=== PATIENT | female | born 1950 | race Two or more races ===

== ENCOUNTER 2024-04-08 20:56 | Emergency (ER) | payer MEDICARE, MEDICAID, SELFPAY ==
--- NOTE | 2024-04-08 21:11 | EDNOTE_ITS ---
ED General RME/HPI General Chief complaint: Altered Mental Status Stated complaint: AMS Time Seen by Provider: 04/08/24 21:10 Arrival date/time: 04/08/24 20:56 RME / HPI RME / HPI narrative: Dr. Connolly?s Main ED Evaluation: 74yo female [place] from home presents to the ED for a chief complaint of altered mental status. Per EMS, patient was sent over for evaluation due to becoming altered after she was given Morphine 0.3 orally. EMS administered Narcan en route, which woke up the patient. Evidently, the patient is on hospice, but is a full code. Full ROS is unobtainable due to the patient's AMS. Related Data Previous Rx's ?Medication ?Instructions ?Recorded nitrofurantoin 100 mg PO Q12H 7 days #14 ca ps 04/09/24 monohydrate/macrocrystals 100 mg capsule (Macrobid) nitrofurantoin 100 mg PO Q12H 7 days #14 ca ps 04/09/24 monohydrate/macrocrystals 100 mg capsule (Macrobid) nitrofurantoin 100 mg PO Q12H 7 days #14 ca ps 04/09/24 monohydrate/macrocrystals 100 mg capsule (Macrobid) Allergies Allergy/AdvReac Type Severity Reaction Status Date / Time No Known Allergies Allergy Verified 04/08/24 21:34 Review of Systems Review of Systems ROS Unobtainable: unobtainable due to mental status ED Exam Narrative Physical exam: GENERAL APPEARANCE: somnolent, arousable to voice, seems to be altered to self, answers with 1-2 word sentences, no acute distress VITALS: All vitals were reviewed and the pulse ox is % on room air, which is normal according to my interpretation. HEENT: Normocephalic, atraumatic; pupils equal, round, reactive to light; EOMI; mucous membranes pink, moist; oropharynx clear NECK: Supple LUNGS: CTABL; no wheezes, no rales, no rhonchi HEART: Regular rate, regular rhythm; normal S1, S2; no murmurs ABDOMEN: non distended; normal BS; soft, no tenderness, no guarding, no rebound; no masses, no organomegaly, no hernia BACK: no CVA tenderness EXTREMITIES: atraumatic; no edema NEUROLOGIC: somnolent; cranial nerves II-XII grossly intact; no focal sensory or motor deficits PSYCHIATRIC: appropriate mood and affect SKIN: warm, dry, normal color; no rashes Course Course Course Narrative: CXR is ordered for determining the etiology of AMS. Quality Measures none Orders Category Date Time Status Bedside Blood Glucose NOW Care 04/08/24 21:27 Completed Supervisor Fish Processing NOW Care 04/08/24 21:27 Completed Continuous Pulse Oximetry NOW Care 04/08/24 21:27 Completed In and Out Catheter X1 Care 04/08/24 21:27 Completed Insert IV NOW Care 04/08/24 21:27 Completed Miscellaneous Nursing Order NOW Care 04/08/24 23:18 Completed XR chest 1V portable Stat Exams 04/08/24 21:29 Completed Alcohol, Blood Medical Stat Lab 04/08/24 22:11 Completed Ammonia Stat Lab 04/08/24 22:11 Completed CBC Stat Lab 04/08/24 22:11 Completed Comprehensive Metabolic Panel Stat Lab 04/08/24 22:11 Completed Drug Screen,Urine Stat Lab 04/08/24 23:40 Completed Magnesium Stat Lab 04/08/24 22:11 Completed Partial Thromboplastin Time Stat Lab 04/08/24 22:11 Completed Thyroid Stimulating Hormone Stat Lab 04/08/24 22:11 Completed Troponin I Stat Lab 04/08/24 22:11 Completed Urinalysis, C/S if Indicated Stat Lab 04/08/24 23:40 Completed Urine Culture Stat Lab 04/08/24 23:40 Received Dextrose 50% Syr [D50w Syringe Abboject] Med 04/08/24 22:48 Discontinued 25 ml IV X1 ONE Magnesium Oxide [Mag-Ox 400] Med 04/09/24 00:11 Discontinued 400 mg PO X1 ONE Sodium Chloride 0.9% 500 ml [Ns] 500 ml Med 04/08/24 21:27 Discontinued IV 500 mls/hr Vital Signs Vital signs: Vital Signs Temperature 98.8 F 04/08/24 21:18 Respiratory Rate 18 04/08/24 21:18 Pulse Oximetry (%) 100 04/08/24 21:18 Oxygen Delivery Method Nasal Cannula 04/08/24 21:18 Oxygen Flow Rate 2 04/08/24 21:18 [place] Patient data External records reviewed:: [facility] previous records (Per chart review, patient has no previous ED visits or admissions to this facility.) Clinical information provided by:: EMS Social determinants that could affect healthcare access:: none Patient has the following chronic illnesses:: unknown How is presenting disease/condition affected by chronic disease/condition?: no chronic disease (PMHx is unknown) Evaluation data The following diagnostics were reviewed and interpreted by me:: lab results, radiology exam(s) and EKG tracing(s) Lab and/or radiology exams considered but not ordered:: none Interpretation Summary: CBC is normal, CMP is normal, troponin is normal, UA is positive for a UTI, UDS is positive for opiates, according to my interpretation. EKG done at 2108, NSR, rate of 9, normal axis, no ectopy, RBBB, no acute ischemia, according to my interpretation. ----- [facility] Report Signed Patient: CHASE PLATT [facility] Record#: [id number] Birthdate: 1950 Age/Sex: 74 / F Location: [facility] Attending Dr: Ordering Physician: Jose Martin Connolly MD Date of Service: 04/08/24 Procedure(s): XR chest 1V portable Accession Number(s): [id number] cc: Geo Parada MD; Jose Martin Connolly MD~ Examination: AP chest single view Technique one AP portable semiupright chest single view Standing time: April 08, 2024 at 0946 hours INDICATIONS: Altered mental status coughing today FINDINGS: Normal heart size No pneumonia or pulmonary edema Moderate osteopenia IMPRESSION: No pneumonia or pulmonary edema Dictated By: Geo Parada MD Signed By: <Electronically signed by Geo Parada MD in [place]> 04/08/24 0177 Medications Medications considered but not ordered:: none Medication administrations:: Medication Administration History Discontinued Medications Dextrose (Dextrose 50%-Water Inj 50 Ml Syringe) 25 ml IV X1 ONE Stop: 04/08/24 22:49 Last Admin: 04/08/24 22:52 Dose: 25 ml Documented By: JANAE Sodium Chloride (Ns) 500 mls @ 500 mls/hr IV .Q1H ONE Stop: 04/08/24 22:26 Last Infusion: 04/08/24 23:03 Dose: Infused Documented By: Admin: 04/08/24 22:03 Dose: 500 mls/hr Documented By: KG Magnesium Oxide (Magnesium Oxide 400 Mg Tablet) 400 mg PO X1 ONE Stop: 04/09/24 00:12 Last Admin: 04/09/24 00:36 Dose: 400 mg Documented By: KG see above Consultations Consultation(s) initiated? (list below): No Diagnosis Differential Diagnosis ED Complaint MDM: morphine overdose,infectious v metabolic, renal insuffiiciency, dehydration Most likely diagnosis given after review of the tests above:: see below Admission Indicated Admission indicated?: not indicated Explain why admission is indicated or not indicated:: Admission criteria not met. Admission Request Was there a request for admission?: No Disposition Plan Disposition Plan: Discharge Discharge Attestation Discharge Attestation: The patient and all family members were given an opportunity to ask questions and understood the discharge instructions. Discharge instructions specifically effects, indications for sooner follow up or return to the emergency department, and the expected course of current diagnosis. Patient condition: Stable Medical Decision Making MDM Narrative MDM Narrative: Scribe Attestation: 04/08/24 - Cristel Patel am scribing for and in the presence of Dr. Connolly. Differential Diagnosis Differential Diagnosis: morphine overdose,infectious v metabolic, renal insuffiiciency, dehydration Lab Data 04/08/24 22:11 04/08/24 22:11 Labs: Lab Results 04/08/24 04/08/24 Range/Units 22:11 23:40 WBC 9.7 (3.6-11.0) Thou/mm3 RBC 3.58 L (4.00-5.20) Miln/mm3 Hgb 10.2 L (12.0-16.0) g/dL Hct 30.7 L (36.0-46.0) % MCV 86 (80-100) fL MCH 28.5 (25.0-35.0) pg MCHC 33.2 (31.0-37.0) g/dl RDW Std Deviation 42.9 (36.4-46.3) fL Plt Count 410 (140-440) Thou/mm3 Neut % (Auto) 57 (37-80) % Lymph % (Auto) 34 (10-50) % Archer % (Auto) 6 (0-12) % Eos % (Auto) 2 (0-10) % Baso % (Auto) 0 (0-2.5) % Neut # (Auto) 5.5 (1.8-7.7) Thou/mm3 Lymph # (Auto) 3.3 (1.0-4.8) Thou/mm3 Archer # (Auto) 0.6 (0.0-0.8) Thou/mm3 Eos # (Auto) 0.2 (0.0-0.5) Thou/mm3 Baso # (Auto) 0.0 (0.0-0.2) Thou/mm3 Immature Gran # (Auto) 0.03 H (0.00-0.00) Thou/mm3 Absolute Nucleated RBC 0.00 (0.00-0.00) Thou/mm3 Immature Gran % 0 (0-0) % Nucleated RBC % 0 (0) /100 WBC APTT 27.1 (22.0-36.0) Seconds Sodium 138 (136-145) mMol/L Potassium 4.0 (3.4-5.1) mMol/L Chloride 102 (98-107) mMol/L Carbon Dioxide 28.2 (20.0-31.0) mMol/L Anion Gap 8 (7-16) BUN 12 (9-23) mg/dL Creatinine 0.7 (0.6-1.3) mg/dL Estim Creat Clear Calc 76.1 (>60) mL/min eGFR > 60 (60 - ) See Note BUN/Creatinine Ratio 17 (12-20) Ratio Glucose 80 (74-106) mg/dL Calculated Osmolality 274 L (275-295) Calcium 9.7 (8.3-10.6) mg/dL Corrected Calcium 9.9 (8.5-10.1) mg/dL Magnesium 1.5 L (1.6-2.6) mg/dL Total Bilirubin 0.3 (0.3-1.2) mg/dL AST 19 (0-34) U/L ALT 8 L (10-49) U/L Alkaline Phosphatase 63 (46-116) U/L Ammonia < 10 L (11-32) uMol/L Troponin I < 0.020 (0.0-0.045) ng/mL Total Protein 6.9 (5.7-8.2) gm/dL Albumin 3.8 (3.4-4.8) gm/dL Globulin 3.1 (2.3-3.5) gm/dL Albumin/Globulin Ratio 1.2 (1.2-2.2) TSH 3.26 (0.55-4.78) uIU/mL Ur Collection Type Catheter Urine Color Lt-Yellow (Lt Yel-Yel) Urine Clarity Clear (Clear/Hazy) Urine pH 6.5 (5.0-7.0) Ur Specific [place] 1.010 (1.001-1.035) Urine Protein 1+ A (Neg - Trace) Urine Glucose (UA) 2+ A (Negative) Urine Ketones Negative (Negative) Urine Blood 1+ A (Negative) Urine Nitrite Negative (Negative) Urine Bilirubin Negative (Negative) Urine Urobilinogen (Auto) Negative (0.0-1.0) mg/dL Ur Leukocyte Esterase Positive (Negative) Urine RBC 4 H (0-3) /hpf Urine WBC 60 H (0-5) /hpf Ur Squamous Epith Cells 2 (0-5) /hpf Urine Bacteria None (None) Ur Culture Indicated? Yes Urine Opiates Screen Positive A (Negative) Urine Fentanyl Screen Negative (Negative) Ur Barbiturates Screen Negative (Negative) U Amphetamin/Meth Scrn Negative (Negative) U Benzodiazepines Scrn Negative (Negative) U Cocaine Metab Screen Negative (Negative) U Marijuana (THC) Screen Negative (Negative) Ethyl Alcohol < 3.0 (0-10.0) mg/dL Discharge Plan Plan Patient Disposition: HOME (Self Care) Disposition Comment: Stable for discharge Patient condition on transfer: Stable Prescriptions/Referrals Prescriptions/Med Rec: New nitrofurantoin monohyd/m-cryst [Macrobid] 100 mg capsule 100 mg PO Q12H 7 Days Qty: 14 0RF Rx Instructions: must administer with a meal/food nitrofurantoin monohyd/m-cryst [Macrobid] 100 mg capsule 100 mg PO Q12H 7 Days Qty: 14 0RF Rx Instructions: must administer with a meal/food nitrofurantoin monohyd/m-cryst [Macrobid] 100 mg capsule 100 mg PO Q12H 7 Days Qty: 14 0RF Rx Instructions: must administer with a meal/food Referrals: [facility] [Outside] - In 1 week Problem List Clinical Impression: Urinary tract infection Patient/Caregiver Discharge Instructions Discharge Activity: activity as tolerated Education Materials: Urinary Tract Infections in Women Additional Instructions: Please follow-up with your primary care doctor within the next several days or you can follow-up at the [facility] Please return to the ER if you are not improving within 48 hours or if you worsen in any way and we will help you There is an antibiotic waiting for you at your pharmacy. This antibiotic is called Macrobid. You should take that twice a day until they are completely gone. Print Language: Sierra Leonean Stand Alone Forms: [employer] Award Info., Patient Portal Info Letter
[2024-04-08 21:18] VITALS: RESP 18; TEMP 37.1; O2SAT 100
[2024-04-08 21:21] VITALS: PULSE 87; RESP 17; O2SAT 99; BMI 36.6
--- NOTE | 2024-04-08 21:29 | XR_ITS ---
Examination: AP chest single view Technique one AP portable semiupright chest single view Standing time: April 08, 2024 at 0946 hours INDICATIONS: Altered mental status coughing today FINDINGS: Normal heart size No pneumonia or pulmonary edema Moderate osteopenia IMPRESSION: No pneumonia or pulmonary edema
[2024-04-08] MEDS: SODIUM CHLORIDE 0.9% 500 ML 500 ML IV (22:03)
[2024-04-08 22:30] LABS: Basophils % (Auto) 0 % (0-2.5); Eosinophils # (Auto) 0.2 Thou/mm3 (0.0-0.5); Eosinophils % (Auto) 2 % (0-10); Hematocrit 30.7 % (36.0-46.0); Hemoglobin 10.2 g/dL (12.0-16.0); Immature Granulocytes % (Auto) 0 % (0-0); Immature Granulocytes Auto 0.03 Thou/mm3 (0.00-0.00); Lymphocytes # (Auto) 3.3 Thou/mm3 (1.0-4.8); Lymphocytes % (Auto) 34 % (10-50); Mean Corpuscular HGB Conc 33.2 g/dl (31.0-37.0); Mean Corpuscular Hemoglobin 28.5 pg (25.0-35.0); Mean Corpuscular Volume 86 fL (80-100); Monocytes # (Auto) 0.6 Thou/mm3 (0.0-0.8); Monocytes % (Auto) 6 % (0-12); Neutrophils # (Auto) 5.5 Thou/mm3 (1.8-7.7); Neutrophils % (Auto) 57 % (37-80); Nucleated Red Blood Cell % 0 /100 WBC (0); Platelet Count 410 Thou/mm3 (140-440); RDW Standard Deviation 42.9 fL (36.4-46.3); Red Blood Count 3.58 Miln/mm3 (4.00-5.20); White Blood Count 9.7 Thou/mm3 (3.6-11.0)
[2024-04-08 22:52] LABS: Ammonia < 10 uMol/L (11-32)
[2024-04-08] MEDS: DEXTROSE 50%-WATER INJ 50 ML SYRINGE 25 ML IV (22:52)
[2024-04-08 22:56] LABS: Partial Thromboplastin Time 27.1 Seconds (22.0-36.0)
[2024-04-08 23:07] VITALS: BP 146/72; PULSE 92; RESP 15; O2SAT 100
[2024-04-08 23:10] LABS: Alanine Aminotransferase 8 U/L (10-49); Albumin, Serum 3.8 gm/dL (3.4-4.8); Albumin/Globulin Ratio 1.2 (1.2-2.2); Alkaline Phosphatase 63 U/L (46-116); Anion Gap 8 (7-16); Aspartate Amino Transferase 19 U/L (0-34); BUN/Creatinine Ratio 17 Ratio (12-20); Bilirubin,Total 0.3 mg/dL (0.3-1.2); Blood Urea Nitrogen 12 mg/dL (9-23); Calcium 9.7 mg/dL (8.3-10.6); Calcium (Corrected) 9.9 mg/dL (8.5-10.1); Carbon Dioxide 28.2 mMol/L (20.0-31.0); Chloride 102 mMol/L (98-107); Creatinine (Component) 0.7 mg/dL (0.6-1.3); Estimated Creatinine Clearance 76.1 mL/min (>60); Globulin 3.1 gm/dL (2.3-3.5); Glucose 80 mg/dL (74-106); Magnesium 1.5 mg/dL (1.6-2.6); Osmolality,Calculated 274 (275-295); Sodium 138 mMol/L (136-145); Thyroid Stimulating Hormone 3.26 uIU/mL (0.55-4.78); Total Protein 6.9 gm/dL (5.7-8.2); Troponin I < 0.020 ng/mL (0.0-0.045); eGFR > 60 See Note
[2024-04-08 23:11] LABS: Alcohol, Blood Medical < 3.0 mg/dL (0-10.0)
[2024-04-08 23:47] LABS: Collection Type, Urine Catheter
[2024-04-08 23:58] LABS: Bilirubin,Urine Negative (Negative); Blood,Urine 1+ (Negative); Clarity,Urine Clear (Clear/Hazy); Color,Urine Lt-Yellow (Lt Yel-Yel); Culture Indicated,Urine Yes; Glucose, Urine 2+ (Negative); Ketones,Urine Negative (Negative); Leukocyte Esterase,Urine Positive (Negative); Nitrite,Urine Negative (Negative); PH,Urine 6.5 (5.0-7.0); Protein,Urine 1+ (Neg - Trace); RBC,Urine 4 /hpf (0-3); Squamous Epithelial Cell,Urine 2 /hpf (0-5); Urobilinogen,Urine Negative mg/dL (0.0-1.0); WBC,Urine 60 /hpf (0-5)
[2024-04-09 00:05] LABS: Amphetamine/Methamp Scrn,U Negative (Negative); Barbiturate Screen,Urine Negative (Negative); Benzodiazepines Screen,Urine Negative (Negative); Benzoylecgonine Screen, Ur Negative (Negative); Fentanyl Screen,Urine Negative (Negative); Opiate Screen,Urine Positive (Negative); THC Screen,Urine Negative (Negative)
[2024-04-09] MEDS: MAGNESIUM OXIDE 400 MG TABLET PO (00:36)
[2024-04-09 00:42] VITALS: BP 154/75; PULSE 86; RESP 17; O2SAT 96
== END 2024-04-09 00:33 | disposition home or self-care (01) ==
LOC: SERX 04-09 06:34
PROVIDERS: Emergency Provider Emergency Medicine; Referring Provider Emergency Medicine
DX: N39.0 Urinary tract infection, site not specified (principal); R41.82 Altered mental status, unspecified; R05.9 Cough, unspecified
CPT/HCPCS: 36415; 71045; 80053; 80307; 80320; 81001; 82140; 83735; 84443; 84484; 85025; 85730; 87077; 87086; 87186; 96360; 99284; J7040; A9270; G0480

== ENCOUNTER 2024-05-04 10:07 | Emergency (ER) | payer MEDICARE, MEDICAID, SELFPAY ==
[2024-05-04 10:10] VITALS: BP 134/74; PULSE 121; RESP 18; TEMP 36.5; O2SAT 96
[2024-05-04 10:20] VITALS: PULSE 126; RESP 18; O2SAT 97; BMI 28.1
[2024-05-04 10:41] VITALS: BP 126/73; PULSE 113; RESP 16; TEMP 37.6; O2SAT 97
[2024-05-04 12:34] VITALS: BP 125/61; PULSE 98; RESP 15; TEMP 37; O2SAT 98
--- NOTE | 2024-05-04 12:36 | EDNOTE_ITS ---
ED Weakness RME/HPI General Chief complaint: Weakness Stated complaint: ALTERED WI/ FEVER, TACHYCARDIA, PAIN URINATION Time Seen by Provider: 05/04/24 11:48 Arrival date/time: 05/04/24 10:07 RME / HPI RME / HPI Narrative: DR. MAX MAIN ED EVALUATION: 74 year old female presents to the Emergency Department [facility] from care home with complaints of generalized weakness and nausea. Patient herself does not have any complaints. Patient thinks she came from home but she came from [facility]. PMHx: History of CVA with right sided deficits. Hypertension and diabetes. Related Data Previous Rx's ?Medication ?Instructions ?Recorded cephalexin 500 mg capsule 500 mg PO QID 3 days #12 cap s 05/04/24 Allergies Allergy/AdvReac Type Severity Reaction Status Date / Time No Known Allergies Allergy Verified 04/08/24 21:34 Review of Systems Review of Systems ROS Unobtainable: unobtainable due to mental status Past Medical History Past Medical History NEUROLOGIC: Positive Cerebrovascular Accident (RIGHT DEFICEITS) CARDIAC: Positive Hypertension; Negative Congestive Heart Failure RESPIRATORY: Negative Chronic Obstructive Pulmonary Disease (COPD) GENITOURINARY: Negative Renal Disease ENDOCRINE: Positive Diabetes Mellitus Type 2; Negative Diabetes Mellitus Type 1 Social History SMOKING STATUS: Never smoker SUBSTANCE USE: does not use ALCOHOL: Never ED Exam Narrative Physical exam: GENERAL APPEARANCE: Generally well-appearing, in no acute distress. HEENT: NC, AT. Dry mucosa. EOMI, clear conjunctiva, oropharynx clear. NECK: Supple without lymphadenopathy. No stiffness or restricted ROM. HEART: Normal rate and regular rhythm, normal S1/S1, no m/r/g LUNGS: CTAB, moving air well. No crackles or wheezes are heard. ABDOMEN: Soft, nontender, nondistended with good bowel sounds heard. BACK: No midline C/T/L spine pain or deformity, No CVAT, no obvious deformity. EXTREMITIES: Without cyanosis, clubbing or edema. MUSCULOSKELETAL: FROM of all major joints, no chest tenderness NEUROLOGICAL: Right facial droop. Right hemiplegia. Slurred speech. Skin: Warm and dry without any rash. Course Quality Measures none Orders Category Date Time Status Bedside COVID-19 Antigen Test NOW Care 05/04/24 12:39 Active Bedside Influenza A&B Antigen Test NOW Care 05/04/24 12:39 Completed In and Out Catheter X1 Care 05/04/24 12:[address] head/brain wo con Stat Exams 05/04/24 12:39 Completed CBC Stat Lab 05/04/24 13:46 Completed CMP [Comprehensive Metabolic Panel] Stat Lab 05/04/24 13:46 Completed Urinalysis Stat Lab 05/04/24 13:29 Completed Sodium Chloride 0.9% 1000 ml [Ns] 1,000 ml Med 05/04/24 12:39 Discontinued IV 999 mls/hr cefTRIAXone [Rocephin] 1,000 mg Med 05/04/24 15:05 Discontinued Lidocaine 1% 20 ml [Xylocaine 1% 20 ML] 2.1 ml IM X1 Vital Signs Vital signs: Vital Signs Temperature 97.7 F 05/04/24 10:10 Pulse Rate 121 H 05/04/24 10:10 Respiratory Rate 18 05/04/24 10:10 Blood Pressure 134/74 H 05/04/24 10:10 Pulse Oximetry (%) 96 05/04/24 10:10 Oxygen Delivery Method Room Air 05/04/24 10:10 Weakness MDM Narrative MDM Narrative:: IAnum am scribing for and in the presence of Dr. Max. Patient data External records reviewed:: [facility] previous records (Reviewed last ED visit dated 04/09/24, discharged with the following: UTI), EMS form and Long Term records Clinical information provided by:: patient and EMS Social determinants that could affect healthcare access:: housing (care home) Patient has the following chronic illnesses:: History of CVA with right sided deficits. Hypertension and diabetes. How is presenting disease/condition affected by chronic disease/condition?: exacerbated by Evaluation data The following diagnostics were reviewed and interpreted by me:: lab results and radiology exam(s) Lab and/or radiology exams considered but not ordered:: none Interpretation Summary: Procedure(s): CT head/brain wo con Accession Number(s): [id number] cc: Hermann Max MD; Geo Parada MD~ Examination: CT brain head without contrast. 2-D sagittal coronal reconstructions Date and time of exam:May 04, 2024 1332 hrs. Indications: Onset altered mental status today CTDI: vol (mGy):49.8 DLP: (mGycm):1034 Technique: Multiple CT axial sections of the brain have been obtained, 5 mm slice thickness. Contrast has not been administered. 2-D sagittal, coronal reconstructions have been obtained Low dose protocols were performed. One or more of the following dose reduction techniques were used; automated exposure control, adjustment of the mA and/or KV according to patient size, use of iterative reconstruction technique. Findings: No significant ventricular enlargement. Old infarct left basal ganglia Intra-axial or extra-axial hemorrhage density is not seen. No mass effect or midline shift Basal cisterns are not remarkable. Fourth ventricle is midline. Cranial vault intact. Impression: Negative for acute hemorrhage, mass effect or midline shift Advise clinical correlation and follow-up accordingly Dictated By: Geo Parada MD Medications / Prescriptions Medications or Prescriptions considered but not ordered:: none Medication administrations:: Medication Administration History Discontinued Medications Ceftriaxone Sodium 1,000 mg/ (Lidocaine HCl 2.1 ml) 0 mg IM X1 ONE Stop: 05/04/24 15:06 Last Admin: 05/04/24 16:34 Dose: 2.1 mg Documented By: JOSE MARIA Sodium Chloride (Ns) 1,000 mls @ 999 mls/hr IV .Q1H1M ONE Stop: 05/04/24 13:39 Last Infusion: 05/04/24 15:36 Dose: Infused Documented By: JOSE MARIA Admin: 05/04/24 13:41 Dose: 999 mls/hr Documented By: JOE see above if any Consultations Consultation(s) initiated? (list below): No Diagnosis Weakness Differential Diagnosis: acute myocardial infarction, dehydration and other (CVA, TIA) Most likely diagnosis given after review of the tests above:: Acute UTI Admission Indicated Admission indicated?: not indicated Admission Request Was there a request for admission?: No Disposition Plan Disposition Plan: Discharge Discharge Attestation Discharge Attestation: The patient and all family members were given an opportunity to ask questions and understood the discharge instructions. Discharge instructions specifically effects, indications for sooner follow up or return to the emergency department, and the expected course of current diagnosis. Patient condition: Stable Discharge Plan Plan Patient Disposition: HOME (Self Care) Prescriptions/Referrals Prescriptions/Med Rec: New cephalexin 500 mg capsule 500 mg PO QID 3 Days Qty: 12 0RF Problem List Clinical Impression: Acute UTI Patient/Caregiver Discharge Instructions Education Materials: ED CYSTITIS Female Adult Print Language: Slovenian Stand Alone Forms: [employer]ica Award Info., Patient Portal Info Letter
--- NOTE | 2024-05-04 12:39 | XR_ITS ---
Examination: CT brain head without contrast. 2-D sagittal coronal reconstructions Date and time of exam:May 04, 2024 1332 hrs. Indications: Onset altered mental status today CTDI: vol (mGy):49.8 DLP: (mGycm):1034 Technique: Multiple CT axial sections of the brain have been obtained, 5 mm slice thickness. Contrast has not been administered. 2-D sagittal, coronal reconstructions have been obtained Low dose protocols were performed. One or more of the following dose reduction techniques were used; automated exposure control, adjustment of the mA and/or KV according to patient size, use of iterative reconstruction technique. Findings: No significant ventricular enlargement. Old infarct left basal ganglia Intra-axial or extra-axial hemorrhage density is not seen. No mass effect or midline shift Basal cisterns are not remarkable. Fourth ventricle is midline. Cranial vault intact. Impression: Negative for acute hemorrhage, mass effect or midline shift Advise clinical correlation and follow-up accordingly
[2024-05-04 13:34] LABS: Collection Type, Urine Catheter; Squamous Epithelial Cell,Urine 0 /hpf (0-5)
[2024-05-04] MEDS: SODIUM CHLORIDE 0.9% 1000 ML 1,000 ML 999 ML IV (13:41)
[2024-05-04 13:51] LABS: Bacteria,Urine 1+; Bilirubin,Urine Negative (Negative); Blood,Urine 3+ (Negative); Glucose, Urine Negative (Negative); Hyaline Casts,Urine < 1 /hpf (0-1); Ketones,Urine 3+ (Negative); Leukocyte Esterase,Urine Positive (Negative); Nitrite,Urine Positive (Negative); Protein,Urine 3+ (Neg - Trace); RBC,Urine 73 /hpf (0-3); Specific Gravity,Urine 1.024 (1.001-1.035); Triple Phosphate Crystal,Urine Rare; WBC,Urine 265 /hpf (0-5)
[2024-05-04 13:51] LABS: Basophils # (Auto) 0.1 Thou/mm3 (0.0-0.2); Basophils % (Auto) 1 % (0-2.5); Eosinophils # (Auto) 0.3 Thou/mm3 (0.0-0.5); Eosinophils % (Auto) 3 % (0-10); Hematocrit 36.9 % (36.0-46.0); Hemoglobin 12.5 g/dL (12.0-16.0); Immature Granulocytes % (Auto) 0 % (0-0); Immature Granulocytes Auto 0.05 Thou/mm3 (0.00-0.00); Lymphocytes # (Auto) 2.7 Thou/mm3 (1.0-4.8); Lymphocytes % (Auto) 21 % (10-50); Mean Corpuscular HGB Conc 33.9 g/dl (31.0-37.0); Mean Corpuscular Hemoglobin 28.9 pg (25.0-35.0); Mean Corpuscular Volume 85 fL (80-100); Monocytes # (Auto) 0.6 Thou/mm3 (0.0-0.8); Monocytes % (Auto) 5 % (0-12); Neutrophils # (Auto) 8.9 Thou/mm3 (1.8-7.7); Neutrophils % (Auto) 71 % (37-80); Nucleated Red Blood Cell % 0 /100 WBC (0); Platelet Count 451 Thou/mm3 (140-440); Red Blood Count 4.32 Miln/mm3 (4.00-5.20); White Blood Count 12.6 Thou/mm3 (3.6-11.0)
[2024-05-04 14:12] LABS: Alanine Aminotransferase 10 U/L (10-49); Albumin, Serum 3.9 gm/dL (3.4-4.8); Albumin/Globulin Ratio 1.1 (1.2-2.2); Alkaline Phosphatase 67 U/L (46-116); Anion Gap 14 (7-16); Aspartate Amino Transferase 21 U/L (0-34); BUN/Creatinine Ratio 26 Ratio (12-20); Bilirubin,Total 0.2 mg/dL (0.3-1.2); Blood Urea Nitrogen 26 mg/dL (9-23); Calcium 9.7 mg/dL (8.3-10.6); Calcium (Corrected) 9.8 mg/dL (8.5-10.1); Chloride 101 mMol/L (98-107); Estimated Creatinine Clearance 46.6 mL/min (>60); Globulin 3.6 gm/dL (2.3-3.5); Glucose 95 mg/dL (74-106); Osmolality,Calculated 276 (275-295); Potassium 4.5 mMol/L (3.4-5.1); Sodium 136 mMol/L (136-145); Total Protein 7.5 gm/dL (5.7-8.2); eGFR 60 See Note
[2024-05-04 14:32] LABS: Clarity,Urine Turbid (Clear/Hazy); Color,Urine Lt-Yellow (Lt Yel-Yel)
[2024-05-04 14:37] VITALS: BP 140/62; PULSE 111; RESP 13; TEMP 36.7; O2SAT 98
[2024-05-04 16:31] VITALS: BP 147/60; PULSE 106; RESP 18; TEMP 36.6; O2SAT 97
[2024-05-04] MEDS: cefTRIAXone 1,000 MG, LIDOCAINE 1% 20 ML 2.1 ML IM (16:34)
--- NOTE | 2024-05-04 17:35 | PC.CC ---
Sponge Buffer, Lynda informed by Gail that patient was going to be discharge home. Patient is bedbound due to a previous CVA. SW contacted patient's [id number], Cinthia ([phone]) that she was going to discharge home via stretcher. [facility]: [id number]. Information faxed to [facility].
== END 2024-05-04 21:07 | disposition home or self-care (01) ==
LOC: SERX 17:27
PROVIDERS: Emergency Provider Emergency Medicine; PCP Hospitalist
DX: N39.0 Urinary tract infection, site not specified (principal); I10 Essential (primary) hypertension; E11.9 Type 2 diabetes mellitus without complications; I69.351 Hemiplegia and hemiparesis following cerebral infarction affecting right dominant side
CPT/HCPCS: 51701; 36415; 70450; 80053; 81001; 85025; 87400; 87811; 96360; 96361; 96372; 99284; J0696; J3490; J7030

== ENCOUNTER 2024-05-23 10:18 | Inpatient (IN) | payer MEDICARE, MEDICAID, SELFPAY ==
[2024-05-23] VITALS (8 sets, daily range): BP systolic 118–139; BP diastolic 63–84; PULSE 90–110; RESP 16–98; TEMP 36.3–37.7; O2SAT 94–98; BMI 26.6
--- NOTE | 2024-05-23 11:09 | PC.NURSE ---
Patient BIBA via gurney presenting with Altered mental status reported by EMS, per family patient went to bed last night and awoke about 9am and noted patient was not well. Patient at this time, is non verbal only calling out daddy does respond to name, does follow some commands, hx of previous stroke noted right arm defecit and facial paralysis. Patient wears a brief. Patient also with episodes of emesis with EMS x3. RN attempted to call family to inquire of patient condition, no answer, phone went directly to voicemail at [place] [phone].
--- NOTE | 2024-05-23 11:23 | EKG_ITS ---
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
--- NOTE | 2024-05-23 11:24 | XR_ITS ---
EXAMINATION: XR chest 1V SEPSIS PROTOCOL ORDERING PROVIDER: IDANIA Bowers HISTORY: Sepsis TECHNIQUE: Single portable AP radiograph of the chest. COMPARISON: 04/08/2024, chest radiographs. FINDINGS: Lines and Tubes: Overlying monitoring leads. Lungs: No consolidation. Probable emphysematous changes. Pleura: No pneumothorax or pleural effusion. Cardiomediastinal Silhouette: Uncoiled aorta. Calcified aortic arch. Soft Tissues/Bones: Diffuse osteopenia. Moderate degenerative changes. IMPRESSION: No acute pulmonary findings.
--- NOTE | 2024-05-23 11:24 | XR_ITS ---
EXAMINATION: CT head/brain wo con ORDERING PROVIDER: IDANIA Bowers HISTORY: ams TECHNIQUE: CT scanner was used in the volumetric, helical non-contrast acquisition of the head with 2-D and 3-D reformats created on a separate workstation and submitted for interpretation. Institutional dose reducing protocols were utilized. Imaging is motion degraded. RADIATION DOSE: DLP 989 mGy-cm COMPARISON: 05/04/2024, noncontrast CT head.. FINDINGS: No acute intracranial hemorrhage, mass effect, or midline shift. Similar extensive periventricular and subcortical white matter hypodensities. Similar probable old lacunar infarcts left basal ganglia, thalamus, external capsule. Mild global parenchymal volume loss with resultant mild prominence of the ventricles and sulci. Basal cisterns preserved. No hyperdense vessel sign. Atrophy of the cerebellar vermis. No skull fracture identified. Evolving high right frontal scalp hematoma. Diffuse demineralization. IMPRESSION: 1. No acute intracranial hemorrhage, mass effect, or midline shift. 2. Evolving high right frontal scalp hematoma. 3. Findings favored to represent extensive chronic small vessel ischemic changes and old left lacunar infarcts.
--- NOTE | 2024-05-23 11:25 | EDNOTE_ITS ---
Altered Mental Status RME/HPI General Chief Complaint: Altered Mental Status Stated Complaint: AMS Time Seen by Provider: 05/23/24 11:15 Arrival date/time: 05/23/24 10:18 RME / HPI RME / HPI narrative: 74-year-old who was brought in by family for evaluation regarding altered mental status. patient has significant history of CVA with right-sided weakness. Patient last well-known time was last night before going to sleep, patient woke up this morning altered. Patient nonverbal on my initial evaluation.. Was noted to have fever and tachycardic, sepsis alert was initiated right away. 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 This morning patient was noted to be vomiting. And more altered than usual. Patient was not noted to have fever. No diarrhea or constipation noted. Related Data Allergies Allergy/AdvReac Type Severity Reaction Status Date / Time No Known Allergies Allergy Verified 04/08/24 21:34 Review of Systems Review of Systems Narrative Review of Systems: Review of system reviewed and within normal limits except mentioned in HPI ED Exam Narrative Physical exam: VITAL SIGNS: Reviewed. GENERAL APPEARANCE: Alert and awake, nonverbal, does not follows commands, no acute distress, HEAD AND FACE: Non-traumatic. ENT: PERRL, pink conjunctivitis, eyelid no trauma, Mucous membrane moist. NECK: Supple, nontender, no nuchal rigidity. CHEST: No tenderness, no crepitus, no paradoxical movement, no retractions. LUNGS: Clear, well ventilated, symmetric, no rales, no wheezing, no ronchi, no stridor, good breath sounds bilaterally. HEART: Regular rate, regular rhythm, no murmur, no gallops. ABDOMEN: Soft, positive bowel sounds, nondistended, no guarding, nontender, no rebound, no masses, RECTAL: Deferred. GENITAL: Deferred. NEUROLOGICAL: Gross motor function intact sensory function intact, Appropriate for age. MUSCULOSKELETAL: low back nontender, full range of motion. EXTREMITIES: Nontender, full range of motion. SKIN: Color pink, dry, no rash, no lacerations, no abrasions, no contusions. LYMPHATICS: Deferred. Course Quality Measures none Orders Category Date Time Status Bedside COVID-19 Antigen Test NOW Care 05/23/24 11:25 Active Bedside Influenza A&B Antigen Test NOW Care 05/23/24 11:[address] Screening NOW Care 05/23/24 15:31 Active Multimedia Teacher STAT Care 05/23/24 11:23 Active Continuous Pulse Oximetry STAT Care 05/23/24 11:23 Completed EKG (ED ONLY) *Do not use* NOW Care 05/23/24 11:23 Completed In and Out Catheter X1PRN Care 05/23/24 11:23 Completed Insert IV NOW Care 05/23/24 11:23 Active NPO STAT Care 05/23/24 11:23 Active Strict Intake and Output Routine Care 05/23/24 11:23 Ordered Consult to Cardiology Stat Cons 05/23/24 17:[address] abdomen pelvis w con Stat Exams 05/23/24 15:[address] head/brain wo con Stat Exams 05/23/24 11:24 Completed EKG (ED Only) Stat Exams 05/23/24 11:23 Draft XR chest 1V SEPSIS PROTOCOL Stat Exams 05/23/24 11:24 Completed B-Type Natriuretic Peptide Stat Lab 05/23/24 11:33 Completed Blood Culture (Lab) Stat Lab 05/23/24 11:33 Received CBC Stat Lab 05/23/24 11:33 Completed Comprehensive Metabolic Panel Stat Lab 05/23/24 11:33 Completed LDH (Lactate Dehydrogenase) Stat Lab 05/23/24 11:33 Completed Lactate (Lactic Acid) Stat Lab 05/23/24 11:33 Completed Lactic Acid, 3 HR Stat Lab 05/23/24 15:35 Completed Lipase Stat Lab 05/23/24 11:33 Completed Magnesium Stat Lab 05/23/24 11:33 Completed Partial Thromboplastin Time Stat Lab 05/23/24 11:33 Completed Phosphorous Stat Lab 05/23/24 11:33 Completed Procalcitonin Stat Lab 05/23/24 11:33 Completed Prothrombin Time with INR Stat Lab 05/23/24 11:33 Completed Troponin I Stat Lab 05/23/24 11:33 Completed Troponin I Stat Lab 05/23/24 13:50 Completed Troponin I Stat Lab 05/23/24 18:19 Received Urinalysis Stat Lab 05/23/24 13:16 Completed Urine Culture Stat Lab 05/23/24 13:16 Received Aspirin Med 05/23/24 15:17 Discontinued 325 mg PO X1 ONE Metoclopramide Inj [Reglan Inj] Med 05/23/24 15:28 Discontinued 10 mg IVP X1 ONE Morphine Inj Med 05/23/24 15:28 Discontinued 4 mg IVP X1 ONE Ondansetron Inj [Zofran Inj] Med 05/23/24 15:28 Discontinued 4 mg IV X1 ONE Sodium Chloride 0.9% 1000 ml [Ns] 1,000 ml Med 05/23/24 11:24 Discontinued IV 999 mls/hr Sodium Chloride 0.9% 1000 ml [Ns] 1,000 ml Med 05/23/24 15:35 Discontinued IV 999 mls/hr cefTRIAXone [Rocephin] 1,000 mg Med 05/23/24 11:23 Discontinued SODIUM CHLORIDE 0.9% (Popper) [Ns 0.9% (P)] 50 ml IV X1 Oxygen Delivery NOW RT 05/23/24 11:23 Active Vital Signs Vital signs: Vital Signs Temperature 99.9 F 05/23/24 10:49 Pulse Rate 108 H 05/23/24 10:49 Respiratory Rate 16 05/23/24 10:49 Blood Pressure 139/84 H 05/23/24 10:49 Pulse Oximetry (%) 96 05/23/24 10:49 Oxygen Delivery Method Room Air 05/23/24 10:49 Altered Mental Status MDM Narrative MDM Narrative:: 74-year-old who was brought in by family for evaluation regarding altered mental status. patient has significant history of CVA with right-sided weakness. Patient last well-known time was last night before going to sleep, patient woke up this morning altered. Patient nonverbal on my initial evaluation.. Was noted to have fever and tachycardic, sepsis alert was initiated right away. 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 This morning patient was noted to be vomiting. And more altered than usual. Patient was not noted to have fever. No diarrhea or constipation noted. EKG as interpreted by me shows sinus tachycardia, ventricular rate of 110 bpm, W[place] interval 127 MS, no ST segment elevation or depression noted. Laboratory workup is significant for leukocytosis of 11.9 urinalysis no UTI, creatinine is normal lactic acid 2.1 magnesium 1.5 troponin initially was 0.149, after 3 hours went up to 0.314 On multiple reevaluation, patient is now able to talk, and complaining of epigastric pain I ordered CT scan of the abdomen and showed . Very limited examination due to patient motion and streak artifact. 2. Findings which can be seen with developing stercoral colitis. 3. Findings of concurrent colonic constipation and gastroenteritis. 4. Questionable proximal right femoral fracture in the setting of postsurgical changes. 5. Nonspecific very mild central intrahepatic biliary dilation. 6. Indeterminate 1.0 cm left adrenal nodule. Routine outpatient CT versus MR adrenal protocol is available for further characterization as clinically indicated. 7. Colonic diverticulosis without CT findings for diverticulitis. 8. Severe vasculopathic changes. 9. Hepatic steatosis. Denies any other complaints. Patient is hospice however patient is full code Patient was given IV fluids, IV Zosyn and aspirin. I consulted Dr. Núñez, cardiology on-call, told me that he will comanage the patient. Thank you Dr. Núñez Patient data External records reviewed:: EMS form Clinical information provided by:: patient and family Social determinants that could affect healthcare access:: none Patient has the following chronic illnesses:: CVA with right-sided paralysis, patient hospice however full code How is presenting disease/condition affected by chronic disease/condition?: exacerbated by Evaluation data The following diagnostics were reviewed and interpreted by me:: lab results, radiology exam(s) and EKG tracing(s) Lab and/or radiology exams considered but not ordered:: None Interpretation Summary: EKG showed sinus tachycardia, ventricular rate of 110 bpm, W[place] interval 127 MS, no ST segment elevation depression noted. The rest of the lab see MDM Medications / Prescriptions Medications or Prescriptions considered but not ordered:: none Medication administrations:: Medication Administration History Discontinued Medications Aspirin (Aspirin 325 Mg Tablet) 325 mg PO X1 ONE Stop: 05/23/24 15:18 Last Admin: 05/23/24 15:49 Dose: 325 mg Documented By: ELAN Ceftriaxone Sodium 1,000 mg/ (Sodium Chloride) 50 mls @ 100 mls/hr IV X1 ONE Stop: 05/23/24 11:52 Last Infusion: 05/23/24 12:34 Dose: Infused Documented By: Admin: 05/23/24 12:04 Dose: 100 mls/hr Documented By: ELAN Sodium Chloride (Ns) 1,000 mls @ 999 mls/hr IV .Q1H1M ONE Stop: 05/23/24 12:24 Last Infusion: 05/23/24 13:40 Dose: Infused Documented By: Admin: 05/23/24 12:06 Dose: 999 mls/hr Documented By: ELAN Sodium Chloride (Ns) 1,000 mls @ 999 mls/hr IV .Q1H1M ONE Stop: 05/23/24 16:35 Last Infusion: 05/23/24 18:13 Dose: Infused Documented By: Admin: 05/23/24 15:50 Dose: 999 mls/hr Documented By: ELAN Metoclopramide HCl (Metoclopramide Inj 5 Mg/Ml Vial 2 Ml) 10 mg IVP X1 ONE; Protocol Stop: 05/23/24 15:29 Last Admin: 05/23/24 15:46 Dose: 10 mg Documented By: ELAN Morphine Sulfate (Morphine Sulf Inj 10 Mg/Ml Vial) 4 mg IVP X1 ONE Stop: 05/23/24 15:29 Last Admin: 05/23/24 15:49 Dose: 4 mg Documented By: ELAN Ondansetron HCl (Ondansetron Inj 2 Mg/Ml Inj 2 Ml) 4 mg IV X1 ONE; Protocol Stop: 05/23/24 15:29 Last Admin: 05/23/24 15:41 Dose: 4 mg Documented By: ELAN Aspirin, ceftriaxone IV, IV fluids x 2 L, IV Reglan and morphine and Zofran Consultations Consultation(s) initiated? (list below): No Diagnosis Differential diagnosis altered mental status: altered mental status and sepsis Most likely diagnosis given after review of the tests above:: Elevated troponin, altered mental status Admission Indicated Admission indicated?: indicated Explain why admission is indicated or not indicated:: Patient is to be admitted for further management Admission Request Was there a request for admission?: Yes Admission Attestation Admission request attestation: Discussed case with [Dr. Vasquez] from Hospitalist service regarding admission. Discussed patients ED course, exam findings, labs, and radiology results. The Hospitalist [agrees] to accept the patient for admission. Disposition Plan Disposition Plan: Admit Discharge Plan Plan Patient Disposition: Admit Acute Care w/in Hospital Disposition Comment: Stable Prescriptions/Referrals Referrals: No Primary/Family,Physician [Primary Care Provider] - In 1 week Problem List Clinical Impression: Altered mental status, Elevated troponin Patient/Caregiver Discharge Instructions Discharge Activity: activity as tolerated Print Language: Portuguese Stand Alone Forms: [employer] Award Info., Patient Portal Info Letter
--- NOTE | 2024-05-23 11:40 | PC.NURSE ---
Rn spoke with Nati RN at [facility], patient is currently on service with hospice, patient remains full code and per Nati will fax POLST. Per Nati, patient is normally able to speak, verbalize needs and attempts to get out of bed alone. Patient is cared for by family but there has been a recent event with patients mother and new stroke diagnosis and family has not been as attentive to patient. Per Nati, patient could be more confused than her baseline.
[2024-05-23 11:42] LABS: Lactate (Lactic Acid) 2.1 mMol/L (0.4-2.0)
[2024-05-23 11:44] LABS: Basophils % (Auto) 0 % (0-2.5); Eosinophils % (Auto) 0 % (0-10); Hematocrit 40.2 % (36.0-46.0); Hemoglobin 13.1 g/dL (12.0-16.0); Immature Granulocytes % (Auto) 1 % (0-0); Immature Granulocytes Auto 0.11 Thou/mm3 (0.00-0.00); Lymphocytes # (Auto) 1.2 Thou/mm3 (1.0-4.8); Lymphocytes % (Auto) 10 % (10-50); Mean Corpuscular HGB Conc 32.6 g/dl (31.0-37.0); Mean Corpuscular Hemoglobin 28.7 pg (25.0-35.0); Mean Corpuscular Volume 88 fL (80-100); Monocytes # (Auto) 0.3 Thou/mm3 (0.0-0.8); Monocytes % (Auto) 3 % (0-12); Neutrophils # (Auto) 10.2 Thou/mm3 (1.8-7.7); Neutrophils % (Auto) 86 % (37-80); Nucleated Red Blood Cell % 0 /100 WBC (0); Platelet Count 419 Thou/mm3 (140-440); RDW Standard Deviation 48.8 fL (36.4-46.3); Red Blood Count 4.56 Miln/mm3 (4.00-5.20); White Blood Count 11.9 Thou/mm3 (3.6-11.0)
[2024-05-23 11:59] LABS: B-Type Natriuretic Peptide 54 pg/mL (0-100)
[2024-05-23] MEDS: cefTRIAXone 1,000 MG in SODIUM CHLORIDE 0.9% (Popper) 50 ML 100 MG IV (12:04)
[2024-05-23] MEDS: SODIUM CHLORIDE 0.9% 1000 ML 1,000 ML 999 ML IV ×2 (12:06→15:50)
[2024-05-23 12:11] LABS: Partial Thromboplastin Time 26.5 Seconds (22.0-36.0); Prothrombin Time 11.4 Seconds (9.0-12.2)
[2024-05-23 12:14] LABS: Alanine Aminotransferase 8 U/L (10-49); Alkaline Phosphatase 74 U/L (46-116); Anion Gap 13 (7-16); Aspartate Amino Transferase 22 U/L (0-34); BUN/Creatinine Ratio 24 Ratio (12-20); Bilirubin,Total 0.5 mg/dL (0.3-1.2); Blood Urea Nitrogen 29 mg/dL (9-23); Chloride 100 mMol/L (98-107); Creatinine (Component) 1.2 mg/dL (0.6-1.3); Estimated Creatinine Clearance 42.3 mL/min (>60); Globulin 4.1 gm/dL (2.3-3.5); Glucose 146 mg/dL (74-106); Lipase 44 U/L (12-53); Magnesium 1.5 mg/dL (1.6-2.6); Osmolality,Calculated 286 (275-295); Phosphorous 3.8 mg/dL (2.4-5.1); Potassium 4.5 mMol/L (3.4-5.1); Procalcitonin 0.48 ng/ml (0.0-0.49); Sodium 139 mMol/L (136-145); Total Protein 8.1 gm/dL (5.7-8.2); eGFR 48 See Note
[2024-05-23 12:16] LABS: Troponin I 0.149 ng/mL (0.0-0.045)
[2024-05-23 13:24] LABS: Collection Type, Urine Clean Catch
[2024-05-23 13:32] LABS: Bacteria,Urine Rare; Bilirubin,Urine Negative (Negative); Blood,Urine Trace (Negative); Clarity,Urine Clear (Clear/Hazy); Color,Urine Yellow (Lt Yel-Yel); Glucose, Urine Negative (Negative); Hyaline Casts,Urine < 1 /hpf (0-1); Ketones,Urine 1+ (Negative); Leukocyte Esterase,Urine Positive (Negative); Nitrite,Urine Negative (Negative); PH,Urine 5.5 (5.0-7.0); Protein,Urine 2+ (Neg - Trace); RBC,Urine 1 /hpf (0-3); Specific Gravity,Urine 1.023 (1.001-1.035); Squamous Epithelial Cell,Urine 2 /hpf (0-5); Urobilinogen,Urine Negative mg/dL (0.0-1.0); WBC,Urine 7 /hpf (0-5)
[2024-05-23 14:38] LABS: Reflex Lactate? Y
[2024-05-23 15:07] LABS: Troponin I 0.314 ng/mL (0.0-0.045)
[2024-05-23 15:22] LABS: LDH (Lactate Dehydrogenase) 265 U/L (120-246)
--- NOTE | 2024-05-23 15:30 | XR_ITS ---
EXAMINATION: CT abdomen pelvis w con ORDERING PROVIDER: IDANIA Bowers HISTORY: Epigastric pain TECHNIQUE: After the uneventful administration of 60 cc of IV Isovue-370 and no oral contrast, CT was used in the volumetric, helical imaging acquisition of the abdomen and pelvis with 2-D and 3-D reformats generated on a separate workstation and submitted for interpretation. Institutional dose reducing protocols were utilized. Evaluation of hollow viscus and solid viscera is limited secondary to lack of oral contrast. Examination is markedly limited due to patient motion, as well as metallic streak artifact and poor photon penetration from overlying extremities. RADIATION DOSE: DLP 758 mGy-cm COMPARISON: None. FINDINGS: Very limited examination due to significant patient motion, metallic streak artifact, and streak artifact from overlying extremities. Hepatic steatosis. Pippa's morphology. Decompressed gallbladder. Trace central intrahepatic biliary dilation. Moderate atrophy of the pancreas. Calcifications in the pancreatic head may be from chronic pancreatitis. Spleen unremarkable. Incidental splenule. Nodular adrenal gland and on the right without discrete lesion. 1.0 cm left adrenal nodule measuring 46 Hounsfield units. Mild bilateral perinephric fat stranding. No pelvic caliectasis. Subcentimeter hypodensity superior left renal pole too small to characterize. Rectum is distended by 7.6 cm stool ball with mild surrounding inflammatory changes. Inflammatory changes about the distal rectum/annulus. Multiple colonic diverticula without surrounding inflammatory changes. Large colonic stool burden, inspissated. Fluid density in the cecum and terminal ileum. Heavy coronary artery calcifications. Mild dilation of the left atrium. Mitral annular calcifications. Atrial valve calcifications. Moderate aortoiliac calcific atherosclerotic disease. Heavy calcifications of the celiac origin, splenic artery branches separate origin of the left gastric artery from the aorta. 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 Hysterectomy changes. Bibasilar mild dependent atelectasis and scarring. Severe osteoporosis. Partially evaluated right femoral neck screw and interlocking proximal femoral intramedullary nail. The femoral neck screw component extending through the greater trochanter is proud. There is a bony irregularity there is a proximal femur inferior to the right greater trochanter, series 10 image 322 and series 12 image 139. There is partial lumbarization of L5. Grade 1 anterolisthesis of L3 on L4 is seen. Multilevel bridging syndesmophytes and osteophytes are present. There is severe lower lumbar spine facet arthrosis. IMPRESSION: 1. Very limited examination due to patient motion and streak artifact. 2. Findings which can be seen with developing stercoral colitis. 3. Findings of concurrent colonic constipation and gastroenteritis. 4. Questionable proximal right femoral fracture in the setting of postsurgical changes. 5. Nonspecific very mild central intrahepatic biliary dilation. 6. Indeterminate 1.0 cm left adrenal nodule. Routine outpatient CT versus MR adrenal protocol is available for further characterization as clinically indicated. 7. Colonic diverticulosis without CT findings for diverticulitis. 8. Severe vasculopathic changes. 9. Hepatic steatosis.
[2024-05-23 15:40] LABS: Lactic Acid, 3 HR 1.1 mMol/L (0.4-2.0)
[2024-05-23] MEDS: ONDANSETRON INJ 2 MG/ML INJ 2 ML 4 MG IV (15:41)
[2024-05-23] MEDS: METOCLOPRAMIDE INJ 5 MG/ML VIAL 2 ML 10 MG IVP (15:46)
[2024-05-23] MEDS: MORPHINE SULF INJ 10 MG/ML VIAL 4 MG IVP (15:49)
[2024-05-23] MEDS: Aspirin 325 MG TABLET PO (15:49)
--- NOTE | 2024-05-23 16:37 | PC.NURSE ---
RN attempted to call Cinthia to get CT questionare, no answer, went directly to voicemail.
--- NOTE | 2024-05-23 21:08 | ESHP_ITS ---
<Statement entered by Yaya Rhoades MD - 05/24/24 04:30> 74-year-old female with multiple comorbidities including hypertension, hyperlipidemia, type 2 diabetes mellitus with subsequent cerebrovascular accident who presented to the ER with complaints of generalized weakness found to have enterocolitis and elevated troponin. Furthermore, patient's troponin up trended from 0.149-0.04 however no chest pain and EKG with no ischemic changes. As a result, plan to observe the patient, IV antibiotic and monitor troponins.I reviewed above note and agree with findings and plans. I have also personally examined the patient with medicine team and went over assessment and plan with medical team including college intern and resident physician. Documentation for date of: 05/23/24 HPI History of Present Illness History of present illness: HPI is limited as pt is poor historian, most of history obtained via chart review and stepdaughter Giovana is a 74 y/o female with PMHx CVA (2x, most recent was 1.5 year ago), hypertension, vfb-lanqiot-[id number] type 2 diabetes mellitus who comes in for an evaluation of generalized weakness, and poor oral intake. Stepdaughter endorses that patient has been having poor oral intake for some time and has been worsening. She is able to drink her Ensure protein shakes however she refuses food and sometimes meds. She does appear to be in pain sometimes and agitated. She says that she has been on hospice for 3 years. She also has been refusing to take some medicines including aspirin and Plavix because she has trouble swallowing. She endorses that the patient has lost 15 pounds within the past 6 months. She denies that the patient has fallen. She denies any chest pain, shortness of breath. She did say that the patient of vomiting that was nonbloody, and had a couple episodes of diarrhea as well. She states that the patient is bedbound and usually wears diapers. No other complaints at this time. ED Course: She arrived to the ED with a temperature of 99.9, heart rate of 108, blood pressure 139/84, respiratory rate 16, oxygen saturations of 96% on room air. She was worked up was found to have a sodium of 131, potassium 4.5, BUN/creatinine 29 and 1.2 respectively, bicarb 26, glucose 146, white count 11.9, hemoglobin 13.1. Lactate was found to be 2.1, magnesium 1.5, troponin 0.149. Urinalysis showed leukocyte esterase, pyuria and some bacteria. CT abdomen pelvis showed some colonic constipation, gastroenteritis, possible right sided femoral fracture which may be related to previous operation, 1 cm left adrenal nodule. CT head showed right frontal scalp hematoma, no hemorrhage, mass effect or midline shift. She was given Zofran x 1, Reglan 10 mg x 1, aspirin 325, Rocephin x 1, 1 L normal saline bolus, morphine 4 mg x 1. Medicine was consulted and patient was admitted to observation PMHx: HTN, CVA, and DM Surgical Hx: R hip fracture repair Allergies: No known allergies Meds: Aspirin, Plavix, pending med rec Family Hx: Family history significant for hypertension and diabetes Social Hx: Lives with her step-daughter in law, used to smokes cigs 1 pack every two days for several years, no oral drug or IV Review of Systems Review of Systems Narrative Review of Systems: ROS unable to be obtained as patient is poor historian Exam Vital Signs Temp Pulse Resp BP Pulse Ox O2 Del Method 98.8 F 90 18 132/63 H 96 Room Air 05/23/24 20:00 05/23/24 20:00 05/23/24 20:00 05/23/24 20:00 05/23/24 20:00 05/23/24 20:00 Narrative Exam General: AAOx2, NAD, weak, frail, elderly woman, little musculature, blue hair HEENT: Dry mucous membranes, conjunctiva clear, EOMI, PERRLA, Cardiovascular: S1, S2, radial pulses +2 bilat, RRR Pulmonary: CTAB bilat no cough, no wheezing GI: No tenderness to light or deep palpitation, no guarding, rigidity, rebound tenderness or distension Extremities: No presence of trace or pitting edema in lower extremities bilaterally, dorsalis pedis pulses +2 bilaterally, lower musculature on lower extremities Neuro: AAOx2, bedbound Psych: Somewhat cooperative Results: Labs 05/23/24 11:33 05/23/24 11:33 Labs: Short CBC 05/23/24 Range/Units 11:33 WBC 11.9 H (3.6-11.0) Thou/mm3 Hgb 13.1 (12.0-16.0) g/dL Hct 40.2 (36.0-46.0) % Plt Count 419 D (140-440) Thou/mm3 BMP 05/23/24 11:33 Sodium 139 Potassium 4.5 Chloride 100 Carbon Dioxide 26.0 BUN 29 H Creatinine 1.2 Glucose 146 H Calcium 10.0 Cardiac Enzymes 05/23/24 05/23/24 05/23/24 Range/Units 11:33 13:50 18:19 Troponin I 0.149 H* 0.314 H* 0.480 H* (0.0-0.045) ng/mL Liver Function 05/23/24 Range/Units 11:33 Total Bilirubin 0.5 (0.3-1.2) mg/dL AST 22 (0-34) U/L ALT 8 L (10-49) U/L Alkaline Phosphatase 74 (46-116) U/L Albumin 4.0 (3.4-4.8) gm/dL Urine 05/23/24 Range/Units 13:16 Urine Color Yellow (Lt Yel-Yel) Urine Clarity Clear (Clear/Hazy) Urine pH 5.5 (5.0-7.0) Ur Specific Dunlap 1.023 (1.001-1.035) Urine Protein 2+ A (Neg - Trace) Urine Glucose (UA) Negative (Negative) Quality Measures Quality Measures none Advance care planning discussed with:: patient and other (stepdaughter) Medications Home Medications and Allergies Allergies Allergy/AdvReac Type Severity Reaction Status Date / Time No Known Allergies Allergy Verified 04/08/24 21:34 Visit Medications Magnesium Sulfate (Magnesium Sulfate Ivpb) 2 gm in 50 mls @ 25 mls/hr IV X1 ONE Stop: 05/23/24 22:19 Discontinued Medications Aspirin (Aspirin 325 Mg Tablet) 325 mg PO X1 ONE Stop: 05/23/24 15:18 Last Admin: 05/23/24 15:49 Dose: 325 mg Ceftriaxone Sodium 1,000 mg/ (Sodium Chloride) 50 mls @ 100 mls/hr IV X1 ONE Stop: 05/23/24 11:52 Last Infusion: 05/23/24 12:34 Dose: Infused Sodium Chloride (Ns) 1,000 mls @ 999 mls/hr IV .Q1H1M ONE Stop: 05/23/24 12:24 Last Infusion: 05/23/24 13:40 Dose: Infused Sodium Chloride (Ns) 1,000 mls @ 999 mls/hr IV .Q1H1M ONE Stop: 05/23/24 16:35 Last Infusion: 05/23/24 18:13 Dose: Infused Metoclopramide HCl (Metoclopramide Inj 5 Mg/Ml Vial 2 Ml) 10 mg IVP X1 ONE; Protocol Stop: 05/23/24 15:29 Last Admin: 05/23/24 15:46 Dose: 10 mg Morphine Sulfate (Morphine Sulf Inj 10 Mg/Ml Vial) 4 mg IVP X1 ONE Stop: 05/23/24 15:29 Last Admin: 05/23/24 15:49 Dose: 4 mg Ondansetron HCl (Ondansetron Inj 2 Mg/Ml Inj 2 Ml) 4 mg IV X1 ONE; Protocol Stop: 05/23/24 15:29 Last Admin: 05/23/24 15:41 Dose: 4 mg Assessment & Plan Plan Assessment Giovana is a 74 y/o female with PMHx CVA (2x, most recent was 1.5 year ago), hypertension, res-uheqpih-suesjjgbm type 2 diabetes mellitus who is admitted in observation for enterocolitis and elevated troponins. #Enterocolitis #Vomiting #Diarrhea #Failure to thrive Patient does not meet sepsis criteria at this time Patient has been on hospice for about [address] scan appears to show some enterocolitis and patient is accompanied by diarrhea and vomiting Failure to thrive and poor oral intake also can be worsened by enterocolitis We will continue with abx and symptomatic treatment Plan: ? Ciprofloxacin 400 mg IV twice daily ? Flagyl 500 mg IV every 8 hours ? Encourage oral intake ? Antiemetics ? Pain control ? Antipyretics including Tylenol including Zofran ? Follow-up urine culture ? Follow-up blood cultures #Elevated troponins .149 -> .314 Patient not experiencing chest pain at this time likely related to demand ischemia, however will continue to trend Plan: ? Trend troponin every 6 hours #History of hypertension #History of CVA Plan: ? Consider resuming home blood pressure medicines once med rec is finished ? Resumed home aspirin and Plavix #Ilj-ixjjrhh-ldoasqyqk type II diabetes mellitus Plan: ? Sliding scale insulin ? Hypoglycemic protocol in place ? Blood sugar checks with meals #History of left adrenal nodule 1 cm, seen on CT abdomen pelvis Patient unlikely to have any intervention at this point considering patient is hospice Plan: ? Consider outpatient follow-up #Health Maintenance Disposition: Observation?telemetry DVT prophylaxis: Heparin every 12 hours GI prophylaxis: Protonix Diet: Pending swallow eval CODE STATUS: Full Patient seen and care discussed with my attending physician, Dr. Jf Mariscal, PGY-1
[2024-05-23] MEDS: Magnesium Sulfate 2 GM Ivpb 2 GM/50 ML BAG IV (22:12)
[2024-05-24] VITALS (7 sets, daily range): BP systolic 111–153; BP diastolic 49–80; PULSE 67–93; RESP 12–20; TEMP 36.2–36.8; O2SAT 95–100; BMI 22.9
[2024-05-24] MEDS: HEPARIN SOD INJ 5000 UNIT/ML VIAL SC ×3 (00:13→21:23)
[2024-05-24] MEDS: metroNIDAZOLE/NS 500 MG IVPB 500 MG/100 ML BAG 200 MG IV ×2 (00:13→05:00)
[2024-05-24] MEDS: CIPROFLOXACIN/D5w 400 MG IVPB 400 MG/200 ML BAG 200 MG IV ×2 (00:42→10:01)
[2024-05-24 02:07] LABS: Troponin I 0.387 ng/mL (0.0-0.045)
[2024-05-24 06:28] LABS: Basophils % (Auto) 0 % (0-2.5); Eosinophils # (Auto) 0.1 Thou/mm3 (0.0-0.5); Eosinophils % (Auto) 1 % (0-10); Hematocrit 32.5 % (36.0-46.0); Hemoglobin 10.5 g/dL (12.0-16.0); Immature Granulocytes % (Auto) 0 % (0-0); Immature Granulocytes Auto 0.04 Thou/mm3 (0.00-0.00); Lymphocytes # (Auto) 2.9 Thou/mm3 (1.0-4.8); Lymphocytes % (Auto) 29 % (10-50); Mean Corpuscular HGB Conc 32.3 g/dl (31.0-37.0); Mean Corpuscular Hemoglobin 28.2 pg (25.0-35.0); Mean Corpuscular Volume 87 fL (80-100); Monocytes # (Auto) 0.7 Thou/mm3 (0.0-0.8); Monocytes % (Auto) 7 % (0-12); Neutrophils # (Auto) 6.2 Thou/mm3 (1.8-7.7); Neutrophils % (Auto) 62 % (37-80); Nucleated Red Blood Cell % 0 /100 WBC (0); Platelet Count 282 Thou/mm3 (140-440); RDW Standard Deviation 48.7 fL (36.4-46.3); Red Blood Count 3.72 Miln/mm3 (4.00-5.20); White Blood Count 10.1 Thou/mm3 (3.6-11.0)
[2024-05-24 06:40] LABS: Partial Thromboplastin Time 28.5 Seconds (22.0-36.0); Prothrombin Time 11.4 Seconds (9.0-12.2)
[2024-05-24 06:46] LABS: Glucose Estimated Average 91 mg/dL (80-131); Hemoglobin A1C 4.8 % Hgb (4.8-6.0)
[2024-05-24 07:11] LABS: Alanine Aminotransferase < 7 U/L (10-49); Albumin, Serum 3.2 gm/dL (3.4-4.8); Alkaline Phosphatase 54 U/L (46-116); Anion Gap 10 (7-16); Aspartate Amino Transferase 21 U/L (0-34); BUN/Creatinine Ratio 23 Ratio (12-20); Bilirubin,Total 0.4 mg/dL (0.3-1.2); Blood Urea Nitrogen 21 mg/dL (9-23); Calcium 8.6 mg/dL (8.3-10.6); Calcium (Corrected) 9.2 mg/dL (8.5-10.1); Carbon Dioxide 28.6 mMol/L (20.0-31.0); Chloride 101 mMol/L (98-107); Creatinine (Component) 0.9 mg/dL (0.6-1.3); Estimated Creatinine Clearance 50.8 mL/min (>60); Globulin 3.2 gm/dL (2.3-3.5); Glucose 72 mg/dL (74-106); Magnesium 1.8 mg/dL (1.6-2.6); Osmolality,Calculated 281 (275-295); Phosphorous 2.6 mg/dL (2.4-5.1); Potassium 3.6 mMol/L (3.4-5.1); Sodium 140 mMol/L (136-145); Total Protein 6.4 gm/dL (5.7-8.2); eGFR > 60 See Note
--- NOTE | 2024-05-24 09:47 | PCS.ST ---
Swallowing evaluation completed. Consideration for PEG, however, pt is under hospice care. If po: recommending puree food consistency (dysphagia 1) and pudding thick liquids. See report for details.
[2024-05-24] MEDS: PANTOPRAZOLE INJ 40 MG VIAL IVP (10:00)
--- NOTE | 2024-05-24 11:53 | PC.SS ---
Initial assessment: patient is a 74 year old female. Lives at home with daughter in law Cinthia and kids. Cinthia assisted with providing information. Cinthia confirmed the home address. Cinthia designed as emergency contact for the patient. Cinthia states the patient requires assistance with ADL's. Patient has been WC bound. Patient is aligned with [facility] for a couple years now. Patient is followed by physician aligned through [facility]. PerCinthia the patient has continued to decline and recent was prescribed with Depakote from her doctor. Cinthia informs the d/c plan is for the patient to return home and continue with [facility]. D/c plan: home Next of kin: Cinthia,
[2024-05-24] MEDS: RINGERS LACTATED 1000 ML 1,000 ML 75 ML IV (12:58)
[2024-05-24] MEDS: ONDANSETRON INJ 2 MG/ML INJ 2 ML 4 MG IV (13:21)
--- NOTE | 2024-05-24 14:06 | XR_ITS ---
Examination:Right hip AP, lateral, AP pelvis 3 views Technique: Hip AP lateral, AP pelvis, 3 views Exam date and time:May 24, 2024 at 1323 hrs. Indications: Onset right hip pain today. Findings: Severe osteopenia. 0 right hip fracture Mild to moderate bilateral hip osteoarthritis. Bones of the pelvis intact Impression: Mild to moderate bilateral hip osteoarthritis.
--- NOTE | 2024-05-24 14:25 | ESPR_ITS ---
<Statement entered by Penelope Last MD - 05/25/24 06:13> Patient was seen and examined by me personally. I have directly supervised and reviewed documentation by the team resident and agree with its findings with any exceptions or additional findings as below. Plan of care was discussed with the attending, Dr. Sen. Overnight admission. Patient is admitted to observation for NSTEMI, elevated troponin, which has now peaked, likely type 2. She also has enterocolitis for which she is receiving IV ciprofloxacin and metronidazole. Patient has failure to thrive with poor oral intake and speech evaluation determined that the patient can not safely pass swallow. Since she was hospice, they suggested that patient can start dysphagia diet if the family accepts the risks. At this time patient remains full code, but family will continue to consider. They were leaning toward not having PEG tube placed and continuation of hospice. Diet was resumed. Penelope Last, PGY-2 Documentation for date of: 05/24/24 Subjective Subjective Interval history: Patient was seen and examined by the bedside. No acute overnight events. Speech eval recommended PEG tube placement due to dysphagia, talked to the Seth Vicente, patient's meat cutter apprentice. She reported that the patient is bedridden and has been having poor oral intake. She said that she will discuss with the patient's son regarding PEG tube placement but will try to start her on puree diet for now. Ordered a hip x-ray in 4 views. Exam Vital Signs Temp Pulse Resp BP Pulse Ox O2 Del Method 98.3 F 67 20 138/62 H 99 Room Air 05/24/24 12:00 05/24/24 12:05/24/24 12:05/24/24 12:00 05/24/24 12:05/24/24 12:00 Narrative Exam Physical Exam General: Awake and in no acute distress. HEENT: Normocephalic, atraumatic, mucous membranes moist. Heart: Regular rate and rhythm, no murmurs. Lungs: Clear to auscultation with no wheezing or crackles. Abdomen: Soft, nondistended, nontender, positive bowel sounds. ?No guarding or rebound tenderness. Neurologic: Alert and oriented x1 (not in time and place), right sided hemiparesis, right sided facial droop. Does not fully follow commands. Extremities: No edema. Sacral and right hip pressure ulcer. Skin: No rash or ecchymoses. Objective Labs 05/25/24 04:48 05/25/24 04:48 Labs: Laboratory Results - last 24 hr 05/23/24 05/23/24 05/23/24 11:33 13:50 15:35 WBC RBC Hgb Hct MCV MCH MCHC RDW Std Deviation Plt Count Neut % (Auto) Lymph % (Auto) Noble % (Auto) Eos % (Auto) Baso % (Auto) Neut # (Auto) Lymph # (Auto) Noble # (Auto) Eos # (Auto) Baso # (Auto) Immature Gran # (Auto) Absolute Nucleated RBC Immature Gran % Nucleated RBC % PT INR APTT Sodium Potassium Chloride Carbon Dioxide Anion Gap BUN Creatinine Estim Creat Clear Calc eGFR BUN/Creatinine Ratio Glucose Estimated Ave Glu mg/dL Hemoglobin A1c Calculated Osmolality Lactic Acid 1.1 Calcium Corrected Calcium Phosphorus Magnesium Total Bilirubin AST ALT Alkaline Phosphatase Lactate Dehydrogenase 265 H Troponin I 0.314 H* Total Protein Albumin Globulin Albumin/Globulin Ratio 05/23/24 05/24/24 05/24/24 18:19 01:00 05:04 WBC 10.1 RBC 3.72 L Hgb 10.5 L D Hct 32.5 L MCV 87 MCH 28.2 MCHC 32.3 RDW Std Deviation 48.7 H Plt Count 282 D Neut % (Auto) 62 Lymph % (Auto) 29 Noble % (Auto) 7 Eos % (Auto) 1 Baso % (Auto) 0 Neut # (Auto) 6.2 Lymph # (Auto) 2.9 Noble # (Auto) 0.7 Eos # (Auto) 0.1 Baso # (Auto) 0.0 Immature Gran # (Auto) 0.04 H Absolute Nucleated RBC 0.00 Immature Gran % 0 Nucleated RBC % 0 PT 11.4 INR 1.0 APTT 28.5 Sodium 140 Potassium 3.6 D Chloride 101 Carbon Dioxide 28.6 Anion Gap 10 BUN 21 Creatinine 0.9 Estim Creat Clear Calc 50.8 L eGFR > 60 BUN/Creatinine Ratio 23 H Glucose [address] Glu mg/dL 91 Hemoglobin A1c 4.8 Calculated Osmolality 281 Lactic Acid Calcium 8.6 Corrected Calcium 9.2 Phosphorus 2.6 Magnesium 1.8 Total Bilirubin 0.4 AST 21 ALT < 7 L Alkaline Phosphatase 54 D Lactate Dehydrogenase Troponin I 0.480 H* 0.387 H* Total Protein 6.4 Albumin 3.2 L D Globulin 3.2 Albumin/Globulin Ratio 1.0 L Quality Measures Quality Measures VTE prophylaxis Advance care planning discussed with:: other Assessment & Plan Assessment Current Active Medications: Generic Name Dose Route Start Last Admin Trade Name Freq PRN Reason Stop Dose Admin Acetaminophen 650 mg 05/23/24 22:19 Acetaminophen 325 Mg Tablet PO 06/22/24 22:18 Q6H PRN Fever >100 or pain 1-3 Aspirin 81 mg 05/24/24 09:00 05/24/24 10:12 Aspirin Ec 81 Mg Tabec PO 06/23/24 08:59 Not Given QDAY MARYSE Clopidogrel Bisulfate 75 mg 05/24/24 09:00 05/24/24 10:12 Clopidogrel Bisulfate 75 Mg Tablet PO 06/23/24 08:59 Not Given QDAY MARYSE Dextrose 25 ml 05/24/24 03:56 Dextrose 50%-Water Inj 50 Ml Syringe IV 06/23/24 03:55 Q15MIN PRN BG 50-70 responsive npo pt Dextrose 50 ml 05/24/24 03:56 Dextrose 50%-Water Inj 50 Ml Syringe IV 06/23/24 03:55 Q15MIN PRN BG <50 OR BG <70 & pt unresponsive Glucagon 1 mg 05/24/24 03:56 Glucagon Inj 1 Mg Vial IM Q15MIN PRN BG <70, and no IV access Heparin Sodium (Porcine) 5,000 unit 05/23/24 22:30 05/24/24 10:00 Heparin Sod Inj 5000 Unit/Ml Vial SC 06/06/24 22:29 5,000 unit Q12HR MARYSE Administration Ciprofloxacin/Dextrose 400 mg in 200 mls @ 200 mls/hr 05/25/24 09:00 Cipro Ivpb IV 06/01/24 08:59 Q12HR MARYSE Metronidazole 500 mg in 100 mls @ 200 mls/hr 05/25/24 09:00 Flagyl 500 Mg Iv IV 06/01/24 08:59 Q8HR MARYSE Lactated Ringer's 1,000 mls @ 75 mls/hr 05/24/24 10:24 05/24/24 12:58 Lactated Ringers IV 06/29/24 10:23 75 mls/hr .[id number] MARYSE Administration Dextrose 1,000 mls @ 75 mls/hr 05/24/24 14:15 D5w IV 06/23/24 14:14 .[id number] [facility] Insulin Human Lispro 0 unit 05/24/24 06:00 05/24/24 13:07 Insulin Lispro (Admelog) 1 Unit/0.01 Ml Unit SC 06/23/24 05:59 Not Given Q6HR [facility] Protocol Ondansetron HCl 4 mg 05/24/24 13:10 05/24/24 13:21 Ondansetron Inj 2 Mg/Ml Inj 2 Ml IV 06/23/24 13:09 4 mg Q6HR PRN Administration NAUSEA OR VOMITING Protocol Pantoprazole Sodium 40 mg 05/24/24 09:00 05/24/24 10:00 Pantoprazole Inj 40 Mg Vial IVP 06/23/24 08:59 40 mg QDAY MARYSE Administration Plan The patient is a 74 year old female with previous medical history of #Enterocolitis #Vomiting #Diarrhea #Failure to thrive Patient does not meet sepsis criteria at this time Patient has been on hospice for about [address] scan appears to show some enterocolitis and patient is accompanied by diarrhea and vomiting Failure to thrive and poor oral intake also can be worsened by enterocolitis We will continue with abx and symptomatic treatment Plan: ? Ciprofloxacin 400 mg IV twice daily ? Flagyl 500 mg IV every 8 hours ? Antiemetics ? Pain control ? Antipyretics including Tylenol including Zofran ? Follow-up urine culture ? Follow-up blood cultures #Elevated troponins .149 -> .314 Patient not experiencing chest pain at this time likely related to demand ischemia, however will continue to trend Plan: ? Troponins peaked and downtrended, will discontinue trending #History of hypertension #History of CVA Plan: ? Consider resuming home blood pressure medicines once med rec is finished ? Resumed home aspirin and Plavix #[id number] type II diabetes mellitus Plan: ? Sliding scale insulin ? Hypoglycemic protocol in place ? Blood sugar checks with meals #History of left adrenal nodule - accidental finding 1 cm, seen on CT abdomen pelvis Patient unlikely to have any intervention at this point considering patient is hospice. Plan: ? Consider outpatient follow-up #Health Maintenance Disposition: Observation?telemetry DVT prophylaxis: Heparin every 12 hours GI prophylaxis: Protonix Diet: Puree dysphagia 1 CODE STATUS: Full Plan of care discussed with attending Dr. Sen, PGY-[address] Last. Jolly Storm MD, PGY 1. Attending Provider Attestation/Addendum I reviewed labs, imaging, EKG, home medications and prior available records. Face to face evaluation was performed by me. I have personally examined the patient and discussed assessment and plan with the IM team. I reviewed the resident note and agree with the plan with exceptions as below. Failure to thrive in adult Gastroenteritis Hypoglycemia Non-STEMI, likely type II from dehydration and acute illness History of CVA Goals of care discussion/counseling Patient developed a new complication of hypoglycemia on 05/24. Start D5W. Monitor fingersticks Discussed with speech therapy: May start dysphagia diet if she is going to hospice Monitor electrolytes and replete as needed Continue ciprofloxacin/Flagyl Discussed goals of care with family: Agreed to continue current plan to go to hospice however she is still full code Start Plavix and atorvastatin once able to take p.o. Troponin peaked
--- NOTE | 2024-05-24 14:35 | PC.PT ---
Patient is referred for PT evaluation. Upon chart review, patient is under hospice services. Skilled PT is not indicated at this time. Will cancel PT evaluation.
--- NOTE | 2024-05-24 15:03 | ESCONSULT_ITS ---
<Statement entered by Ryley Núñez MD - 05/28/24 12:32> I personally examined the patient evaluated with PGY 2 evaluate the patient for elevated troponin levels no clinical history suggesting myocardial infarction type II troponin elevation no need to treat at myocardial infarction. Patient clinically stable not complain of any chest pain or shortness of breath agree with treatment plan recommendation all essential components of the note are reviewed by me personally agree with the treatment plan will review cardiac echo findings. HPI Data of Consult Requesting Physician: Rafael Sen MD Admitting Provider: Yaya Rhoades MD Attending Provider: Rafael Sen MD Primary Care Provider: Physician No Primary/Family Consult Narrative History of present illness: The patient is a 74-year-old female past medical history including hypertension, type 2 diabetes mellitus, hyperlipidemia, history of CVA on aspirin and Plavix who came to the ER complaining of denies weakness, admitted to the medical floor with a diagnosis of enterocolitis and type II IN. The patient is alert, but speech is mostly incomprehensible, likely motor aphasia, limited H&P provided by patient, most of the information gathered from chart review. The patient was brought into the ER complaining of poor oral intake, vomiting and diarrhea. Associated weight loss over the past 6 months, the patient's denies active chest pain or shortness of breath, is currently saturating well on room air. In no acute distress at the time of evaluation. Past medical history: Hypertension, CVA, hyperlipidemia, diabetes mellitus Surgical history: Hip repair surgery NKDA Home medications: Aspirin and Plavix Family history: Family history of hypertension diabetes cc:: cc: Rafael Sen MD Review of Systems Review of Systems Systems Reviewed: All systems reviewed, normal except as documented Past Medical History Past Medical History NEUROLOGIC: Positive Cerebrovascular Accident CARDIAC: Positive Cardiac Disorders and Hypertension; Negative Congestive Heart Failure RESPIRATORY: Negative Chronic Obstructive Pulmonary Disease (COPD) or Asthma GENITOURINARY: Negative Renal Disease ENDOCRINE: Negative Diabetes Mellitus Type 1 or Diabetes Mellitus Type 2 HEMATOLOGIC: Negative Sickle Cell Disease Social History SMOKING STATUS: Never smoker SUBSTANCE USE: does not use Exam Vital Signs Temp Pulse Resp BP Pulse Ox O2 Del Method 98.3 F 67 20 138/62 H 99 Room Air 05/24/24 12:00 05/24/24 12:05/24/24 12:05/24/24 12:00 05/24/24 12:00 05/24/24 12:00 Narrative Exam General: the patient is alert and able to answer simple questions with yes no head movements, but speech is impaired . NAD, weak, frail, elderly woman, little musculature, blue hair Skin: Intact, no cyanosis or edema noted. HEENT: Atraumatic/normocephalic, TOSHA, neck supple Heart: RRR, S1 and S2 without clicks or murmurs Lungs: Clear on auscultation bilaterally, no difficulty breathing Abdomen: Soft, nontender. Bowel sounds present . Vascular: Peripheral pulses palpable Neuro: Speech is impaired, possible motor aphasia . Bedbound status, some movement against gravity bilateral lower limbs, unable to move right upper extremity. Right-sided facial droop. Results Labs 05/25/24 04:48 05/25/24 04:48 Labs: Short CBC 05/24/24 Range/Units 05:04 WBC 10.1 (3.6-11.0) Thou/mm3 Hgb 10.5 L D (12.0-16.0) g/dL Hct 32.5 L (36.0-46.0) % Plt Count 282 D (140-440) Thou/mm3 BMP 05/24/24 05:04 Sodium 140 Potassium 3.6 D Chloride 101 Carbon Dioxide 28.6 BUN 21 Creatinine 0.9 Glucose 72 L D Calcium 8.6 Cardiac Enzymes 05/23/24 05/23/24 05/24/24 Range/Units 13:50 18:19 01:00 Troponin I 0.314 H* 0.480 H* 0.387 H* (0.0-0.045) ng/mL Liver Function 05/24/24 Range/Units 05:04 Total Bilirubin 0.4 (0.3-1.2) mg/dL AST 21 (0-34) U/L ALT < 7 L (10-49) U/L Alkaline Phosphatase 54 D (46-116) U/L Albumin 3.2 L D (3.4-4.8) gm/dL Quality Measures Quality Measures none Advance care planning discussed with:: patient Medications Home Medications and Allergies Allergies Allergy/AdvReac Type Severity Reaction Status Date / Time No Known Allergies Allergy Verified 04/08/24 21:34 Visit Medications Acetaminophen (Acetaminophen 325 Mg Tablet) 650 mg PO Q6H PRN PRN Reason: Fever >100 or pain 1-3 Stop: 06/22/24 22:18 Aspirin (Aspirin Ec 81 Mg Tabec) 81 mg PO QDAY [facility] Stop: 06/23/24 08:59 Last Admin: 05/24/24 10:12 Dose: Not Given Clopidogrel Bisulfate (Clopidogrel Bisulfate 75 Mg Tablet) 75 mg PO QDAY [facility] Stop: 06/23/24 08:59 Last Admin: 05/24/24 10:12 Dose: Not Given Dextrose (Dextrose 50%-Water Inj 50 Ml Syringe) 25 ml IV Q15MIN PRN PRN Reason: BG 50-70 responsive npo pt Stop: 06/23/24 03:55 Dextrose (Dextrose 50%-Water Inj 50 Ml Syringe) 50 ml IV Q15MIN PRN PRN Reason: BG <50 OR BG <70 & pt unresponsive Stop: 06/23/24 03:55 Glucagon (Glucagon Inj 1 Mg Vial) 1 mg IM Q15MIN PRN PRN Reason: BG <70, and no IV access Heparin Sodium (Porcine) (Heparin Sod Inj 5000 Unit/Ml Vial) 5,000 unit SC Q12HR [facility] Stop: 06/06/24 22:29 Last Admin: 05/24/24 10:00 Dose: 5,000 unit Ciprofloxacin/Dextrose (Cipro Ivpb) 400 mg in 200 mls @ 200 mls/hr IV Q12HR [facility] Stop: 06/01/24 08:59 Metronidazole (Flagyl 500 Mg Iv) 500 mg in 100 mls @ 200 mls/hr IV Q8HR [facility] Stop: 06/01/24 08:59 Lactated Ringer's (Lactated Ringers) 1,000 mls @ 75 mls/hr IV .[id number] [facility] Stop: 06/29/24 10:23 Last Admin: 05/24/24 12:58 Dose: 75 mls/hr Dextrose (D5w) 1,000 mls @ 75 mls/hr IV .[id number] [facility] Stop: 06/23/24 14:14 Insulin Human Lispro (Insulin Lispro (Admelog) 1 Unit/0.01 Ml Unit) 0 unit SC Q6HR [facility]; Protocol Stop: 06/23/24 05:59 Last Admin: 05/24/24 13:07 Dose: Not Given Ondansetron HCl (Ondansetron Inj 2 Mg/Ml Inj 2 Ml) 4 mg IV Q6HR PRN; Protocol PRN Reason: NAUSEA OR VOMITING Stop: 06/23/24 13:09 Last Admin: 05/24/24 13:21 Dose: 4 mg Pantoprazole Sodium (Pantoprazole Inj 40 Mg Vial) 40 mg IVP QDAY MARYSE Stop: 06/23/24 08:59 Last Admin: 05/24/24 10:00 Dose: 40 mg Discontinued Medications Aspirin (Aspirin 325 Mg Tablet) 325 mg PO X1 ONE Stop: 05/23/24 15:18 Last Admin: 05/23/24 15:49 Dose: 325 mg Ceftriaxone Sodium 1,000 mg/ (Sodium Chloride) 50 mls @ 100 mls/hr IV X1 ONE Stop: 05/23/24 11:52 Last Infusion: 05/23/24 12:34 Dose: Infused Sodium Chloride (Ns) 1,000 mls @ 999 mls/hr IV .Q1H1M ONE Stop: 05/23/24 12:24 Last Infusion: 05/23/24 13:40 Dose: Infused Sodium Chloride (Ns) 1,000 mls @ 999 mls/hr IV .Q1H1M ONE Stop: 05/23/24 16:35 Last Infusion: 05/23/24 18:13 Dose: Infused Magnesium Sulfate (Magnesium Sulfate Ivpb) 2 gm in 50 mls @ 25 mls/hr IV X1 ONE Stop: 05/23/24 22:19 Last Admin: 05/23/24 22:12 Dose: 25 mls/hr Metronidazole (Flagyl 500 Mg Iv) 500 mg in 100 mls @ 200 mls/hr IV Q8HR MARYSE Stop: 05/30/24 22:23 Last Admin: 05/24/24 05:00 Dose: 200 mls/hr Ciprofloxacin/Dextrose (Cipro Ivpb) 400 mg in 200 mls @ 200 mls/hr IV Q12HR MARYSE Stop: 05/30/24 22:24 Last Admin: 05/24/24 10:01 Dose: 200 mls/hr Insulin Human Lispro (Insulin Lispro (Admelog) 1 Unit/0.01 Ml Unit) 0 unit SC AC MARYSE; Protocol Stop: 06/23/24 07:29 Metoclopramide HCl (Metoclopramide Inj 5 Mg/Ml Vial 2 Ml) 10 mg IVP X1 ONE; Protocol Stop: 05/23/24 15:29 Last Admin: 05/23/24 15:46 Dose: 10 mg Morphine Sulfate (Morphine Sulf Inj 10 Mg/Ml Vial) 4 mg IVP X1 ONE Stop: 05/23/24 15:29 Last Admin: 05/23/24 15:49 Dose: 4 mg Ondansetron HCl (Ondansetron Inj 2 Mg/Ml Inj 2 Ml) 4 mg IV X1 ONE; Protocol Stop: 05/23/24 15:29 Last Admin: 05/23/24 15:41 Dose: 4 mg Assessment & Plan Plan The patient is a 74-year-old female past medical history including hypertension, type 2 diabetes mellitus, hyperlipidemia, history of CVA on aspirin and Plavix who came to the ER complaining of denies weakness, admitted to the medical floor with a diagnosis of enterocolitis and type II IN. The patient is alert, but speech is mostly incomprehensible, likely motor aphasia, limited H&P provided by patient, most of the information gathered from chart review. The patient was brought into the ER complaining of poor oral intake, vomiting and diarrhea. Associated weight loss over the past 6 months, the patient's denies active chest pain or shortness of breath, is currently saturating well on room air. In no acute distress at the time of evaluation. #Type II IN Cardiac consult was placed for elevated troponins, troponins peaked at 0.4 now downtrending, patient denies any active chest pain, is in no acute distress at the moment, no history of diaphoresis, chest discomfort or heaviness or shortness of breath, orthopnea. EKG shows right bundle branch block and sinus tachycardia. No acute ST-T changes noted. ?Likely type II IN in the setting of enterocolitis. ?Continue aspirin and Plavix ?Will order echocardiogram as no prior echocardiogram on file #Enterocolitis #History of diabetes mellitus #History of hypertension #History of CVA ?Management per primary team Plan of care discussed with shear grinder operator Dr. Es Cat, PGy 2
--- NOTE | 2024-05-24 15:04 | PC.SS ---
Rounding note: pending GOC discussion for possible PEG tube placement.
[2024-05-24] MEDS: DEXTROSE 5%-WATER 1,000 ML 75 ML IV (18:09)
[2024-05-24] MEDS: ACETAMINOPHEN 325 MG TABLET 650 MG PO (23:42)
[2024-05-25] VITALS: BP 144/74; PULSE 78; PULSE 79; RESP 12; TEMP 36.3; O2SAT 97
[2024-05-25] MEDS: MELATONIN 3 MG TABLET 6 MG PO (00:45)
[2024-05-25] MEDS: HALOPERIDOL LACT INJ 5 MG/ML VIAL 2.5 MG IV (02:06)
[2024-05-25 04:00] VITALS: BP 145/67; PULSE 101; PULSE 89; RESP 10; TEMP 36.1; O2SAT 96
[2024-05-25] MEDS: DEXTROSE 5%-WATER 1,000 ML 75 ML IV ×3 (04:48→20:52)
[2024-05-25 05:46] VITALS: BMI 22.5
[2024-05-25 06:10] LABS: Basophils % (Auto) 1 % (0-2.5); Eosinophils # (Auto) 0.2 Thou/mm3 (0.0-0.5); Eosinophils % (Auto) 3 % (0-10); Hematocrit 34.1 % (36.0-46.0); Hemoglobin 11.6 g/dL (12.0-16.0); Immature Granulocytes % (Auto) 1 % (0-0); Immature Granulocytes Auto 0.04 Thou/mm3 (0.00-0.00); Lymphocytes # (Auto) 3.2 Thou/mm3 (1.0-4.8); Lymphocytes % (Auto) 40 % (10-50); Mean Corpuscular Volume 85 fL (80-100); Monocytes # (Auto) 0.5 Thou/mm3 (0.0-0.8); Monocytes % (Auto) 7 % (0-12); Neutrophils % (Auto) 50 % (37-80); Nucleated Red Blood Cell % 0 /100 WBC (0); Platelet Count 346 Thou/mm3 (140-440); RDW Standard Deviation 45.7 fL (36.4-46.3)
[2024-05-25 06:46] LABS: Alanine Aminotransferase < 7 U/L (10-49); Albumin, Serum 3.4 gm/dL (3.4-4.8); Alkaline Phosphatase 57 U/L (46-116); Anion Gap 11 (7-16); Aspartate Amino Transferase 24 U/L (0-34); BUN/Creatinine Ratio 15 Ratio (12-20); Bilirubin,Total 0.4 mg/dL (0.3-1.2); Blood Urea Nitrogen 12 mg/dL (9-23); Calcium 8.7 mg/dL (8.3-10.6); Calcium (Corrected) 9.2 mg/dL (8.5-10.1); Carbon Dioxide 29.2 mMol/L (20.0-31.0); Chloride 98 mMol/L (98-107); Creatinine (Component) 0.8 mg/dL (0.6-1.3); Estimated Creatinine Clearance 57.2 mL/min (>60); Globulin 3.4 gm/dL (2.3-3.5); Glucose 85 mg/dL (74-106); Osmolality,Calculated 274 (275-295); Sodium 138 mMol/L (136-145); Total Protein 6.8 gm/dL (5.7-8.2); eGFR > 60 See Note
[2024-05-25 06:48] LABS: Potassium 2.7 mMol/L (3.4-5.1)
[2024-05-25 08:00] VITALS: BP 128/65; PULSE 74; PULSE 76; RESP 18; TEMP 36.1; O2SAT 98
[2024-05-25] MEDS: DEXTROSE 50%-WATER INJ 50 ML SYRINGE 25 ML IV (08:33)
[2024-05-25] MEDS: PANTOPRAZOLE INJ 40 MG VIAL IVP (08:34)
[2024-05-25] MEDS: HEPARIN SOD INJ 5000 UNIT/ML VIAL SC ×2 (08:34→20:53)
[2024-05-25] MEDS: ASPIRIN EC 81 MG TABEC PO (08:35)
[2024-05-25] MEDS: POTASSIUM CHLORIDE 10% 20 MEQ/15 ML UDC 40 MEQ PO (08:35)
[2024-05-25] MEDS: CLOPIDOGREL BISULFATE 75 MG TABLET PO (08:35)
[2024-05-25] MEDS: CIPROFLOXACIN/D5w 400 MG IVPB 400 MG/200 ML BAG 200 MG IV ×2 (08:35→20:56)
[2024-05-25] MEDS: metroNIDAZOLE/NS 500 MG IVPB 500 MG/100 ML BAG 200 MG IV ×2 (08:52→22:37)
[2024-05-25 12:00] VITALS: BP 142/64; PULSE 77; PULSE 87; RESP 16; TEMP 36.1; O2SAT 99
--- NOTE | 2024-05-25 12:06 | ESPR_ITS ---
<Statement entered by Ryley Núñez MD - 05/28/24 12:33> The patient continues to do fairly well no cardiac symptoms no chest pain shortness reviewed the findings and examined the patient with PGY 2 agree with the treatment plan recommendation appears to be noncardiac troponin elevation type II troponin no need for further cardiac workup Documentation for date of: 05/25/24 Subjective Subjective Interval history: Patient is evaluated bedside, asymptomatic reports no symptoms, is disappointed that she cannot eat a lot. Saturating well on room air, vital stable. Primary team plans to discharge the patient back on hospice. Exam Vital Signs Temp Pulse Resp BP Pulse Ox O2 Del Method 97.0 F 74 18 128/65 98 Room Air 05/25/24 08:00 05/25/24 08:00 05/25/24 08:00 05/25/24 08:00 05/25/24 08:00 05/25/24 08:00 Narrative Exam General: the patient is alert and able to answer simple questions with yes no head movements, but speech is impaired . NAD, weak, frail, elderly woman, little musculature, blue hair Skin: Intact, no cyanosis or edema noted. HEENT: Atraumatic/normocephalic, TOSHA, neck supple Heart: RRR, S1 and S2 without clicks or murmurs Lungs: Clear on auscultation bilaterally, no difficulty breathing Abdomen: Soft, nontender. Bowel sounds present . Vascular: Peripheral pulses palpable Neuro: Speech is impaired, possible motor aphasia . Bedbound status, some movement against gravity bilateral lower limbs, unable to move right upper extremity. Right-sided facial droop. Objective Labs 05/25/24 04:48 05/25/24 04:48 Labs: Laboratory Results - last 24 hr 05/25/24 04:48 WBC 8.0 RBC 4.00 Hgb 11.6 L Hct 34.1 L MCV 85 MCH 29.0 MCHC 34.0 RDW Std Deviation 45.7 Plt Count 346 D Neut % (Auto) 50 Lymph % (Auto) 40 [place] % (Auto) 7 Eos % (Auto) 3 Baso % (Auto) 1 Neut # (Auto) 4.0 Lymph # (Auto) 3.2 Ness # (Auto) 0.5 Eos # (Auto) 0.2 Baso # (Auto) 0.0 Immature Gran # (Auto) 0.04 H Absolute Nucleated RBC 0.00 Immature Gran % 1 H Nucleated RBC % 0 Sodium 138 Potassium 2.7 L* D Chloride 98 Carbon Dioxide 29.2 Anion Gap 11 BUN 12 Creatinine 0.8 Estim Creat Clear Calc 57.2 L eGFR > 60 BUN/Creatinine Ratio 15 Glucose 85 Calculated Osmolality 274 L Calcium 8.7 Corrected Calcium 9.2 Total Bilirubin 0.4 AST 24 ALT < 7 L Alkaline Phosphatase 57 Total Protein 6.8 Albumin 3.4 Globulin 3.4 Albumin/Globulin Ratio 1.0 L Quality Measures Quality Measures VTE prophylaxis Advance care planning discussed with:: patient Assessment & Plan Assessment Current Active Medications: Generic Name Dose Route Start Last Admin Trade Name Freq PRN Reason Stop Dose Admin Acetaminophen 650 mg 05/23/24 22:19 05/24/24 23:42 Acetaminophen 325 Mg Tablet PO 06/22/24 22:18 650 mg Q6H PRN Administration Fever >100 or pain 1-3 Aspirin 81 mg 05/24/24 09:00 05/25/24 08:35 Aspirin Ec 81 Mg Tabec PO 06/23/24 08:59 81 mg QDAY MARYSE Administration Clopidogrel Bisulfate 75 mg 05/24/24 09:00 05/25/24 08:35 Clopidogrel Bisulfate 75 Mg Tablet PO 06/23/24 08:59 75 mg QDAY MARYSE Administration Collagenase 0 gm 05/24/24 21:00 05/24/24 21:26 Collagenase Oint 30 Gm Tube TOP 06/23/24 20:59 Not Given HS MARYSE Dextrose 50 ml 05/24/24 03:56 Dextrose 50%-Water Inj 50 Ml Syringe IV 06/23/24 03:55 Q15MIN PRN BG <50 OR BG <70 & pt unresponsive Dextrose 25 ml 05/25/24 08:30 Dextrose 50%-Water Inj 50 Ml Syringe IV 06/23/24 03:55 Q15MIN PRN BG 50-70 responsive Glucagon 1 mg 05/24/24 03:56 Glucagon Inj 1 Mg Vial IM Q15MIN PRN BG <70, and no IV access Heparin Sodium (Porcine) 5,000 unit 05/23/24 22:30 05/25/24 08:34 Heparin Sod Inj 5000 Unit/Ml Vial SC 06/06/24 22:29 5,000 unit Q12HR MARYSE Administration Ciprofloxacin/Dextrose 400 mg in 200 mls @ 200 mls/hr 05/25/24 09:00 05/25/24 11:49 Cipro Ivpb IV 06/01/24 08:59 Infused Q12HR MARYSE Infusion Metronidazole 500 mg in 100 mls @ 200 mls/hr 05/25/24 09:00 05/25/24 11:49 Flagyl 500 Mg Iv IV 06/01/24 08:59 Infused Q8HR MARYSE Infusion Dextrose 1,000 mls @ 75 mls/hr 05/25/24 08:30 05/25/24 08:36 D5w IV 06/24/24 08:29 75 mls/hr .[id number] MARYSE Administration Potassium Chloride 10 meq in 100 mls @ 100 mls/hr 05/25/24 10:18 Kcl Ivpb IV 05/25/24 14:17 Q1H MARYSE Insulin Human Lispro 0 unit 05/24/24 06:00 05/25/24 05:13 Insulin Lispro (Admelog) 1 Unit/0.01 Ml Unit SC 06/23/24 05:59 Not Given Q6HR MARYSE Protocol Ondansetron HCl 4 mg 05/24/24 13:10 05/24/24 13:21 Ondansetron Inj 2 Mg/Ml Inj 2 Ml IV 06/23/24 13:09 4 mg Q6HR PRN Administration NAUSEA OR VOMITING Protocol Pantoprazole Sodium 40 mg 05/24/24 09:00 05/25/24 08:34 Pantoprazole Inj 40 Mg Vial IVP 06/23/24 08:59 40 mg QDAY MARYSE Administration Plan The patient is a 74-year-old female past medical history including hypertension, type 2 diabetes mellitus, hyperlipidemia, history of CVA on aspirin and Plavix who came to the ER complaining of denies weakness, admitted to the medical floor with a diagnosis of enterocolitis and type II IA. The patient is alert, but speech is mostly incomprehensible, likely motor aphasia, limited H&P provided by patient, most of the information gathered from chart review. The patient was brought into the ER complaining of poor oral intake, vomiting and diarrhea. Associated weight loss over the past 6 months, the patient's denies active chest pain or shortness of breath, is currently saturating well on room air. In no acute distress at the time of evaluation. #Type II IA Cardiac consult was placed for elevated troponins, troponins peaked at 0.4 now downtrending, patient denies any active chest pain, is in no acute distress at the moment, no history of diaphoresis, chest discomfort or heaviness or shortness of breath, orthopnea. EKG shows right bundle branch block and sinus tachycardia. No acute ST-T changes noted. ?Likely type II IA in the setting of enterocolitis. ?Continue aspirin and Plavix ?Will order echocardiogram as no prior echocardiogram on file ?Primary team plans to discharge the patient back on hospice. #Enterocolitis #History of diabetes mellitus #History of hypertension #History of CVA ?Management per primary team Plan of care discussed with escalation engineer Dr. Es Cat, PGy 2
[2024-05-25] MEDS: POTASSIUM CHL 10 mEq IVPB 10 MEQ/100 ML BAG 100 MEQ IV (12:44)
--- NOTE | 2024-05-25 12:57 | ESPR_ITS ---
Documentation for date of: 05/25/24 Subjective Subjective Interval history: Patient was seen and examined by the bedside. No acute overnight events. Patient appears to be confused, does not have insight into the timeline of her strokes, continues to have poor oral intake. She is on D5W maintenance fluid. Tried to call patient's point of contact, Cinthia, no answer. If the patient continues to have poor oral intake in the setting of dysphagia and cognitive defecit, she would require a PEG tube placement. Had a conversation with Cinthia yesterday, she said that she would discuss it with patient's son. Exam Vital Signs Temp Pulse Resp BP Pulse Ox O2 Del Method 97.0 F 74 18 128/65 98 Room Air 05/25/24 08:00 05/25/24 08:00 05/25/24 08:00 05/25/24 08:00 05/25/24 08:00 05/25/24 08:00 Narrative Exam Physical Exam General: Awake and in no acute distress. Blue hair. HEENT: Normocephalic, atraumatic, mucous membranes moist. Heart: Regular rate and rhythm, no murmurs. Lungs: Clear to auscultation with no wheezing or crackles. Abdomen: Soft, nondistended, nontender, positive bowel sounds. ?No guarding or rebound tenderness. Neurologic: Alert and oriented x1 (not in time and place), right sided hemiparesis, right sided facial droop. Does not fully follow commands. Extremities: No edema. Sacral and right hip pressure ulcer. Skin: No rash or ecchymoses. Objective Labs 05/26/24 04:36 05/26/24 04:36 Labs: Laboratory Results - last 24 hr 05/25/24 04:48 WBC 8.0 RBC 4.00 Hgb 11.6 L Hct 34.1 L MCV 85 MCH 29.0 MCHC 34.0 RDW Std Deviation 45.7 Plt Count 346 D Neut % (Auto) 50 Lymph % (Auto) 40 [place] % (Auto) 7 Eos % (Auto) 3 Baso % (Auto) 1 Neut # (Auto) 4.0 Lymph # (Auto) 3.2 [place] # (Auto) 0.5 Eos # (Auto) 0.2 Baso # (Auto) 0.0 Immature Gran # (Auto) 0.04 H Absolute Nucleated RBC 0.00 Immature Gran % 1 H Nucleated RBC % 0 Sodium 138 Potassium 2.7 L* D Chloride 98 Carbon Dioxide 29.2 Anion Gap 11 BUN 12 Creatinine 0.8 Estim Creat Clear Calc 57.2 L eGFR > 60 BUN/Creatinine Ratio 15 Glucose 85 Calculated Osmolality 274 L Calcium 8.7 Corrected Calcium 9.2 Total Bilirubin 0.4 AST 24 ALT < 7 L Alkaline Phosphatase 57 Total Protein 6.8 Albumin 3.4 Globulin 3.4 Albumin/Globulin Ratio 1.0 L Quality Measures Quality Measures VTE prophylaxis Advance care planning discussed with:: other Assessment & Plan Assessment Current Active Medications: Generic Name Dose Route Start Last Admin Trade Name Freq PRN Reason Stop Dose Admin Acetaminophen 650 mg 05/23/24 22:19 05/24/24 23:42 Acetaminophen 325 Mg Tablet PO 06/22/24 22:18 650 mg Q6H PRN Administration Fever >100 or pain 1-3 Aspirin 81 mg 05/24/24 09:00 05/25/24 08:35 Aspirin Ec 81 Mg Tabec PO 06/23/24 08:59 81 mg QDAY MARYSE Administration Clopidogrel Bisulfate 75 mg 05/24/24 09:00 05/25/24 08:35 Clopidogrel Bisulfate 75 Mg Tablet PO 06/23/24 08:59 75 mg QDAY MARYSE Administration Collagenase 0 gm 05/24/24 21:00 05/24/24 21:26 Collagenase Oint 30 Gm Tube TOP 06/23/24 20:59 Not Given HS MARYSE Dextrose 50 ml 05/24/24 03:56 Dextrose 50%-Water Inj 50 Ml Syringe IV 06/23/24 03:55 Q15MIN PRN BG <50 OR BG <70 & pt unresponsive Dextrose 25 ml 05/25/24 08:30 Dextrose 50%-Water Inj 50 Ml Syringe IV 06/23/24 03:55 Q15MIN PRN BG 50-70 responsive Glucagon 1 mg 05/24/24 03:56 Glucagon Inj 1 Mg Vial IM Q15MIN PRN BG <70, and no IV access Heparin Sodium (Porcine) 5,000 unit 05/23/24 22:30 05/25/24 08:34 Heparin Sod Inj 5000 Unit/Ml Vial SC 06/06/24 22:29 5,000 unit Q12HR MARYSE Administration Ciprofloxacin/Dextrose 400 mg in 200 mls @ 200 mls/hr 05/25/24 09:00 05/25/24 11:49 Cipro Ivpb IV 06/01/24 08:59 Infused Q12HR MARYSE Infusion Metronidazole 500 mg in 100 mls @ 200 mls/hr 05/25/24 09:00 05/25/24 11:49 Flagyl 500 Mg Iv IV 06/01/24 08:59 Infused Q8HR MARYSE Infusion Dextrose 1,000 mls @ 75 mls/hr 05/25/24 08:30 05/25/24 08:36 D5w IV 06/24/24 08:29 75 mls/hr .[id number] MARYSE Administration Potassium Chloride 10 meq in 100 mls @ 100 mls/hr 05/25/24 10:18 05/25/24 12:44 Kcl Ivpb IV 05/25/24 14:17 100 mls/hr Q1H MARYSE Administration Insulin Human Lispro 0 unit 05/24/24 06:00 05/25/24 12:21 Insulin Lispro (Admelog) 1 Unit/0.01 Ml Unit SC 06/23/24 05:59 Not Given Q6HR MARYSE Protocol Ondansetron HCl 4 mg 05/24/24 13:10 05/24/24 13:21 Ondansetron Inj 2 Mg/Ml Inj 2 Ml IV 06/23/24 13:09 4 mg Q6HR PRN Administration NAUSEA OR VOMITING Protocol Pantoprazole Sodium 40 mg 05/24/24 09:00 05/25/24 08:34 Pantoprazole Inj 40 Mg Vial IVP 06/23/24 08:59 40 mg QDAY MARYSE Administration Plan The patient is a 74 year old female with previous medical history of s/p CVA, hypertension, type 2 diabetes who was admitted due to weakness and poor oral intake. #Failure to thrive #Dysphagia #Status post CVA #Cognitive deficit Failure to thrive and poor oral intake also can be worsened by enterocolitis Patient is on hospice at home. Speech eval recommended PEG tube placement or, if a patient on hospice, puree diet. Plan: - will continue to reach out to the decision maker regarding goal of care - D5W at 75 ml/hr - continue with puree diet #Enterocolitis, improving #Vomiting, resolved #Diarrhea, improving Patient does not meet sepsis criteria at this time Patient has been on hospice for about [address] scan appears to show some enterocolitis and patient is accompanied by diarrhea and vomiting We will continue with abx and symptomatic treatment Plan: ? Ciprofloxacin 400 mg IV twice daily ? Flagyl 500 mg IV every 8 hours ? Antiemetics ? Pain control ? Antipyretics including Tylenol including Zofran ? Urine culture pending ? Blood cultures are negative #Elevated troponins .149 -> .314 Patient not experiencing chest pain at this time likely related to demand ischemia, however will continue to trend Plan: ? Troponins peaked and downtrended, will discontinue trending #History of hypertension #History of CVA Plan: ? Consider resuming home blood pressure medicines once med rec is finished ? home aspirin and Plavix #[id number] type II diabetes mellitus Plan: ? Sliding scale insulin ? Hypoglycemic protocol in place ? Blood sugar checks with meals #History of left adrenal nodule - accidental finding 1 cm, seen on CT abdomen pelvis Patient unlikely to have any intervention at this point considering patient is hospice. Plan: ? Consider outpatient follow-up #Health Maintenance Disposition: Observation?telemetry DVT prophylaxis: Heparin every 12 hours GI prophylaxis: Protonix Diet: Puree dysphagia 1 CODE STATUS: Full Plan of care discussed with attending Dr. Sen, PGY-[address] Barajas. Jolly Storm MD, PGY 1. --- ATTESTATION: I saw and examined the patient this morning, and I agree with current management stated by the resident. Will continue to monitor patient during their stay. Disclaimer: Despite multiple revisions, due to the dictation software being used, the document bellow may not be free of grammatical errors including phonetic/typographic errors. However, this does not deter from our commitment to providing health care in the patient's best interest in mind. Dr. Ryley Barajas, PGY-3 Attending Provider Attestation/Addendum I reviewed labs, imaging, EKG, home medications and prior available records. Face to face evaluation was performed by me. I have personally examined the patient and discussed assessment and plan with the IM team. I reviewed the resident note and agree with the plan with exceptions as below. Failure to thrive in adult Gastroenteritis Hypoglycemia Non-STEMI, likely type II from dehydration and acute illness History of CVA Goals of care discussion/counseling Glucose level improved. Continue D5W. Monitor fingersticks Discussed with speech therapy: Started pur?ed diet. Patient does not want to eat because the hospital food is not tasting Monitor electrolytes and replete as needed Continue ciprofloxacin/Flagyl Discussed goals of care with family: Agreed to continue current plan to go to hospice however she is still full code Start Plavix and atorvastatin Troponin peaked
[2024-05-25] MEDS: POTASSIUM CHL 10 mEq IVPB 10 MEQ/100 ML BAG 50 MEQ IV ×3 (15:08→20:24)
[2024-05-25 16:00] VITALS: BP 155/86; PULSE 80; PULSE 87; RESP 17; TEMP 36.2; O2SAT 99
[2024-05-25 16:11] VITALS: BMI 22.6
[2024-05-25 20:00] VITALS: BP 137/70; PULSE 84; PULSE 85; RESP 19; TEMP 36.5; O2SAT 98
[2024-05-25] MEDS: COLLAGENASE OINT 30 GM TUBE TOP (21:32)
[2024-05-26] VITALS (8 sets, daily range): BP systolic 129–159; BP diastolic 63–88; PULSE 78–105; RESP 13–20; TEMP 36.1–37.6; O2SAT 96–99; BMI 22.7
[2024-05-26] MEDS: MELATONIN 3 MG TABLET PO ×2 (00:39→22:23)
[2024-05-26] MEDS: ONDANSETRON INJ 2 MG/ML INJ 2 ML 4 MG IV ×3 (01:54→21:16)
[2024-05-26] MEDS: metroNIDAZOLE/NS 500 MG IVPB 500 MG/100 ML BAG 200 MG IV ×3 (05:31→21:37)
[2024-05-26 05:33] LABS: Basophils % (Auto) 0 % (0-2.5); Eosinophils % (Auto) 0 % (0-10); Hematocrit 33.3 % (36.0-46.0); Hemoglobin 11.3 g/dL (12.0-16.0); Immature Granulocytes % (Auto) 1 % (0-0); Immature Granulocytes Auto 0.05 Thou/mm3 (0.00-0.00); Lymphocytes # (Auto) 1.4 Thou/mm3 (1.0-4.8); Lymphocytes % (Auto) 20 % (10-50); Mean Corpuscular HGB Conc 33.9 g/dl (31.0-37.0); Mean Corpuscular Volume 85 fL (80-100); Monocytes # (Auto) 0.5 Thou/mm3 (0.0-0.8); Monocytes % (Auto) 7 % (0-12); Neutrophils # (Auto) 4.9 Thou/mm3 (1.8-7.7); Neutrophils % (Auto) 72 % (37-80); Nucleated Red Blood Cell % 0 /100 WBC (0); Platelet Count 397 Thou/mm3 (140-440); RDW Standard Deviation 45.8 fL (36.4-46.3); White Blood Count 6.8 Thou/mm3 (3.6-11.0)
--- NOTE | 2024-05-26 06:00 | PC.NURSE ---
vomited yellowish fluid moderate amount.
[2024-05-26 06:20] LABS: Alanine Aminotransferase < 7 U/L (10-49); Albumin, Serum 3.4 gm/dL (3.4-4.8); Albumin/Globulin Ratio 1.1 (1.2-2.2); Alkaline Phosphatase 53 U/L (46-116); Anion Gap 10 (7-16); Aspartate Amino Transferase 20 U/L (0-34); BUN/Creatinine Ratio 9 Ratio (12-20); Bilirubin,Total 0.3 mg/dL (0.3-1.2); Blood Urea Nitrogen 7 mg/dL (9-23); Calcium 8.6 mg/dL (8.3-10.6); Calcium (Corrected) 9.1 mg/dL (8.5-10.1); Carbon Dioxide 26.5 mMol/L (20.0-31.0); Chloride 100 mMol/L (98-107); Creatinine (Component) 0.8 mg/dL (0.6-1.3); Estimated Creatinine Clearance 54.9 mL/min (>60); Globulin 3.2 gm/dL (2.3-3.5); Glucose 147 mg/dL (74-106); Osmolality,Calculated 272 (275-295); Potassium 3.4 mMol/L (3.4-5.1); Sodium 136 mMol/L (136-145); Total Protein 6.6 gm/dL (5.7-8.2); eGFR > 60 See Note
[2024-05-26] MEDS: CIPROFLOXACIN/D5w 400 MG IVPB 400 MG/200 ML BAG 200 MG IV ×2 (08:05→20:30)
[2024-05-26] MEDS: CLOPIDOGREL BISULFATE 75 MG TABLET PO (08:06)
[2024-05-26] MEDS: ASPIRIN EC 81 MG TABEC PO (08:06)
[2024-05-26] MEDS: PANTOPRAZOLE INJ 40 MG VIAL IVP (08:06)
[2024-05-26] MEDS: HEPARIN SOD INJ 5000 UNIT/ML VIAL SC ×2 (08:07→20:31)
--- NOTE | 2024-05-26 10:03 | ESPR_ITS ---
<Statement entered by Ryley Núñez MD - 05/28/24 12:33> I personally evaluated the patient along with resident physician PGY 2 patient does not have any cardiac symptoms patient with type II troponin elevation has been on aspirin Plavix because of neurologic symptoms in the past but no cardiac issues okay to discharge per loans officer Documentation for date of: 05/26/24 Subjective Subjective Interval history: Overnight events, lab/imaging results, and notes reviewed. Patient examined bedside, denies any medical complaints, does not have any chest pains. Reports feeling well, although difficulty with speech is noted. Troponin levels noted to downtrend, patient remains on aspirin and plavix. Echo has been ordered, not yet taken. Exam Vital Signs Temp Pulse Resp BP Pulse Ox O2 Del Method 97.2 F 78 18 140/67 H 97 Room Air 05/26/24 08:00 05/26/24 08:00 05/26/24 08:00 05/26/24 08:00 05/26/24 08:00 05/26/24 08:00 Narrative Exam General: AOx2, cooperative, in no acute distress HEENT: Atraumatic/normocephalic, TOSHA, neck supple Heart: RRR, S1 and S2 without clicks or murmurs Lungs: Clear on auscultation bilaterally, no difficulty breathing Abdomen: Soft, nontender. Bowel sounds present on all quadrants Skin: Intact, no cyanosis or edema noted Objective Labs 05/26/24 04:36 05/26/24 04:36 Labs: Laboratory Results - last 24 hr 05/26/24 04:36 WBC 6.8 RBC 3.90 L Hgb 11.3 L Hct 33.3 L MCV 85 MCH 29.0 MCHC 33.9 RDW Std Deviation 45.8 Plt Count 397 D Neut % (Auto) 72 Lymph % (Auto) 20 [place] % (Auto) 7 Eos % (Auto) 0 Baso % (Auto) 0 Neut # (Auto) 4.9 Lymph # (Auto) 1.4 [place] # (Auto) 0.5 Eos # (Auto) 0.0 Baso # (Auto) 0.0 Immature Gran # (Auto) 0.05 H Absolute Nucleated RBC 0.00 Immature Gran % 1 H Nucleated RBC % 0 Sodium 136 Potassium 3.4 D Chloride 100 Carbon Dioxide 26.5 Anion Gap 10 BUN 7 L Creatinine 0.8 Estim Creat Clear Calc 54.9 L eGFR > 60 BUN/Creatinine Ratio 9 L Glucose 147 H D Calculated Osmolality 272 L Calcium 8.6 Corrected Calcium 9.1 Total Bilirubin 0.3 AST 20 ALT < 7 L Alkaline Phosphatase 53 Total Protein 6.6 Albumin 3.4 Globulin 3.2 Albumin/Globulin Ratio 1.1 L Quality Measures Quality Measures VTE prophylaxis Advance care planning discussed with:: patient Assessment & Plan Assessment Current Active Medications: Generic Name Dose Route Start Last Admin Trade Name Freq PRN Reason Stop Dose Admin Acetaminophen 650 mg 05/23/24 22:19 05/24/24 23:42 Acetaminophen 325 Mg Tablet PO 06/22/24 22:18 650 mg Q6H PRN Administration Fever >100 or pain 1-3 Aspirin 81 mg 05/24/24 09:00 05/26/24 08:06 Aspirin Ec 81 Mg Tabec PO 06/23/24 08:59 81 mg QDAY MARYSE Administration Clopidogrel Bisulfate 75 mg 05/24/24 09:00 05/26/24 08:06 Clopidogrel Bisulfate 75 Mg Tablet PO 06/23/24 08:59 75 mg QDAY MARYSE Administration Collagenase 0 gm 05/24/24 21:00 05/25/24 21:32 Collagenase Oint 30 Gm Tube TOP 06/23/24 20:59 1 applicatio HS MARYSE Administration Dextrose 50 ml 05/24/24 03:56 Dextrose 50%-Water Inj 50 Ml Syringe IV 06/23/24 03:55 Q15MIN PRN BG <50 OR BG <70 & pt unresponsive Dextrose 25 ml 05/25/24 08:30 Dextrose 50%-Water Inj 50 Ml Syringe IV 06/23/24 03:55 Q15MIN PRN BG 50-70 responsive Glucagon 1 mg 05/24/24 03:56 Glucagon Inj 1 Mg Vial IM Q15MIN PRN BG <70, and no IV access Heparin Sodium (Porcine) 5,000 unit 05/23/24 22:30 05/26/24 08:07 Heparin Sod Inj 5000 Unit/Ml Vial SC 06/06/24 22:29 5,000 unit Q12HR MARYSE Administration Ciprofloxacin/Dextrose 400 mg in 200 mls @ 200 mls/hr 05/25/24 09:00 05/26/24 08:05 Cipro Ivpb IV 06/01/24 08:59 200 mls/hr Q12HR MARYSE Administration Metronidazole 500 mg in 100 mls @ 200 mls/hr 05/25/24 09:00 05/26/24 05:31 Flagyl 500 Mg Iv IV 06/01/24 08:59 200 mls/hr Q8HR MARYSE Administration Dextrose 1,000 mls @ 75 mls/hr 05/25/24 08:30 05/25/24 20:52 D5w IV 06/24/24 08:29 75 mls/hr .[id number] MARYSE Administration Insulin Human Lispro 0 unit 05/24/24 06:00 05/26/24 05:46 Insulin Lispro (Admelog) 1 Unit/0.01 Ml Unit SC 06/23/24 05:59 Not Given Q6HR MARYSE Protocol Melatonin 3 mg 05/25/24 17:20 05/26/24 00:39 Melatonin 3 Mg Tablet PO 06/24/24 20:59 3 mg HS PRN Administration Insomnia Ondansetron HCl 4 mg 05/24/24 13:10 05/26/24 01:54 Ondansetron Inj 2 Mg/Ml Inj 2 Ml IV 06/23/24 13:09 4 mg Q6HR PRN Administration NAUSEA OR VOMITING Protocol Pantoprazole Sodium 40 mg 05/24/24 09:00 05/26/24 08:06 Pantoprazole Inj 40 Mg Vial IVP 06/23/24 08:59 40 mg QDAY MARYSE Administration Plan Patient is a 74-year-old female past medical history including hypertension, type 2 diabetes mellitus, hyperlipidemia, history of CVA on aspirin and Plavix who came to the ER complaining of denies weakness, admitted to the medical floor with a diagnosis of enterocolitis and type II AL. The patient is alert, but speech is mostly incomprehensible, likely motor aphasia, limited H&P provided by patient, most of the information gathered from chart review. The patient was brought into the ER complaining of poor oral intake, vomiting and diarrhea. Associated weight loss over the past 6 months, the patient's denies active chest pain or shortness of breath, is currently saturating well on room air. In no acute distress at the time of evaluation. #Type II AL Cardiac consult was placed for elevated troponins, troponins peaked at 0.480 now downtrending, patient denies any active chest pain, is in no acute distress at the moment, no history of diaphoresis, chest discomfort or heaviness or shortness of breath, orthopnea. EKG shows right bundle branch block and sinus tachycardia. No acute ST-T changes noted. ?Likely type II AL in the setting of enterocolitis. ?Continue aspirin and Plavix ?Echo ordered, not yet taken ?Discharging planning per primary team #Enterocolitis #History of diabetes mellitus #History of hypertension #History of CVA ?Management per primary team Patient case discussed with attending physician Dr. Wilton Lu, DO PGY-3
--- NOTE | 2024-05-26 12:03 | PC.SS ---
SS contacted patient's daughter in law Cinthia Ann [phone] to confirm if she is available for [facility] meeting with hospitalist team. Cinthia stated she was aware a PEG tube was being recommended. However, Cinthia fears she cannot provide care for patient with a PEG tube. Cinthia stated she has young children to care for and unable to meet patient's needs. Dr. Last informed.
[2024-05-26] MEDS: DEXTROSE 5%-WATER 1,000 ML 75 ML IV (12:27)
[2024-05-26] MEDS: ACETAMINOPHEN 325 MG TABLET 650 MG PO ×2 (15:39→22:22)
--- NOTE | 2024-05-26 15:41 | ESPR_ITS ---
<Statement entered by Penelope Last MD - 05/27/24 07:10> Patient was seen and examined by me personally. I have directly supervised and reviewed documentation by the team resident and agree with its findings with any exceptions or additional findings as below. Plan of care was discussed with the attending, Dr. Sen. Patient is stable, no new events, attempted to reach out to Cinthia [id number] and patient's decision-maker at 2 separate phone numbers multiple times throughout the day but was unable to reach her regarding recommendation for PEG tube. Patient is otherwise ready for discharge. Penelope Last, PGY-2 Documentation for date of: 05/26/24 Subjective Subjective Interval history: Patient was seen and examined by the bedside. No acute overnight events. Patient denies abdominal pain. AOx2. On puree diet, low meal intake. Tried to contact Cinthia Ann, decision maker from 2 different numbers, was not able to leave a voice message due to full voice mail storage, tried to send SMS notification. Modesto Vicente, next of kin, was also unreachable via phone. Exam Vital Signs Temp Pulse Resp BP Pulse Ox O2 Del Method 97.6 F 83 16 129/63 97 Room Air 05/26/24 12:00 05/26/24 12:00 05/26/24 12:00 05/26/24 12:00 05/26/24 12:00 05/26/24 12:00 Narrative Exam Physical Exam General: Awake and in no acute distress. Blue hair. HEENT: Normocephalic, atraumatic, mucous membranes moist. Heart: Regular rate and rhythm, no murmurs. Lungs: Clear to auscultation with no wheezing or crackles. Abdomen: Soft, nondistended, nontender, positive bowel sounds. ?No guarding or rebound tenderness. Neurologic: Alert and oriented x2 (not in place), right sided hemiparesis, right sided facial droop. Does not fully follow commands. Extremities: No edema. Sacral and right hip pressure ulcer. Skin: No rash or ecchymoses. Objective Labs 05/27/24 04:48 05/27/24 04:48 Labs: Laboratory Results - last 24 hr 05/26/24 04:36 WBC 6.8 RBC 3.90 L Hgb 11.3 L Hct 33.3 L MCV 85 MCH 29.0 MCHC 33.9 RDW Std Deviation 45.8 Plt Count 397 D Neut % (Auto) 72 Lymph % (Auto) 20 [place] % (Auto) 7 Eos % (Auto) 0 Baso % (Auto) 0 Neut # (Auto) 4.9 Lymph # (Auto) 1.4 [place] # (Auto) 0.5 Eos # (Auto) 0.0 Baso # (Auto) 0.0 Immature Gran # (Auto) 0.05 H Absolute Nucleated RBC 0.00 Immature Gran % 1 H Nucleated RBC % 0 Sodium 136 Potassium 3.4 D Chloride 100 Carbon Dioxide 26.5 Anion Gap 10 BUN 7 L Creatinine 0.8 Estim Creat Clear Calc 54.9 L eGFR > 60 BUN/Creatinine Ratio 9 L Glucose 147 H D Calculated Osmolality 272 L Calcium 8.6 Corrected Calcium 9.1 Total Bilirubin 0.3 AST 20 ALT < 7 L Alkaline Phosphatase 53 Total Protein 6.6 Albumin 3.4 Globulin 3.2 Albumin/Globulin Ratio 1.1 L Quality Measures Quality Measures VTE prophylaxis Advance care planning discussed with:: other Assessment & Plan Assessment Current Active Medications: Generic Name Dose Route Start Last Admin Trade Name Freq PRN Reason Stop Dose Admin Acetaminophen 650 mg 05/23/24 22:19 05/26/24 15:39 Acetaminophen 325 Mg Tablet PO 06/22/24 22:18 650 mg Q6H PRN Administration Fever >100 or pain 1-3 Aspirin 81 mg 05/24/24 09:00 05/26/24 08:06 Aspirin Ec 81 Mg Tabec PO 06/23/24 08:59 81 mg QDAY MARYSE Administration Clopidogrel Bisulfate 75 mg 05/24/24 09:00 05/26/24 08:06 Clopidogrel Bisulfate 75 Mg Tablet PO 06/23/24 08:59 75 mg QDAY MARYSE Administration Collagenase 0 gm 05/24/24 21:00 05/25/24 21:32 Collagenase Oint 30 Gm Tube TOP 06/23/24 20:59 1 applicatio HS MARYSE Administration Dextrose 50 ml 05/24/24 03:56 Dextrose 50%-Water Inj 50 Ml Syringe IV 06/23/24 03:55 Q15MIN PRN BG <50 OR BG <70 & pt unresponsive Dextrose 25 ml 05/25/24 08:30 Dextrose 50%-Water Inj 50 Ml Syringe IV 06/23/24 03:55 Q15MIN PRN BG 50-70 responsive Glucagon 1 mg 03/14/25 03:56 Glucagon Inj 1 Mg Vial IM Q15MIN PRN BG <70, and no IV access Heparin Sodium (Porcine) 5,000 unit 05/23/24 22:30 05/26/24 08:07 Heparin Sod Inj 5000 Unit/Ml Vial SC 06/06/24 22:29 5,000 unit Q12HR MARYSE Administration Ciprofloxacin/Dextrose 400 mg in 200 mls @ 200 mls/hr 05/25/24 09:00 05/26/24 08:05 Cipro Ivpb IV 06/01/24 08:59 200 mls/hr Q12HR MARYSE Administration Metronidazole 500 mg in 100 mls @ 200 mls/hr 05/25/24 09:00 05/26/24 14:07 Flagyl 500 Mg Iv IV 06/01/24 08:59 200 mls/hr Q8HR MARYSE Administration Dextrose 1,000 mls @ 75 mls/hr 05/25/24 08:30 05/26/24 12:27 D5w IV 06/24/24 08:29 75 mls/hr .[id number] MARYSE Administration Insulin Human Lispro 0 unit 05/24/24 06:00 05/26/24 12:27 Insulin Lispro (Admelog) 1 Unit/0.01 Ml Unit SC 06/23/24 05:59 Not Given Q6HR MARYSE Protocol Melatonin 3 mg 05/25/24 17:20 05/26/24 00:39 Melatonin 3 Mg Tablet PO 06/24/24 20:59 3 mg HS PRN Administration Insomnia Ondansetron HCl 4 mg 05/24/24 13:10 05/26/24 12:27 Ondansetron Inj 2 Mg/Ml Inj 2 Ml IV 06/23/24 13:09 4 mg Q6HR PRN Administration NAUSEA OR VOMITING Protocol Pantoprazole Sodium 40 mg 05/24/24 09:00 05/26/24 08:06 Pantoprazole Inj 40 Mg Vial IVP 06/23/24 08:59 40 mg QDAY MARYSE Administration Plan The patient is a 74 year old female with previous medical history of s/p CVA, hypertension, type 2 diabetes who was admitted due to weakness and poor oral intake. #Failure to thrive #Dysphagia #Status post CVA #Cognitive deficit Failure to thrive and poor oral intake also can be worsened by enterocolitis Patient is on hospice at home. Speech eval recommended PEG tube placement or, if a patient on hospice, puree diet. Plan: - will continue to reach out to the decision maker regarding goal of care - D5W at 75 ml/hr - continue with puree diet #Enterocolitis, improving #Vomiting, resolved #Diarrhea, improving Patient does not meet sepsis criteria at this time Patient has been on hospice for about [address] scan appears to show some enterocolitis and patient is accompanied by diarrhea and vomiting We will continue with abx and symptomatic treatment Plan: ? Ciprofloxacin 400 mg IV twice daily ? Flagyl 500 mg IV every 8 hours ? Antiemetics ? Pain control ? Antipyretics including Tylenol including Zofran ? Urine culture grew Enterococcus Faecalis sensitive to ciprofloxacin. ? Blood cultures are negative #Elevated troponins .149 -> .314 Patient not experiencing chest pain at this time likely related to demand ischemia, however will continue to trend Plan: ? Troponins peaked and downtrended, will discontinue trending #History of hypertension #History of CVA Plan: ? Home blood pressure medications on on hold due to normal blood pressure ? home aspirin and Plavix #[id number] type II diabetes mellitus Plan: ? Sliding scale insulin ? Hypoglycemic protocol in place ? Blood sugar checks with meals #History of left adrenal nodule - accidental finding 1 cm, seen on CT abdomen pelvis Patient unlikely to have any intervention at this point considering patient is hospice. Plan: ? Consider outpatient follow-up #Health Maintenance Disposition: telemetry DVT prophylaxis: Heparin every 12 hours GI prophylaxis: Protonix Diet: Puree dysphagia 1 CODE STATUS: Full Plan of care discussed with attending Dr. Sen, PGY-[address] Last and PGY-[address] Barajas. Jolly Storm MD, PGY 1. Attending Provider Attestation/Addendum I reviewed labs, imaging, EKG, home medications and prior available records. Face to face evaluation was performed by me. I have personally examined the patient and discussed assessment and plan with the IM team. I reviewed the resident note and agree with the plan with exceptions as below. Failure to thrive in adult Gastroenteritis Hypoglycemia Hypokalemia Non-STEMI, likely type II from dehydration and acute illness History of CVA Goals of care discussion/counseling Glucose level improved. Continue D5W. Monitor fingersticks Discussed with speech therapy: Started pur?ed diet. Patient does not want to eat because the hospital food is not tasting Monitor electrolytes and replete as needed Continue ciprofloxacin/Flagyl Discussed goals of care with family: Agreed to continue current plan to go to hospice however she is still full code Start Plavix and atorvastatin Replete potassium as needed. Follow-up BMP Troponin peaked
[2024-05-26] MEDS: COLLAGENASE OINT 30 GM TUBE TOP (20:31)
[2024-05-27] VITALS (7 sets, daily range): BP systolic 121–149; BP diastolic 62–73; PULSE 70–93; RESP 15–20; TEMP 36–36.9; O2SAT 95–98; BMI 22.7
[2024-05-27] MEDS: DEXTROSE 5%-WATER 1,000 ML 75 ML IV (04:01)
[2024-05-27] MEDS: ONDANSETRON INJ 2 MG/ML INJ 2 ML 4 MG IV ×2 (04:26→11:51)
[2024-05-27] MEDS: metroNIDAZOLE/NS 500 MG IVPB 500 MG/100 ML BAG 200 MG IV ×2 (05:00→13:35)
[2024-05-27 05:47] LABS: Basophils % (Auto) 1 % (0-2.5); Eosinophils # (Auto) 0.1 Thou/mm3 (0.0-0.5); Eosinophils % (Auto) 1 % (0-10); Hematocrit 35.1 % (36.0-46.0); Hemoglobin 11.8 g/dL (12.0-16.0); Immature Granulocytes % (Auto) 1 % (0-0); Immature Granulocytes Auto 0.07 Thou/mm3 (0.00-0.00); Lymphocytes # (Auto) 2.4 Thou/mm3 (1.0-4.8); Lymphocytes % (Auto) 31 % (10-50); Mean Corpuscular HGB Conc 33.6 g/dl (31.0-37.0); Mean Corpuscular Hemoglobin 28.4 pg (25.0-35.0); Mean Corpuscular Volume 85 fL (80-100); Monocytes # (Auto) 0.7 Thou/mm3 (0.0-0.8); Monocytes % (Auto) 9 % (0-12); Neutrophils # (Auto) 4.4 Thou/mm3 (1.8-7.7); Neutrophils % (Auto) 57 % (37-80); Nucleated Red Blood Cell % 0 /100 WBC (0); Platelet Count 381 Thou/mm3 (140-440); RDW Standard Deviation 45.5 fL (36.4-46.3); Red Blood Count 4.15 Miln/mm3 (4.00-5.20); White Blood Count 7.8 Thou/mm3 (3.6-11.0)
[2024-05-27 06:26] LABS: Alanine Aminotransferase 10 U/L (10-49); Albumin, Serum 3.2 gm/dL (3.4-4.8); Alkaline Phosphatase 48 U/L (46-116); Anion Gap 12 (7-16); Aspartate Amino Transferase 29 U/L (0-34); BUN/Creatinine Ratio 9 Ratio (12-20); Bilirubin,Total 0.3 mg/dL (0.3-1.2); Blood Urea Nitrogen 7 mg/dL (9-23); Calcium 8.5 mg/dL (8.3-10.6); Calcium (Corrected) 9.1 mg/dL (8.5-10.1); Carbon Dioxide 24.6 mMol/L (20.0-31.0); Chloride 100 mMol/L (98-107); Creatinine (Component) 0.8 mg/dL (0.6-1.3); Estimated Creatinine Clearance 54.9 mL/min (>60); Globulin 3.2 gm/dL (2.3-3.5); Glucose 127 mg/dL (74-106); Magnesium 1.2 mg/dL (1.6-2.6); Osmolality,Calculated 273 (275-295); Phosphorous 2.6 mg/dL (2.4-5.1); Potassium 3.1 mMol/L (3.4-5.1); Sodium 137 mMol/L (136-145); Total Protein 6.4 gm/dL (5.7-8.2); eGFR > 60 See Note
[2024-05-27] MEDS: CIPROFLOXACIN/D5w 400 MG IVPB 400 MG/200 ML BAG 200 MG IV (08:07)
[2024-05-27] MEDS: PANTOPRAZOLE INJ 40 MG VIAL IVP (08:10)
[2024-05-27] MEDS: POTASSIUM CHLORIDE 20 mEq TABCR 40 MEQ PO (08:13)
[2024-05-27] MEDS: ASPIRIN EC 81 MG TABEC PO (08:13)
[2024-05-27] MEDS: CLOPIDOGREL BISULFATE 75 MG TABLET PO (08:13)
[2024-05-27] MEDS: HEPARIN SOD INJ 5000 UNIT/ML VIAL SC (09:00)
[2024-05-27] MEDS: Magnesium Sulfate 2 GM Ivpb 2 GM/50 ML BAG IV (09:00)
--- NOTE | 2024-05-27 12:58 | PC.SS ---
[employer]STER INVE[employer]MENT CASTING conducted phone contact with patient's daughter in law, Cinthia Ann ; to confirm discharge plan. D/C plan is for the patient to return home. Daughter in law confirmed patient's alignment with [facility]. Daughter in law confirmed plan to not have patient obtain PEG tube. Per daughter in law pureed feedings will be the choice for feedings. [employer] updated bedside nurse.
[2024-05-27] MEDS: MG HYD/AL HYD/SIME (Maalox Reg) SUSP 30 ML UDC PO (13:43)
--- NOTE | 2024-05-27 14:18 | ESPR_ITS ---
<Statement entered by Ryley Núñez MD - 05/28/24 12:34> The patient is clinically doing well except for GI symptoms not have any cardiac symptoms or chest pain evaluated the patient with resident physician agree with the treatment plan recommendation will sign off the case Unless she has any problems we will reevaluate the patient Documentation for date of: 05/27/24 Subjective Subjective Interval history: The Patient is evaluated bedside, had 1 episode of vomiting, greenish in color, complaining of epigastric discomfort, nonradiating, sharp discomfort associated with vomiting. No dyspnea or orthopnea. Symptoms likely related to dyspepsia, nurse reported that she had a hard time taking p.o. KCl, and had vomiting after some time. Patient is maintaining vitals normally, saturating well on room air, tentative plan for primary team is to discharge on hospice care. Pending echocardiogram, though patient does not have any clinical signs of heart failure, and if plan is to discharge on hospice can have echocardiogram outpatient if indicated at a later time. Cardiology will sign off at this point. Exam Vital Signs Temp Pulse Resp BP Pulse Ox O2 Del Method 98.5 F 79 18 125/62 97 Room Air 05/27/24 12:00 05/27/24 12:00 05/27/24 12:00 05/27/24 12:00 05/27/24 12:00 05/27/24 12:00 Narrative Exam General: In mild distress, complaining of epigastric discomfort. NAD, weak, frail, elderly woman, little musculature, blue hair Skin: Intact, no cyanosis or edema noted. HEENT: Atraumatic/normocephalic, TOSHA, neck supple Heart: RRR, S1 and S2 without clicks or murmurs Lungs: Clear on auscultation bilaterally, no difficulty breathing Abdomen: Soft, nontender. Bowel sounds present . Vascular: Peripheral pulses palpable Neuro: Speech is impaired, possible motor aphasia . Bedbound status, some movement against gravity bilateral lower limbs, unable to move right upper extremity. Right-sided facial droop. Objective Labs 05/27/24 04:48 05/27/24 04:48 Labs: Laboratory Results - last 24 hr 05/27/24 04:48 WBC 7.8 RBC 4.15 Hgb 11.8 L Hct 35.1 L MCV 85 MCH 28.4 MCHC 33.6 RDW Std Deviation 45.5 Plt Count 381 Neut % (Auto) 57 Lymph % (Auto) 31 [place] % (Auto) 9 Eos % (Auto) 1 Baso % (Auto) 1 Neut # (Auto) 4.4 Lymph # (Auto) 2.4 [place] # (Auto) 0.7 Eos # (Auto) 0.1 Baso # (Auto) 0.0 Immature Gran # (Auto) 0.07 H Absolute Nucleated RBC 0.00 Immature Gran % 1 H Nucleated RBC % 0 Sodium 137 Potassium 3.1 L Chloride 100 Carbon Dioxide 24.6 Anion Gap 12 BUN 7 L Creatinine 0.8 Estim Creat Clear Calc 54.9 L eGFR > 60 BUN/Creatinine Ratio 9 L Glucose 127 H Calculated Osmolality 273 L Calcium 8.5 Corrected Calcium 9.1 Phosphorus 2.6 Magnesium 1.2 L Total Bilirubin 0.3 AST 29 ALT 10 Alkaline Phosphatase 48 Total Protein 6.4 Albumin 3.2 L Globulin 3.2 Albumin/Globulin Ratio 1.0 L Quality Measures Quality Measures VTE prophylaxis Advance care planning discussed with:: patient Assessment & Plan Assessment Current Active Medications: Generic Name Dose Route Start Last Admin Trade Name Freq PRN Reason Stop Dose Admin Acetaminophen 650 mg 05/23/24 22:19 05/26/24 22:22 Acetaminophen 325 Mg Tablet PO 06/22/24 22:18 650 mg Q6H PRN Administration Fever >100 or pain 1-3 Aspirin 81 mg 05/24/24 09:00 05/27/24 08:13 Aspirin Ec 81 Mg Tabec PO 06/23/24 08:59 81 mg QDAY MARYSE Administration Clopidogrel Bisulfate 75 mg 05/24/24 09:00 05/27/24 08:13 Clopidogrel Bisulfate 75 Mg Tablet PO 06/23/24 08:59 75 mg QDAY MARYSE Administration Collagenase 0 gm 05/24/24 21:00 05/26/24 20:31 Collagenase Oint 30 Gm Tube TOP 06/23/24 20:59 1 applicatio HS MARYSE Administration Dextrose 50 ml 05/24/24 03:56 Dextrose 50%-Water Inj 50 Ml Syringe IV 06/23/24 03:55 Q15MIN PRN BG <50 OR BG <70 & pt unresponsive Dextrose 25 ml 05/25/24 08:30 Dextrose 50%-Water Inj 50 Ml Syringe IV 06/23/24 03:55 Q15MIN PRN BG 50-70 responsive Glucagon 1 mg 05/24/24 03:56 Glucagon Inj 1 Mg Vial IM Q15MIN PRN BG <70, and no IV access Heparin Sodium (Porcine) 5,000 unit 05/23/24 22:30 05/27/24 09:00 Heparin Sod Inj 5000 Unit/Ml Vial SC 06/06/24 22:29 5,000 unit Q12HR MARYSE Administration Ciprofloxacin/Dextrose 400 mg in 200 mls @ 200 mls/hr 05/25/24 09:00 05/27/24 08:07 Cipro Ivpb IV 06/01/24 08:59 200 mls/hr Q12HR MARYSE Administration Metronidazole 500 mg in 100 mls @ 200 mls/hr 05/25/24 09:00 05/27/24 05:00 Flagyl 500 Mg Iv IV 06/01/24 08:59 200 mls/hr Q8HR MARYSE Administration Dextrose 1,000 mls @ 75 mls/hr 05/25/24 08:30 05/27/24 04:01 D5w IV 06/24/24 08:29 75 mls/hr .[id number] MARYSE Administration Insulin Human Lispro 0 unit 05/24/24 06:00 05/27/24 11:46 Insulin Lispro (Admelog) 1 Unit/0.01 Ml Unit SC 06/23/24 05:59 Not Given Q6HR MRAYSE Protocol Melatonin 3 mg 05/25/24 17:20 05/26/24 22:23 Melatonin 3 Mg Tablet PO 06/24/24 20:59 3 mg HS PRN Administration Insomnia Ondansetron HCl 4 mg 05/24/24 13:10 05/27/24 11:51 Ondansetron Inj 2 Mg/Ml Inj 2 Ml IV 06/23/24 13:09 4 mg Q6HR PRN Administration NAUSEA OR VOMITING Protocol Pantoprazole Sodium 40 mg 05/24/24 09:00 05/27/24 08:10 Pantoprazole Inj 40 Mg Vial IVP 06/23/24 08:59 40 mg QDAY MARYSE Administration Plan The patient is a 74-year-old female past medical history including hypertension, type 2 diabetes mellitus, hyperlipidemia, history of CVA on aspirin and Plavix who came to the ER complaining of denies weakness, admitted to the medical floor with a diagnosis of enterocolitis and type II HI. The patient is alert, but speech is mostly incomprehensible, likely motor aphasia, limited H&P provided by patient, most of the information gathered from chart review. The patient was brought into the ER complaining of poor oral intake, vomiting and diarrhea. Associated weight loss over the past 6 months, the patient's denies active chest pain or shortness of breath, is currently saturating well on room air. In no acute distress at the time of evaluation. #Type II HI Cardiac consult was placed for elevated troponins, troponins peaked at 0.4 now downtrending, patient denies any active chest pain, is in no acute distress at the moment, no history of diaphoresis, chest discomfort or heaviness or shortness of breath, orthopnea. EKG shows right bundle branch block and sinus tachycardia. No acute ST-T changes noted. ?Likely type II HI in the setting of enterocolitis. ?Continue aspirin and Plavix ?Will order echocardiogram as no prior echocardiogram on file, but may defer echocardiogram on outpatient basis if plan to discharge with hospice care. ?Primary team plans to discharge the patient back on hospice care. Cardiology will sign off at this point. #Epigastric pain Less likely cardiac etiology, as patient is being treated for GI symptoms, complaining of vomiting this morning after taking p.o. KCl. Chest pain nonradiating, atypical, nondiaphoretic, maintaining normal vitals on room air. Symptoms likely related to dyspepsia. ? Will hold off on ordering cardiac enzymes at this point, as troponins were tolerated down trended on 05/24/2024. If chest pain continues to worsen may consider repeat testing. ? Continue aspirin and Plavix. #Enterocolitis #History of diabetes mellitus #History of hypertension #History of CVA ?Management per primary team Plan of care discussed with board liner operator Dr. Es Cat, PGy 2
--- NOTE | 2024-05-27 15:09 | PD.RESDS ---
Planned Discharge Date 05/27/24 DS: Providers Provider Date of admission: 05/26/24 05:37 Primary care physician: Physician No Primary/Family Admitting Provider: Yaya Rhoades MD Attending Provider on Admission: Rafael Sen MD Consults: 05/23/24 17:25 Consult to Cardiology Stat Comment: Elevated troponin Consulting Provider: Ryley Núñez 05/24/24 08:00 Referral Speech Therapy Routine Comment: Referral Wound Care Routine Comment: 05/24/24 15:04 Referral Discharge Planning Routine Comment: Will need wound care on discharge Referral Registered Dietitian Routine Comment: Wounds 05/27/24 14:53 Referral Hospice Routine Comment: Attending Provider on DC: Penelope Last MD Discharging Provider: Penelope Last MD DS: Diagnosis Problem List Completed Was Problem List Reviewed/Reconciled?: Yes Hospital Course Hospital Course Hospital course: Reason for hospitalization: Enterocolitis, failure to thrive Discharge Recommendations: -Follow up with PCP within 1 week of discharge -Continue rest of medications as previously prescribed -Return to the ED or call EMS if symptoms return and/or worsen. Hospital Diagnoses: The patient is a 74 year old female with previous medical history of s/p CVA, hypertension, type 2 diabetes who was admitted due to weakness and poor oral intake. #Failure to thrive #Dysphagia #Status post CVA #Cognitive deficit Failure to thrive and poor oral intake also can be worsened by enterocolitis Patient is on hospice at home. Speech eval recommended PEG tube placement or, if a patient on hospice, puree diet. Plan: - will continue to reach out to the decision maker regarding goal of care - D5W at 75 ml/hr - continue with puree diet #Enterocolitis, improving #Vomiting, resolved #Diarrhea, improving Patient does not meet sepsis criteria at this time Patient has been on hospice for about [address] scan appears to show some enterocolitis and patient is accompanied by diarrhea and vomiting We will continue with abx and symptomatic treatment Plan: ? Ciprofloxacin 400 mg IV twice daily ? Flagyl 500 mg IV every 8 hours ? Antiemetics ? Pain control ? Antipyretics including Tylenol including Zofran ? Urine culture grew Enterococcus Faecalis sensitive to ciprofloxacin. ? Blood cultures are negative #Elevated troponins .149 -> .314 Patient not experiencing chest pain at this time likely related to demand ischemia, however will continue to trend Plan: ? Troponins peaked and downtrended, will discontinue trending #History of hypertension #History of CVA Plan: ? Home blood pressure medications on on hold due to normal blood pressure ? home aspirin and Plavix #Eep-[id number] type II diabetes mellitus Plan: ? Sliding scale insulin ? Hypoglycemic protocol in place ? Blood sugar checks with meals #History of left adrenal nodule - accidental finding 1 cm, seen on CT abdomen pelvis Patient unlikely to have any intervention at this point considering patient is hospice. Plan: ? Consider outpatient follow-up Time Spent with Patient Time attestation: Total time spent providing and/or coordinating discharge services: Exam Vital Signs Temp Pulse Resp BP Pulse Ox O2 Del Method 98.5 F 79 18 125/62 97 Room Air 05/27/24 12:00 05/27/24 12:00 05/27/24 12:05/27/24 12:00 05/27/24 12:05/27/24 12:00 Narrative Exam Physical Exam General: Awake and in no acute distress. Blue hair. HEENT: Normocephalic, atraumatic, mucous membranes moist. Heart: Regular rate and rhythm, no murmurs. Lungs: Clear to auscultation with no wheezing or crackles. Abdomen: Soft, nondistended, nontender, positive bowel sounds. ?No guarding or rebound tenderness. Neurologic: Alert and oriented x2 (not in place), right sided hemiparesis, right sided facial droop. Does not fully follow commands. Extremities: No edema. Sacral and right hip pressure ulcer. Skin: No rash or ecchymoses. Discharge Plan Plan Patient Disposition: Home w/HOSPICE Patient condition on transfer: Stable Prescriptions/Referrals Prescriptions/Med Rec: New potassium chloride 10 mEq packet 10 meq PO QDAY Qty: 30 0RF Referrals: No Primary/Family,Physician [Primary Care Provider] - Patient/Caregiver Discharge Instructions Discharge Activity: activity as tolerated Education Materials: What Is Hospice?, For Caregivers: Coping Tips, Dysphagia Aspiration, Dysphagia Diet- Managing Drinks, Dysphagia Diet- Managing Foods Print Language: Bruneian Stand Alone Forms: [employer] Award Info., Patient Portal Info Letter Discharge Order Discharge Orders: Discharge (Routine); Ordered 05/27/24 Ordered By: Penelope aLst Quality Discharge Quality Measures none Attestestation Attestation I reviewed labs, imaging, EKG, home medications and prior available records. Face to face evaluation was performed by me. I have personally examined the patient and discussed assessment and plan with the IM team. I reviewed the resident note and agree with the plan with exceptions as below. Failure to thrive in adult Gastroenteritis Hypoglycemia Hypokalemia Non-STEMI, likely type II from dehydration and acute illness History of CVA Goals of care discussion/counseling Glucose level improved. Patient is eating however she is taking Discussed with speech therapy: Started pur?ed diet. Patient does not want to eat because the hospital food is not tasting Monitor electrolytes as outpatient Finished a course of ciprofloxacin/Flagyl Discussed goals of care with family: Agreed to continue current plan to go to hospice Continue Plavix and atorvastatin Will prescribe potassium chloride. Monitor potassium level as outpatient Troponin peaked Time spent is 40 minutes. More than 50% of the time was spent on patient education and coordination of care.
--- NOTE | 2024-05-27 15:32 | PC.SS ---
CLERK OF WORKS contacted [facility] to initiate transport. Reference #[id number]. Preferred vendor [employer]. Documentation submitted on [employer]. Awaiting response.
--- NOTE | 2024-05-27 15:56 | PC.SS ---
Hospice referral submitted to [facility] on [employer] platform.
--- NOTE | 2024-05-27 16:17 | PC.SS ---
THREAD REELER contacted dispatch to confirm if [employer] has authorized transport. Authorization is pending. THREAD REELER submitted documentation to dispatch on [facility].
--- NOTE | 2024-05-27 17:08 | PC.SS ---
CLINICAL DATA COORDINATOR contacted dispatch to confirm if [employer] has authorized transport. CLINICAL DATA COORDINATOR informed by dispatch that authorization has not been obtained. CLINICAL DATA COORDINATOR updated bedside nurse and [facility] staff.
--- NOTE | 2024-05-27 17:55 | PC.SS ---
CADDY/CADDIE SUPERVISOR confirmed that [facility] has authorized [facility] to provide transportation on behalf of the patient. Transport time is 7:00 pm. CADDY/CADDIE SUPERVISOR updated bedside nurse and [facility]. [facility] to notify patient's family.
== END 2024-05-27 19:10 | disposition hospice, home (50) | DRG 392 ==
LOC: SERX 20:03 → SERHOLD 22:35 → S2NX 05-24 00:26
PROVIDERS: Nurse Practitioner Family; Admitting Provider Internal Medicine; Emergency Provider Emergency Medicine; Visit Provider Student in an Organized Health Care Education/Training Program
DX: K52.9 Noninfective gastroenteritis and colitis, unspecified (principal); I47.20 Ventricular tachycardia, unspecified; I69.351 Hemiplegia and hemiparesis following cerebral infarction affecting right dominant side; I24.89 Other forms of acute ischemic heart disease; R62.7 Adult failure to thrive; E11.649 Type 2 diabetes mellitus with hypoglycemia without coma; S00.03XA Contusion of scalp, initial encounter; R41.82 Altered mental status, unspecified; I69.320 Aphasia following cerebral infarction; R13.10 Dysphagia, unspecified; Z82.49 Family history of ischemic heart disease and other diseases of the circulatory system; E78.5 Hyperlipidemia, unspecified; E11.9 Type 2 diabetes mellitus without complications; K57.30 Diverticulosis of large intestine without perforation or abscess without bleeding; K59.09 Other constipation; I10 Essential (primary) hypertension; E87.6 Hypokalemia; E27.8 Other specified disorders of adrenal gland; E86.0 Dehydration; I45.10 Unspecified right bundle-branch block; K76.0 Fatty (change of) liver, not elsewhere classified; B95.2 Enterococcus as the cause of diseases classified elsewhere; Z51.5 Encounter for palliative care; Z83.3 Family history of diabetes mellitus; Z74.01 Bed confinement status; Z79.02 Long term (current) use of antithrombotics/antiplatelets; Z79.82 Long term (current) use of aspirin
CPT/HCPCS: 36415; 70450; 71045; 73502; 74177; 80053; 81001; 83036; 83605; 83615; 83690; 83735; 83880; 84100; 84145; 84484; 85025; 85610; 85730; 87040; 87077; 87086; 87186; 87400; 87811; 92610; 93005; 96361; 96365; 96375; 99285; A4649; G0378; J0696; J0744; J1630; J1643; J2270; J2405; J2470; J2765; J3475; J3480; J3490; J7030; J7050; J7070; J7120; Q9967; A9270; J1836

== ENCOUNTER 2024-08-14 19:04 | Inpatient (IN) | payer MEDICARE, MEDICAID, SELFPAY ==
[2024-08-14 19:10] VITALS: BP 172/108; PULSE 136; RESP 19; TEMP 36.5; O2SAT 96
--- NOTE | 2024-08-14 19:26 | EDNOTE_ITS ---
ED General RME/HPI General Chief complaint: Chest Pain Stated complaint: CHEST PAIN Time Seen by Provider: 08/14/24 19:25 Arrival date/time: 08/14/24 19:04 RME / HPI RME / HPI narrative: 74-year-old female with a past medical history of CVA with left-sided weakness presents to the ED via EMS with a complaint of chest pain. Per EMS the patient is complaining of generalized pain. Apparently she was not given any pain medications by her family and has not had anything to eat today. The family states that she has pressure ulcers. They also states that she is on hospice but is a full code. Related Data Previous Rx's ?Medication ?Instructions ?Recorded potassium chloride 10 mEq oral 10 meq PO QDAY low pota ssium #30 ea 05/27/24 packet Allergies Allergy/AdvReac Type Severity Reaction Status Date / Time No Known Allergies Allergy Verified 04/08/24 21:34 Review of Systems Review of Systems Systems Reviewed: All systems reviewed, normal except as documented Past Medical History Past Medical History NEUROLOGIC: Positive Cerebrovascular Accident CARDIAC: Positive Cardiac Disorders and Hypertension; Negative Congestive Heart Failure RESPIRATORY: Negative Chronic Obstructive Pulmonary Disease (COPD) or Asthma GENITOURINARY: Negative Renal Disease ENDOCRINE: Negative Diabetes Mellitus Type 1 or Diabetes Mellitus Type 2 HEMATOLOGIC: Negative Sickle Cell Disease Social History SMOKING STATUS: Unknown if ever smoked SUBSTANCE USE: does not use ED Exam Narrative Physical exam: Alert, 74-year-old female, laying on ambulance gurney. Tachycardic, lungs are clear, foul odor noted, unkept with dirty hands and feet. Abdomen is soft and non tender. Brief in place. Coccyx decubitus ulcer with eschar noted. Right hip with decubitus ulcer stage 2. Course Course Course Narrative: 74-year-old female with a past medical history of CVA with left-sided weakness presents to the ED via EMS with a complaint of chest pain. Per EMS the patient is complaining of generalized pain. Apparently she was not given any pain medications by her family and has not had anything to eat today. The family states that she has pressure ulcers. They also states that she is on hospice but is a full code. Alert, 74-year-old female, laying on ambulance gurney. Tachycardic, lungs are clear, foul odor noted, unkept with dirty hands and feet. Abdomen is soft and non tender. Brief in place. Coccyx decubitus ulcer with eschar noted. Right hip with decubitus ulcer stage 2. Initial blood pressure 172/108, pulse 136, respirations 19, temperature 97.7, O2 sat 96% on room air. Labs reveal WBCs 11.7, normal H&H, normal platelets, coags are normal, chemistry panel reveals Lactic of 2.3, normal sodium and chloride as well as potassium and magnesium. LDH elevated at 342, troponin normal at less than 0.020, CRP elevated at 13.3, procalcitonin 0.17. Urinalysis reveals clear yellow urine with a specific gravity 1.031 with 1+ protein, 1+ ketones, negative leukocyte esterase, negative nitrates and no bacteria. Chest x-ray reveals no pneumonia or pulmonary edema. FINDINGS: Normal heart size Skin folds over the right hemithorax No pneumonia or pulmonary edema Moderate osteopenia IMPRESSION: No pneumonia or pulmonary edema Patient was given sepsis fluids 2000 mL of sodium chloride and her pain was controlled with Dilaudid 0.5 mg IVP as well as Zofran 4 mg IVP. Discussed case with Resident, Dr. Ewing for admission. Will discuss with Attending. Quality Measures Current suspected stage: sepsis Possible source: wound Blood cultures ordered: yes Pertinent labs: 08/14/24 08/15/24 20:20 00:20 Lactic Acid 2.3 H mMol/L 1.5 mMol/L (0.4-2.0) (0.4-2.0) Procalcitonin 0.17 ng/ml (0.0-0.49) sepsis Orders Category Date Time Status EKG (ED ONLY) *Do not use* NOW Care 08/14/24 19:27 Completed In and Out Catheter X1 Care 08/14/24 19:28 Completed EKG (ED Only) Stat Exams 08/14/24 19:27 Ordered XR chest 1V portable Stat Exams 08/14/24 19:27 Completed B-Type Natriuretic Peptide Stat Lab 08/14/24 20:20 Completed Blood Culture (Lab) Stat Lab 08/14/24 20:20 Received CBC Stat Lab 08/14/24 20:20 Completed CRP [C-Reactive Protein] Stat Lab 08/14/24 20:20 Completed Comprehensive Metabolic Panel Stat Lab 08/14/24 20:20 Completed Drug Screen,Urine Stat Lab 08/14/24 20:05 Completed LDH (Lactate Dehydrogenase) Stat Lab 08/14/24 20:20 Completed Lactic Acid [Lactate (Lactic Acid)] Stat Lab 08/14/24 20:20 Completed Lactic Acid, 3 HR Stat Lab 08/14/24 23:57 Completed Magnesium Stat Lab 08/14/24 20:20 Completed Partial Thromboplastin Time Stat Lab 08/14/24 20:20 Completed Procalcitonin Stat Lab 08/14/24 20:20 Completed Prothrombin Time with INR Stat Lab 08/14/24 20:20 Completed Troponin I Stat Lab 08/14/24 20:20 Completed Urinalysis Stat Lab 08/14/24 20:05 Completed Urine Culture Stat Lab 08/14/24 20:05 Received Doxycycline Inj [Vibramycin Inj] 100 mg Med 08/15/24 00:56 Ordered Sodium Chloride 0.9% (Pop) [NS 0.9% mini bag] 100 ml IV X1 HYDROmorphone INJ [Dilaudid Inj] Med 08/14/24 23:45 Active 0.5 mg IVP Q30MIN PRN Ondansetron Inj [Zofran Inj] Med 08/14/24 23:53 Discontinued 4 mg IVP X1 ONE Piper/Tazo 3.375 gm Premix [Zosyn] Med 08/15/24 00:56 Ordered 3.375 gm in 50 ml IV X1 Sodium Chloride 0.9% 1000 ml [Ns] 1,000 ml Med 08/15/24 00:08 Active IV 999 mls/hr Sodium Chloride 0.9% 1000 ml [Ns] 1,000 ml Med 08/15/24 00:09 Active IV 999 mls/hr Sodium Chloride 0.9% [Ns] Med 08/14/24 23:54 Discontinued 2,000 ml IV X1 ONE Vital Signs Vital signs: Vital Signs Temperature 97.7 F 08/14/24 19:10 Pulse Rate 136 H 08/14/24 19:10 Respiratory Rate 19 08/14/24 19:10 Blood Pressure 172/108 H 08/14/24 19:10 Pulse Oximetry (%) 96 08/14/24 19:10 Oxygen Delivery Method Room Air 08/14/24 19:10 Discharge Plan Plan Patient Disposition: Admit Acute Care w/in Hospital Discharge Disposition comment: Stable Prescriptions/Referrals Prescriptions/Med Rec: No Action potassium chloride 10 mEq packet 10 meq PO QDAY Qty: 30 0RF Referrals: No Primary/Family,Physician [Primary Care Provider] - In 1 week Problem List Clinical Impression: Acute dehydration, Sepsis, Decubitus ulcer of back, Pain after cerebrovascular accident (CVA) Patient/Caregiver Discharge Instructions Print Language: Uzbek Stand Alone Forms: Nica Award Info., Patient Portal Info Letter PA/ROOMING HOUSE INSPECTOR Supervising Physician PA/ROOMING HOUSE INSPECTOR Supervising Physician: Dr. Mohsen MORAN Narrative [facility] [place] hospital course: 74-year-old female with a past medical history of CVA with left-sided weakness presents to the ED via EMS with a complaint of chest pain. Per EMS the patient is complaining of generalized pain. Apparently she was not given any pain medications by her family and has not had anything to eat today. The family states that she has pressure ulcers. They also states that she is on hospice but is a full code. Alert, 74-year-old female, laying on ambulance gurney. Tachycardic, lungs are clear, foul odor noted, unkept with dirty hands and feet. Abdomen is soft and non tender. Brief in place. Coccyx decubitus ulcer with eschar noted. Right hip with decubitus ulcer stage 2. Initial blood pressure 172/108, pulse 136, respirations 19, temperature 97.7, O2 sat 96% on room air. Labs reveal WBCs 11.7, normal H&H, normal platelets, coags are normal, chemistry panel reveals Lactic of 2.3, normal sodium and chloride as well as potassium and magnesium. LDH elevated at 342, troponin normal at less than 0.020, CRP elevated at 13.3, procalcitonin 0.17. Urinalysis reveals clear yellow urine with a specific gravity 1.031 with 1+ protein, 1+ ketones, negative leukocyte esterase, negative nitrates and no ba cteria. Chest x-ray reveals no pneumonia or pulmonary edema. FINDINGS: Normal heart size Skin folds over the right hemithorax No pneumonia or pulmonary edema Moderate osteopenia IMPRESSION: No pneumonia or pulmonary edema Patient was given sepsis fluids 2000 mL of sodium chloride and her pain was controlled with Dilaudid 0.5 mg IVP as well as Zofran 4 mg IVP. Zosyn 3.375gm and Doxycycline 100mg IV ordered. Discussed case with Resident, Dr. Ewing for admission. Will discuss with Attending. Clinical Information Provided by patient and EMS Medical Records Reviewed [facility] Meds/Rx Considered, not Ordered None Labs/Rad/Tests considered, not Ordered None Chronic Illness/Social Conditions which may negatively complicate care or outcome(s)-explain: CVA/aphasic and correction/debilitated Lab Interpretation Labs: interpreted by tx Lab(s) interpretation(s): Labs reveal WBCs 11.7, normal H&H, normal platelets, coags are normal, chemistry panel reveals Lactic of 2.3, normal sodium and chloride as well as potassium and magnesium. LDH elevated at 342, troponin normal at less than 0.020, CRP elevated at 13.3, procalcitonin 0.17. Urinalysis reveals clear yellow urine with a specific gravity 1.031 with 1+ protein, 1+ ketones, negative leukocyte esterase, negative nitrates and no bacteria. Imaging Imaging interpretation: other (Per Radiologist) Radiology reports / interpretation(s): XR Chest: FINDINGS: Normal heart size Skin folds over the right hemithorax No pneumonia or pulmonary edema Moderate osteopenia IMPRESSION: No pneumonia or pulmonary edema Medication Administration(s) Medication Administration History Hydromorphone HCl (Hydromorphone Inj 2 Mg/Ml Vial) 0.5 mg IVP Q30MIN PRN PRN Reason: PAIN Stop: 08/19/24 23:44 Last Admin: 08/15/24 00:06 Dose: 0.5 mg Documented By: SUNIL Sodium Chloride (Ns) 1,000 mls @ 999 mls/hr IV .Q1H1M ONE Stop: 08/15/24 01:08 Last Admin: 08/15/24 00:19 Dose: 999 mls/hr Documented By: SUNIL Sodium Chloride (Ns) 1,000 mls @ 999 mls/hr IV .Q1H1M ONE Stop: 08/15/24 01:09 Last Admin: 08/15/24 00:20 Dose: 999 mls/hr Documented By: SUNLI Piperacillin/Tazobactam/Dextrose (Zosyn) 3.375 gm in 50 mls @ 100 mls/hr IV X1 ONE Stop: 08/15/24 01:25 Doxycycline Hyclate 100 mg/ (Sodium Chloride) 100 mls @ 100 mls/hr IV X1 ONE Stop: 08/15/24 01:55 Discontinued Medications Ondansetron HCl (Ondansetron Inj 2 Mg/Ml Inj 2 Ml) 4 mg IVP X1 ONE; Protocol Stop: 08/14/24 23:54 Last Admin: 08/15/24 00:06 Dose: 4 mg Documented By: SUNIL Sodium Chloride (Sodium Chloride 0.9% Inj 50 Ml Vial) 2,000 ml IV X1 ONE Stop: 08/14/24 23:55 Last Admin: 08/15/24 00:40 Dose: Not Given Documented By: SUNIL Non-Admin Reason: Cancelled by Provider Diagnosis Differential diagnosis: Sepsis, pneumonia, dehydration, UTI, decubitus ulcer infection Differential dx and/or dx ruled out: Pneumonia, dehydration Most likely dx, and/or detailed dx discussion: Mild sepsis secondary to decubitus ulcer infection as well as dehydration. Dispositon Disposition: Admit Disposition comments: Discussed case with Dr. Ewing, resident who will discuss with attending physician.
--- NOTE | 2024-08-14 19:27 | XR_ITS ---
Examination: AP chest single view TECHNIQUE: AP portable semiupright chest single view Date and time: August 14, 20242039 hours COMPARISON: May 23, 2024 INDICATIONS: Chest pain and shortness of breath today. FINDINGS: Normal heart size Skin folds over the right hemithorax No pneumonia or pulmonary edema Moderate osteopenia IMPRESSION: No pneumonia or pulmonary edema
--- NOTE | 2024-08-14 19:27 | EKG_ITS ---
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
[2024-08-14 19:41] VITALS: PULSE 118; O2SAT 98
[2024-08-14 19:57] VITALS: BMI 23.0
[2024-08-14 20:01] VITALS: BP 174/79; PULSE 120; RESP 15; TEMP 37.8; O2SAT 98
[2024-08-14 20:21] LABS: Collection Type, Urine Catheter; RBC,Urine 0 /hpf (0-3); WBC,Urine 0 /hpf (0-5)
[2024-08-14 20:43] LABS: Amphetamine/Methamp Scrn,U Negative (Negative); Barbiturate Screen,Urine Negative (Negative); Benzodiazepines Screen,Urine Negative (Negative); Benzoylecgonine Screen, Ur Negative (Negative); Fentanyl Screen,Urine Negative (Negative); Opiate Screen,Urine Positive (Negative); THC Screen,Urine Negative (Negative)
[2024-08-14 20:55] LABS: Bilirubin,Urine 1+ (Negative); Blood,Urine Negative (Negative); Clarity,Urine Clear (Clear/Hazy); Color,Urine Yellow (Lt Yel-Yel); Glucose, Urine Negative (Negative); Ketones,Urine 1+ (Negative); Leukocyte Esterase,Urine Negative (Negative); Nitrite,Urine Negative (Negative); PH,Urine 5.5 (5.0-7.0); Protein,Urine 1+ (Neg - Trace); Specific Gravity,Urine 1.031 (1.001-1.035); Squamous Epithelial Cell,Urine 1 /hpf (0-5)
[2024-08-14 20:56] LABS: Lactate (Lactic Acid) 2.3 mMol/L (0.4-2.0)
[2024-08-14 20:58] LABS: Basophils % (Auto) 0 % (0-2.5); Eosinophils % (Auto) 0 % (0-10); Hematocrit 36.5 % (36.0-46.0); Hemoglobin 12.1 g/dL (12.0-16.0); Immature Granulocytes % (Auto) 1 % (0-0); Immature Granulocytes Auto 0.07 Thou/mm3 (0.00-0.00); Lymphocytes # (Auto) 0.9 Thou/mm3 (1.0-4.8); Lymphocytes % (Auto) 8 % (10-50); Mean Corpuscular HGB Conc 33.2 g/dl (31.0-37.0); Mean Corpuscular Hemoglobin 30.2 pg (25.0-35.0); Mean Corpuscular Volume 91 fL (80-100); Monocytes # (Auto) 0.5 Thou/mm3 (0.0-0.8); Monocytes % (Auto) 4 % (0-12); Neutrophils # (Auto) 10.2 Thou/mm3 (1.8-7.7); Neutrophils % (Auto) 88 % (37-80); Nucleated Red Blood Cell % 0 /100 WBC (0); Platelet Count 354 Thou/mm3 (140-440); RDW Standard Deviation 53.1 fL (36.4-46.3); Red Blood Count 4.01 Miln/mm3 (4.00-5.20); White Blood Count 11.7 Thou/mm3 (3.6-11.0)
[2024-08-14 21:15] LABS: INR 1.1 (0.9-1.3); Partial Thromboplastin Time 22.9 Seconds (22.0-36.0); Prothrombin Time 11.9 Seconds (9.0-12.2)
[2024-08-14 21:22] LABS: B-Type Natriuretic Peptide 88 pg/mL (0-100)
[2024-08-14 21:28] LABS: Alanine Aminotransferase 8 U/L (10-49); Albumin/Globulin Ratio 0.8 (1.2-2.2); Alkaline Phosphatase 119 U/L (46-116); Anion Gap 16 (7-16); Aspartate Amino Transferase 31 U/L (0-34); BUN/Creatinine Ratio 26 Ratio (12-20); Bilirubin,Total 0.7 mg/dL (0.3-1.2); Blood Urea Nitrogen 18 mg/dL (9-23); C-Reactive Protein 13.9 mg/dL (0.0-0.9); Calcium 8.3 mg/dL (8.3-10.6); Calcium (Corrected) 9.1 mg/dL (8.5-10.1); Carbon Dioxide 26.3 mMol/L (20.0-31.0); Chloride 100 mMol/L (98-107); Creatinine (Component) 0.7 mg/dL (0.6-1.3); Estimated Creatinine Clearance 57.5 mL/min (>60); Glucose 87 mg/dL (74-106); LDH (Lactate Dehydrogenase) 342 U/L (120-246); Magnesium 1.6 mg/dL (1.6-2.6); Osmolality,Calculated 284 (275-295); Procalcitonin 0.17 ng/ml (0.0-0.49); Sodium 142 mMol/L (136-145); Troponin I < 0.020 ng/mL (0.0-0.045); eGFR > 60 See Note
[2024-08-14 23:26] VITALS: BP 120/81; PULSE 117; RESP 16; TEMP 37.7; O2SAT 95
[2024-08-14 23:57] LABS: Reflex Lactate? Y
[2024-08-15] VITALS (11 sets, daily range): BP systolic 96–153; BP diastolic 59–85; PULSE 73–112; RESP 16–100; TEMP 36.2–37.2; O2SAT 96–100; BMI 21.7; BMI 21.9
[2024-08-15] MEDS: HYDROmorphone INJ 2 MG/ML VIAL 0.5 MG IVP (00:06)
[2024-08-15] MEDS: ONDANSETRON INJ 2 MG/ML INJ 2 ML 4 MG IVP (00:06)
[2024-08-15] MEDS: SODIUM CHLORIDE 0.9% 1000 ML 1,000 ML 999 ML IV ×2 (00:19→00:20)
[2024-08-15 00:27] LABS: Lactic Acid, 3 HR 1.5 mMol/L (0.4-2.0)
--- NOTE | 2024-08-15 01:20 | PD.RESHP ---
Documentation for date of: 08/15/24 HPI History of Present Illness Chief complaint: failure to thrive History of present illness: 74-year-old female with past medical history of hypertension, DM2, hyperlipidemia, and CVA with residual deficits was admitted to the hospital on 08/15/2024 for observation after coming to the ED with complaints of pain and decreased oral intake. Patient is a very poor historian and speech is very hard to understand secondary to CVA. Per ER provider patient was brought in by EMS secondary to chest pain, but troponins were negative initially and patient stated that she did not have any chest pain at this time. She stated that she did have pain in her buttocks. Patient is currently on hospice. Patient's daughter was contacted, but all of the numbers in the system were not reachable. Patient's daughter did call back to the hospital and she was transferred to our phone. Patient's daughter Cinthia can be reached at extension [phone]. Patient's daughter stated that lately she has been having a lot of difficulty taking care of the patient given her worsening weakness, poor oral intake, and that she is unable to take care of the patient at this time as she has increased health needs. She stated that patient has been minimally able to eat some small bites, but that she does not feel hungry at all most of the time and that even when she drinks water she has pain. Today patient was complaining of chest pain to a point where patient's daughter got concerned and called hospice who stated to give pain medication, but patient's daughter was still concerned that she called EMS. At this time patient is still full code per patient's daughter and she was previously recommended to get PEG tube placed, but patient's family decided against this. Today we will reassess the possibility of placing a PEG tube and patient's family decided to have the PEG tube placed during this admission giving the continued poor oral intake and failure to thrive. ED course: Initially came in hypertensive, tachycardic, and afebrile. Initial labs showed mild leukocytosis, lactic acidosis was resolved, elevated lactate dehydrogenase, and U-Tox positive for opiates. Initial imaging included chest x-ray which was unremarkable. Review of Systems Review of Systems Systems Reviewed: All systems reviewed, normal except as documented Past Medical History Past Medical History NEUROLOGIC: Positive Cerebrovascular Accident CARDIAC: Positive Cardiac Disorders and Hypertension; Negative Congestive Heart Failure RESPIRATORY: Negative Chronic Obstructive Pulmonary Disease (COPD) or Asthma GENITOURINARY: Negative Renal Disease ENDOCRINE: Negative Diabetes Mellitus Type 1 or Diabetes Mellitus Type 2 HEMATOLOGIC: Negative Sickle Cell Disease Social History SMOKING STATUS: Unknown if ever smoked SUBSTANCE USE: does not use Exam Vital Signs Temp Pulse Resp BP Pulse Ox O2 Del Method 99.8 F 117 H 16 120/81 95 Room Air 08/14/24 23:26 08/14/24 23:26 08/14/24 23:26 08/14/24 23:26 08/14/24 23:26 08/14/24 23:26 Narrative Exam General: A/O x1 (only to person), frail, ill appearing elderly with temporal wasting. Eyes: PERRL, EOMI. Anicteric, vision grossly intact. Ears: No ear pain, no ear discharge, Hearing grossly intact. Nose: No nasal discharge. Mouth/Throat: dry mucous membranes, no redness, no lesions. Neck: Neck supple, non-tender, no cervical lymphadenopathy. Lungs: Clear [place] to auscultation and percussion, No accessory muscle use. Cardio: Normal S1/S2, regular rhythm, no murmurs, no JVD Abdomen: Soft, non-tender, no palpable masses, peristalsis present, no guarding or rebound. Extremities: Symmetrical, no significant deformities, no peripheral edema , non-tender, peripheral pulses presents. Skin: Two pressure ulcers located on the lateral aspect of the right foot measuring around 1 cm in circumference both. Pressure ulcer located on the right buttocks laterally measuring around 2 to 3 cm in circumference and coccygeal ulcer measuring around 4 to 5 m in circumference. All of these were stage II with the residual being stage II moving towards stage III. Neuro: Patient has right facial droop along with right hemiparesis and is unable to follow commands. She is AO x 1 only to her name. Psych: Cooperative, appropriate mood and effect. Results: Labs 08/14/24 20:20 08/14/24 20:20 Labs: Short CBC 08/14/24 Range/Units 20:20 WBC 11.7 H (3.6-11.0) Thou/mm3 Hgb 12.1 (12.0-16.0) g/dL Hct 36.5 (36.0-46.0) % Plt Count 354 (140-440) Thou/mm3 BMP 08/14/24 20:20 Sodium 142 Potassium 4.0 Chloride 100 Carbon Dioxide 26.3 BUN 18 Creatinine 0.7 Glucose 87 Calcium 8.3 Cardiac Enzymes 08/14/24 Range/Units 20:20 Troponin I < 0.020 (0.0-0.045) ng/mL Liver Function 08/14/24 Range/Units 20:20 Total Bilirubin 0.7 (0.3-1.2) mg/dL AST 31 (0-34) U/L ALT 8 L (10-49) U/L Alkaline Phosphatase 119 H (46-116) U/L Albumin 3.0 L (3.4-4.8) gm/dL Urine 08/14/24 Range/Units 20:05 Urine Color Yellow (Lt Yel-Yel) Urine Clarity Clear (Clear/Hazy) Urine pH 5.5 (5.0-7.0) Ur Specific [place] 1.031 (1.001-1.035) Urine Protein 1+ A (Neg - Trace) Urine Glucose (UA) Negative (Negative) Quality Measures Quality Measures sepsis Current suspected stage: ruled out Possible source: wound Blood cultures ordered: yes Antibiotic ordered: No Advance care planning discussed with:: patient Medications Home Medications and Allergies Allergies Allergy/AdvReac Type Severity Reaction Status Date / Time No Known Allergies Allergy Verified 04/08/24 21:34 Visit Medications Enoxaparin Sodium (Enoxaparin Sod Inj 40 Mg/0.4 Ml Syringe) 40 mg SC QDAY [facility] Stop: 08/29/24 08:59 Hydromorphone HCl (Hydromorphone Inj 2 Mg/Ml Vial) 0.5 mg IVP Q30MIN PRN PRN Reason: PAIN Stop: 08/19/24 23:44 Last Admin: 08/15/24 00:06 Dose: 0.5 mg Piperacillin/Tazobactam/Dextrose (Zosyn) 3.375 gm in 50 mls @ 100 mls/hr IV X1 ONE Stop: 08/15/24 01:25 Doxycycline Hyclate 100 mg/ (Sodium Chloride) 100 mls @ 100 mls/hr IV X1 ONE Stop: 08/15/24 01:55 Sodium Chloride (Ns) 1,000 mls @ 75 mls/hr IV .[id number] MARYSE Stop: 09/14/24 01:14 Morphine Sulfate (Morphine Sulf Inj 10 Mg/Ml Vial) 1 mg IVP Q2H PRN PRN Reason: PAIN SCALE 4-10(Mod-Sev Stop: 08/20/24 01:14 Ondansetron HCl (Ondansetron Inj 2 Mg/Ml Inj 2 Ml) 4 mg IVP Q6H PRN; Protocol PRN Reason: NAUSEA OR VOMITING Stop: 09/14/24 01:14 Discontinued Medications Sodium Chloride (Ns) 1,000 mls @ 999 mls/hr IV .Q1H1M ONE Stop: 08/15/24 01:08 Last Admin: 08/15/24 00:19 Dose: 999 mls/hr Sodium Chloride (Ns) 1,000 mls @ 999 mls/hr IV .Q1H1M ONE Stop: 08/15/24 01:09 Last Admin: 08/15/24 00:20 Dose: 999 mls/hr Ondansetron HCl (Ondansetron Inj 2 Mg/Ml Inj 2 Ml) 4 mg IVP X1 ONE; Protocol Stop: 08/14/24 23:54 Last Admin: 08/15/24 00:06 Dose: 4 mg Sodium Chloride (Sodium Chloride 0.9% Inj 50 Ml Vial) 2,000 ml IV X1 ONE Stop: 08/14/24 23:55 Last Admin: 08/15/24 00:40 Dose: Not Given Assessment & Plan Plan 74-year-old female with past medical history of hypertension, DM2, hyperlipidemia, and CVA with residual deficits was admitted to the hospital on 08/15/2024for failure to thrive requiring PEG tube placement. #Failure to thrive Patient came in from home where she was discharged previously on hospice, but patient has been having ongoing deterioration with poor oral intake. Patient was previously recommended to have PEG tube placed, but family at this time was against PEG tube placement. Today patient's family decided that they would like to proceed with PEG tube placement to ensure patient's get proper nutrition. Plan: IV fluids N.p.o. Will require peg tube placement GI consulted, appreciate recommendations Refer to registered dietitian and speech therapy #Hx of DM2 Last A1c was 4.8 05/2024 Plan: Blood glucose checks every 6 ISS glucose checks and hypoglycemia protocol ordered Chronic diseases: #Hx of hypertension #Hx of hyperlipidemia #Hx of CVA with residual deficits Patient at this time has been having issues with swallowing therefore is n.p.o. and cannot be given any medications Pending home medication reconciliation and PEG tube placement before starting any home medications. Disposition: Patient admitted to med surg for failure to thrive requiring PEG tube. Diet: NPO GI prophylaxis: not indicated DVT prophylaxis: lovenox Code: Full Case disclosed with Attending Dr. Scarlet Tellez PGY1 Disclaimer: Even though this this note was dictated by speech recognition and even though it was carefully revised there may still be minor errors in bobtailer due to voice recognition software. Attending Provider Attestation/Addendum I, Jennifer Novak, , attest that I was physically present for the julio portions of the service and evaluated the patient with the resident and I reviewed and discussed the case with the resident and agree with the resident's findings and plans of care as documented above Patient is a 74-year-old female past medical history of type 2 diabetes, hypertension, hyperlipidemia and CVA with right-sided hemiplegia who presented to the ED due to concern of chest pain and poor oral intake. Patient was brought in from home and is under hospice care. Patient was recently discharged home on hospice after family decided not to place a PEG tube due to failure to thrive. Patient is ANO x 1 and complains of some dull chest pain that has since resolved upon presentation. She is noted to have pressure ulcers on right lateral region of her coccyx and ischial region. They do not appear to be infected. Patient also has some pressure ulcers on her right lateral metatarsal. . Patient appears dehydrated and received 2L of NS in the ED. Lactic acid was elevated on admission. Daughter/ Decision maker was contacted on admission and states that her and her family wish for patient to have PEG tube placed. Will admit to med/surg for failure to thrive. Will consult GI for PEG tube. Will keep patient NPO and continue with IV abx. Will place wound care consult.
[2024-08-15] MEDS: DOXYCYCLINE INJ 100 MG in SODIUM CHLORIDE 0.9% (POP) 100 ML IV (01:30)
[2024-08-15] MEDS: PIPER/TAZO 3.375 GM PREMIX 3.375 GM/50 ML BAG IV (01:58)
[2024-08-15] MEDS: MORPHINE SULF INJ 10 MG/ML VIAL IVP (04:18)
[2024-08-15] MEDS: SODIUM CHLORIDE 0.9% 1000 ML 1,000 ML 75 ML IV (04:18)
[2024-08-15 08:36] LABS: Basophils % (Auto) 0 % (0-2.5); Eosinophils % (Auto) 0 % (0-10); Hematocrit 28.4 % (36.0-46.0); Hemoglobin 9.9 g/dL (12.0-16.0); Immature Granulocytes % (Auto) 1 % (0-0); Immature Granulocytes Auto 0.09 Thou/mm3 (0.00-0.00); Lymphocytes # (Auto) 2.1 Thou/mm3 (1.0-4.8); Lymphocytes % (Auto) 14 % (10-50); Mean Corpuscular HGB Conc 34.9 g/dl (31.0-37.0); Mean Corpuscular Hemoglobin 29.9 pg (25.0-35.0); Mean Corpuscular Volume 86 fL (80-100); Monocytes # (Auto) 0.7 Thou/mm3 (0.0-0.8); Monocytes % (Auto) 5 % (0-12); Neutrophils # (Auto) 11.8 Thou/mm3 (1.8-7.7); Neutrophils % (Auto) 80 % (37-80); Nucleated Red Blood Cell % 0 /100 WBC (0); Platelet Count 351 Thou/mm3 (140-440); RDW Standard Deviation 49.5 fL (36.4-46.3); Red Blood Count 3.31 Miln/mm3 (4.00-5.20); White Blood Count 14.7 Thou/mm3 (3.6-11.0)
[2024-08-15 08:54] LABS: Alanine Aminotransferase 7 U/L (10-49); Albumin, Serum 2.5 gm/dL (3.4-4.8); Albumin/Globulin Ratio 0.8 (1.2-2.2); Alkaline Phosphatase 104 U/L (46-116); Anion Gap 13 (7-16); Aspartate Amino Transferase 21 U/L (0-34); BUN/Creatinine Ratio 32 Ratio (12-20); Bilirubin,Total 0.5 mg/dL (0.3-1.2); Blood Urea Nitrogen 19 mg/dL (9-23); Calcium 7.5 mg/dL (8.3-10.6); Calcium (Corrected) 8.7 mg/dL (8.5-10.1); Chloride 105 mMol/L (98-107); Creatinine (Component) 0.6 mg/dL (0.6-1.3); Globulin 3.3 gm/dL (2.3-3.5); Glucose 91 mg/dL (74-106); Osmolality,Calculated 289 (275-295); Potassium 3.3 mMol/L (3.4-5.1); Sodium 144 mMol/L (136-145); Total Protein 5.8 gm/dL (5.7-8.2); eGFR > 60 See Note
--- NOTE | 2024-08-15 09:17 | ESPR_ITS ---
<Statement entered by Paolo Welsh MD - 08/15/24 21:53> I discussed with and supervised the statistics intern physician involved in the care of this patient. Patient assessment and plan was discussed with entire medicine team, including my attending. I agree with the assessment and plan as documented by statistics intern doctor. Patient care was discussed with my attending physician Dr.Tingle Paolo Welsh, PGY-2 Documentation for date of: 08/15/24 Subjective Subjective Interval history: Patient is AO x 2 but she is aware why she is in the hospital and she reports that she does not eat because she does not have an appetite. After discussion with patient with Dr. Barclay, Dr. Welsh, Dr. Storm, Dr. Deshpande patient decided to switch her CODE STATUS to the DNR/DNI. Initially patient declined the PEG tube placement, but after conversation and explanation she agreed. Pending PEG tube placement by GI specialist. Per family member, Cinthia she will not be able to care for her at home and would like for the patient to be placed at SNF. We asked Cinthia to come to have conversation regarding further plan and goals of care. Exam Vital Signs Temp Pulse Resp BP Pulse Ox O2 Del Method 97.6 F 97 18 96/59 L 98 Room Air 08/15/24 08:00 08/15/24 08:00 08/15/24 08:00 08/15/24 08:00 08/15/24 08:00 08/15/24 08:00 Narrative Exam Gen: Well-developed and well-nourished. HEENT: NCAT, PERRLA, EOMI, MMM, anicteric conjunctivae. CVS: normal S1 and S2. RRR. No M/R/G. Resp: CTA B/L. No rhonchi, rales, crackles or wheezing. Abd: soft, non-tender, non-distended. BS+ in all 4 quadrants. MSK: Good ROM in BUE & BLE. Two pressure ulcers located on the lateral aspect of the right foot measuring around 1 cm in circumference both. Pressure ulcer located on the right buttocks laterally measuring around 2 to 3 cm in circumference and coccygeal ulcer measuring around 4 to 5 m in circumference. Neuro: Right facial droop. Right hemiparesis. Able to follow commands. Alert and oriented x2. Psych: appropriate mood and affect. Objective Labs 08/15/24 07:47 08/15/24 07:47 Labs: Laboratory Results - last 24 hr 08/14/24 08/14/24 08/15/24 20:05 20:20 00:20 WBC 11.7 H RBC 4.01 Hgb 12.1 Hct 36.5 MCV 91 MCH 30.2 MCHC 33.2 RDW Std Deviation 53.1 H Plt Count 354 Neut % (Auto) 88 H Lymph % (Auto) 8 L [place] % (Auto) 4 Eos % (Auto) 0 Baso % (Auto) 0 Neut # (Auto) 10.2 H Lymph # (Auto) 0.9 L [place] # (Auto) 0.5 Eos # (Auto) 0.0 Baso # (Auto) 0.0 Immature Gran # (Auto) 0.07 H Absolute Nucleated RBC 0.00 Immature Gran % 1 H Nucleated RBC % 0 PT 11.9 INR 1.1 APTT 22.9 Sodium 142 Potassium 4.0 Chloride 100 Carbon Dioxide 26.3 Anion Gap 16 BUN 18 Creatinine 0.7 Estim Creat Clear Calc 57.5 L eGFR > 60 BUN/Creatinine Ratio 26 H Glucose 87 Calculated Osmolality 284 Lactic Acid 2.3 H 1.5 Calcium 8.3 Corrected Calcium 9.1 Magnesium 1.6 Total Bilirubin 0.7 AST 31 ALT 8 L Alkaline Phosphatase 119 H Lactate Dehydrogenase 342 H Troponin I < 0.020 C-Reactive Prot, Quant 13.9 H B-Natriuretic Peptide 88 Total Protein 7.0 Albumin 3.0 L Globulin 4.0 H Albumin/Globulin Ratio 0.8 L Procalcitonin 0.17 Ur Collection Type Catheter Urine Color Yellow Urine Clarity Clear Urine pH 5.5 Ur Specific [place] 1.031 Urine Protein 1+ A Urine Glucose (UA) Negative Urine Ketones 1+ A Urine Blood Negative Urine Nitrite Negative Urine Bilirubin 1+ A Urine Urobilinogen (Auto) 6.0 Ur Leukocyte Esterase Negative Urine RBC 0 Urine WBC 0 Ur Squamous Epith Cells 1 Urine Bacteria None Urine Opiates Screen Positive A Urine Fentanyl Screen Negative Ur Barbiturates Screen Negative U Amphetamin/Meth Scrn Negative U Benzodiazepines Scrn Negative U Cocaine Metab Screen Negative U Marijuana (THC) Screen Negative 08/15/24 07:47 WBC 14.7 H RBC 3.31 L Hgb 9.9 L D Hct 28.4 L MCV 86 MCH 29.9 MCHC 34.9 RDW Std Deviation 49.5 H Plt Count 351 Neut % (Auto) 80 Lymph % (Auto) 14 [place] % (Auto) 5 Eos % (Auto) 0 Baso % (Auto) 0 Neut # (Auto) 11.8 H Lymph # (Auto) 2.1 [place] # (Auto) 0.7 Eos # (Auto) 0.0 Baso # (Auto) 0.0 Immature Gran # (Auto) 0.09 H Absolute Nucleated RBC 0.00 Immature Gran % 1 H Nucleated RBC % 0 PT INR APTT Sodium 144 Potassium 3.3 L D Chloride 105 Carbon Dioxide 26.0 Anion Gap 13 BUN 19 Creatinine 0.6 Estim Creat Clear Calc 67.0 eGFR > 60 BUN/Creatinine Ratio 32 H Glucose 91 Calculated Osmolality 289 Lactic Acid Calcium 7.5 L Corrected Calcium 8.7 Magnesium Total Bilirubin 0.5 AST 21 ALT 7 L Alkaline Phosphatase 104 Lactate Dehydrogenase Troponin I C-Reactive Prot, Quant B-Natriuretic Peptide Total Protein 5.8 Albumin 2.5 L D Globulin 3.3 Albumin/Globulin Ratio 0.8 L Procalcitonin Ur Collection Type Urine Color Urine Clarity Urine pH Ur Specific [place] Urine Protein Urine Glucose (UA) Urine Ketones Urine Blood Urine Nitrite Urine Bilirubin Urine Urobilinogen (Auto) Ur Leukocyte Esterase Urine RBC Urine WBC Ur Squamous Epith Cells Urine Bacteria Urine Opiates Screen Urine Fentanyl Screen Ur Barbiturates Screen U Amphetamin/Meth Scrn U Benzodiazepines Scrn U Cocaine Metab Screen U Marijuana (THC) Screen Quality Measures Quality Measures sepsis Current suspected stage: ruled out Possible source: wound Blood cultures ordered: yes Antibiotic ordered: No Advance care planning discussed with:: other Assessment & Plan Assessment Current Active Medications: Generic Name Dose Route Start Last Admin Trade Name Freq PRN Reason Stop Dose Admin Dextrose 25 ml 08/15/24 01:19 Dextrose 50%-Water Inj 50 Ml Syringe IV 09/14/24 01:18 Q15MIN PRN BG 50-70 responsive npo pt Dextrose 50 ml 08/15/24 01:19 Dextrose 50%-Water Inj 50 Ml Syringe IV 09/14/24 01:18 Q15MIN PRN BG <50 OR BG <70 & pt unresponsive Enoxaparin Sodium 40 mg 08/15/24 09:00 Enoxaparin Sod Inj 40 Mg/0.4 Ml Syringe SC 08/29/24 08:59 QDAY MARYSE Glucagon 1 mg 06/05/25 01:19 Glucagon Inj 1 Mg Vial IM Q15MIN PRN BG <70, and no IV access Hydromorphone HCl 0.5 mg 08/14/24 23:45 08/15/24 00:06 Hydromorphone Inj 2 Mg/Ml Vial IVP 08/19/24 23:44 0.5 mg Q30MIN PRN Administration PAIN Sodium Chloride 1,000 mls @ 75 mls/hr 08/15/24 01:15 08/15/24 04:18 Ns IV 09/14/24 01:14 75 mls/hr .[id number] MARYSE Administration Insulin Human Lispro 0 unit 08/15/24 06:00 08/15/24 06:26 Insulin Lispro (Admelog) 1 Unit/0.01 Ml Unit SC 09/14/24 05:59 Not Given Q6HR [facility] Protocol Morphine Sulfate 1 mg 08/15/24 01:15 08/15/24 04:18 Morphine Sulf Inj 10 Mg/Ml Vial IVP 08/20/24 01:14 1 mg Q2H PRN Administration PAIN SCALE 4-10(Mod-Sev Ondansetron HCl 4 mg 08/15/24 01:15 Ondansetron Inj 2 Mg/Ml Inj 2 Ml IVP 09/14/24 01:14 Q6H PRN NAUSEA OR VOMITING Protocol Plan The patient is a 74-year-old female with past medical history of hypertension, DM2, hyperlipidemia, and CVA with residual deficits was admitted to the hospital on 08/15/2024for failure to thrive requiring PEG tube placement. #Failure to thrive Patient came in from home where she was discharged previously on hospice, but patient has been having ongoing deterioration with poor oral intake. Patient was previously recommended to have PEG tube placed, but family at this time was against PEG tube placement. Today patient's family decided that they would like to proceed with PEG tube placement to ensure patient's get proper nutrition. Plan: -IV fluids -N.p.o. -PEG tube placement pending -GI consulted, appreciate recommendations -Registered dietitian and speech therapy consulted, appreciate recs #Hx of DM2 Last A1c was 4.8 05/2024 Plan: -Blood glucose checks every 6 -ISS glucose checks and hypoglycemia protocol ordered #Hx of hypertension #Hx of hyperlipidemia #Hx of CVA with residual deficits Patient at this time has been having issues with swallowing therefore is n.p.o. and cannot be given any medications Pending home medication reconciliation and PEG tube placement before starting any home medications. Plan: - will hold BP meds for now due to normal blood pressure Disposition: med surg Diet: NPO GI prophylaxis: not indicated DVT prophylaxis: lovenox Code: Full Plan of care discussed with attending Dr. Barclay, PGY-[address] Welsh. Jolly Storm MD, PGY 1. Attending Provider Attestation/Addendum I have discussed and was present for the essential components of the history, physical examination, diagnosis, and treatment plan with the resident. I agree with the patient's care as documented by the resident and amended herein by me. Patrick Barclay, DO. Patient seen and evaluated this AM. No acute events overnight, vital signs stable, patient afebrile, labs largely unremarkable. This patient apparently presented to the ED for failure to thrive, demonstrating reduced p.o. intake and the inability of the patient's [id number] who is the patient's caregiver to provide further care for her in her home. The patient was previously on hospice however I think this was not appropriate, the family thought hospice would just come in and take care of her a few times a week and help out, however they did not understand the true meaning of hospice. As such, ongoing to remove the patient from hospice and the patient's family agrees however we will pursue SNF placement at time of discharge. We did speak with the patient's rucmsnal-eo-hic who will be at bedside tomorrow she states, we attempted to contact the patient's son to no avail. The patient does understand and does have capacity to make most of her medical decisions she is just difficult to understand due to previous stroke and difficulty speaking. Patient wishes to be DNR/DNI at this time stating I do not want to go to the ICU and do not want to be on a ventilator which is being changed and reflected in the EMR. The patient also would like to proceed with a PEG tube, gastroenterology has been consulted for this. Although this document has been carefully reviewed, there may still be some phonetic and other typographical errors. These errors are purely grammatical due to imperfections in the software program and should not be construed in any way to compromise the substance of the patient's medical care during this visit.
[2024-08-15] MEDS: ENOXAPARIN SOD INJ 40 MG/0.4 ML SYRINGE SC (09:31)
--- NOTE | 2024-08-15 11:39 | PC.DIETICIAN ---
Nutrition recommendations Patient is at significant risk for refeeding syndrome. After PEG tube placement, consider: 1. Glucerna 1.2 at 20 ml/hr x 24 hrs (do not advance) via PEG tube by pump. If no IV fluids, water flushes 30 ml/hr (or per MD). 2. Thiamine 100mg/day for 7 days; provide first dose at least 30 minutes before starting nutrition. 3.?? Multivitamins/Minerals. 4. Daily labs for P, K, and Mg; replace as needed. If no electrolytes disturbances after 24 hrs, advance 10 ml every 12 hrs to goal rate of 55 ml/hr x 24 hrs. Continue with water flushes 30 ml/hr (or per MD).
--- NOTE | 2024-08-15 12:12 | PC.SS ---
Patient appeared to be confused, she informed Cinthia, listed on the facesheet could be contacted for further information.
--- NOTE | 2024-08-15 12:21 | PC.SS ---
Initial assessment: patient is a 74-year old female admitted for failure to thrive. Patient was confused and informed Cinthia could be contacted. Information obtained by patient's daughter in law, Cinthia Ann. Cinthia informs the patient lives at home with her and her children. Demographic information was confirmed. Cinthia states she will become patient's IH[facility] caregiver with 150 hrs being provided to the patient starting in September. Per Cinthia, the patient was previously aligned with [facility] services. Cinthia informs the patient requires assistance with transferring and completing her ADL's in which she does. Per Cinthia, the patient has the following DME at home; hospital bed, aniceto chair, mike lift and bedside commode. Cinthia informs she does not have POA over the patient, however has been the patient's emergency contact as patient resides at home with her and patient's children not really involved in patient's care. Per Cinthia, she informs the patient is not seen by a primary care provider, only the nurses via [place]. Cinthia agrees to continue being the patient's emergency contact and alternate medical decision maker. Per Cinthia she would like to search for SNF placement for the patient as she will require more care including PEG tube management. Cinthia informs a prefers [facility] in [place] if appropriate. Patient will also require transportation services to be arranged at discharge. D/c plan: SNF Next of kin: Cinthia Ann
--- NOTE | 2024-08-15 14:23 | PC.SS ---
Addendum entered by HARSH Burroughs 08/15/24 15:13: SS follow up: [facility] [place] (Gregory Burns) informed they can accept the patient, pending 3-midnight inpatient stay. Booked on [address] Contact to facility is Angeli Kothari [phone]. Angeli informs they can accept the patient over the weekend if she is ready for d/c. Addendum entered by HARSH Burroughs 08/15/24 15:04: PASRR completed. Addendum entered by HARSH Burroughs 08/15/24 14:24: Rounding note: per attending Dr. Barclay, patient was d/c from hospice with no plan to continue the services. Family is agreeable to SNF placement which inquiry has been sent via [employer]. Original Note: SNF inquiry sent via [employer]. Pending responses.
[2024-08-15] MEDS: DEXTROSE 5%-LACTATED RINGERS 1,000 ML 75 ML IV (18:15)
--- NOTE | 2024-08-15 21:46 | PD.IMCONS ---
HPI Data of Consult Requesting Physician: Des Barclay DO Primary Care Provider: Physician No Primary/Family Consult Narrative Reason for consult: Failure to thrive evaluation for PEG placement History of present illness: 74 years old female who has failure to thrive not been eating has been having poor oral intake was brought in by ambulance for multiplicity of complaints Patient was at hospice at home but the change in status because of patient's poor health and now she is a full code Family refused PEG placement in the past but now have agreed to have PEG placement for nutritional support and giving her the medication She is a very poor historian because of the previous CVA she has dysarthria and I cannot understand Patient has a history of essential hypertension diabetes mellitus type 2 and hyperlipidemia cc:: cc: Des Barclay DO Review of Systems Review of Systems ROS Unobtainable: unobtainable due to medical condition Past Medical History Surgical History OTHER SURGICAL HX: As in the history of present illness Meds Home Medications and Allergies Allergies Allergy/AdvReac Type Severity Reaction Status Date / Time No Known Allergies Allergy Verified 04/08/24 21:34 Exam Vital Signs Temp Pulse Resp BP Pulse Ox O2 Del Method 97.2 F 73 18 139/67 H 98 Room Air 08/15/24 20:00 08/15/24 20:00 08/15/24 20:00 08/15/24 20:00 08/15/24 20:00 08/15/24 20:00 Constitutional Comments: Chronically ill-appearing and weak Routine Respiratory Exam Comments: Normal to auscultation Routine Abdominal Exam Comments: Soft nontender positive bowel sounds Results Labs 08/15/24 07:47 08/15/24 07:47 Labs: Short CBC 08/15/24 Range/Units 07:47 WBC 14.7 H (3.6-11.0) Thou/mm3 Hgb 9.9 L D (12.0-16.0) g/dL Hct 28.4 L (36.0-46.0) % Plt Count 351 (140-440) Thou/mm3 BMP 08/15/24 07:47 Sodium 144 Potassium 3.3 L D Chloride 105 Carbon Dioxide 26.0 BUN 19 Creatinine 0.6 Glucose 91 Calcium 7.5 L Liver Function 08/15/24 Range/Units 07:47 Total Bilirubin 0.5 (0.3-1.2) mg/dL AST 21 (0-34) U/L ALT 7 L (10-49) U/L Alkaline Phosphatase 104 (46-116) U/L Albumin 2.5 L D (3.4-4.8) gm/dL Assessment and Plan Additional Assessment & Plan Additional Plan: # Failure to thrive Consent will be obtained from the family for placement of a PEG tube via fiberoptic esophagogastroduodenoscopy under intravenous moderate sedation tentatively scheduled for tomorrow N.p.o. midnight tonight Ancef 1 g IV piggyback on-call to endoscopy for the procedure Please do not give the Ancef tonight Other medical problems include Essential hypertension Diabetes mellitus type 2 Hyperlipidemia CVA Thank you very much for the opportunity to participate in the care of this patient
[2024-08-16] VITALS (17 sets, daily range): BP systolic 124–179; BP diastolic 59–90; PULSE 75–109; RESP 16–100; TEMP 36.2–36.9; O2SAT 92–100
[2024-08-16 06:00] LABS: Basophils % (Auto) 0 % (0-2.5); Eosinophils % (Auto) 0 % (0-10); Hematocrit 29.6 % (36.0-46.0); Hemoglobin 10.1 g/dL (12.0-16.0); Immature Granulocytes % (Auto) 1 % (0-0); Immature Granulocytes Auto 0.09 Thou/mm3 (0.00-0.00); Lymphocytes # (Auto) 1.7 Thou/mm3 (1.0-4.8); Lymphocytes % (Auto) 13 % (10-50); Mean Corpuscular HGB Conc 34.1 g/dl (31.0-37.0); Mean Corpuscular Hemoglobin 30.5 pg (25.0-35.0); Mean Corpuscular Volume 89 fL (80-100); Monocytes # (Auto) 0.6 Thou/mm3 (0.0-0.8); Monocytes % (Auto) 5 % (0-12); Neutrophils # (Auto) 10.8 Thou/mm3 (1.8-7.7); Neutrophils % (Auto) 81 % (37-80); Nucleated Red Blood Cell % 0 /100 WBC (0); Platelet Count 368 Thou/mm3 (140-440); RDW Standard Deviation 51.4 fL (36.4-46.3); Red Blood Count 3.31 Miln/mm3 (4.00-5.20); White Blood Count 13.3 Thou/mm3 (3.6-11.0)
[2024-08-16 06:39] LABS: Alanine Aminotransferase 7 U/L (10-49); Albumin, Serum 2.6 gm/dL (3.4-4.8); Albumin/Globulin Ratio 0.8 (1.2-2.2); Alkaline Phosphatase 105 U/L (46-116); Anion Gap 10 (7-16); Aspartate Amino Transferase < 10 U/L (0-34); BUN/Creatinine Ratio 22 Ratio (12-20); Bilirubin,Total 0.6 mg/dL (0.3-1.2); Blood Urea Nitrogen 13 mg/dL (9-23); Calcium 8.2 mg/dL (8.3-10.6); Calcium (Corrected) 9.3 mg/dL (8.5-10.1); Carbon Dioxide 27.3 mMol/L (20.0-31.0); Chloride 103 mMol/L (98-107); Creatinine (Component) 0.6 mg/dL (0.6-1.3); Globulin 3.2 gm/dL (2.3-3.5); Glucose 117 mg/dL (74-106); Osmolality,Calculated 280 (275-295); Potassium 2.8 mMol/L (3.4-5.1); Sodium 140 mMol/L (136-145); Total Protein 5.8 gm/dL (5.7-8.2); eGFR > 60 See Note
--- NOTE | 2024-08-16 07:48 | ESPR_ITS ---
<Statement entered by Paolo Welsh MD - 08/17/24 14:41> I discussed with and supervised the epidemiology internship physician involved in the care of this patient. Patient assessment and plan was discussed with entire medicine team, including my attending. I agree with the assessment and plan as documented by epidemiology internship doctor. Patient care was discussed with my attending physician Dr. Scarlet Welsh, PGY-2 Documentation for date of: 08/16/24 Subjective Subjective Interval history: No acute overnight events. Reports feeling healthy, however will continue NPO for PEG tube later this day. Denies fever, chills, headaches, chest pain, sob, cough, GI or urinary symptoms. BP 140/73, HR 104. Mag, K and Phos are low and repleated. CBC at baseline, WBC imporving. Exam Vital Signs Temp Pulse Resp BP Pulse Ox O2 Del Method 98.5 F 98 18 145/73 H 99 Room Air 08/16/24 04:00 08/16/24 07:37 08/16/24 07:37 08/16/24 04:00 08/16/24 04:00 08/16/24 04:00 Narrative Exam Gen: Well-developed and well-nourished. HEENT: NCAT, PERRLA, EOMI, MMM, anicteric conjunctivae. CVS: normal S1 and S2. RRR. No M/R/G. Resp: CTA B/L. No rhonchi, rales, crackles or wheezing. Abd: soft, non-tender, non-distended. BS+ in all 4 quadrants. MSK: Good ROM in BUE & BLE. Two pressure ulcers located on the lateral aspect of the right foot measuring around 1 cm in circumference both. Pressure ulcer located on the right buttocks laterally measuring around 2 to 3 cm in circumference and coccygeal ulcer measuring around 4 to 5 m in circumference. Neuro: Right facial droop. Right hemiparesis. Able to follow commands. Alert and oriented x2. Psych: appropriate mood and affect. Objective Labs 08/17/24 05:10 08/17/24 05:10 Labs: Laboratory Results - last 24 hr 08/15/24 08/16/24 07:47 05:19 WBC 14.7 H 13.3 H RBC 3.31 L 3.31 L Hgb 9.9 L D 10.1 L Hct 28.4 L 29.6 L MCV 86 89 MCH 29.9 30.5 MCHC 34.9 34.1 RDW Std Deviation 49.5 H 51.4 H Plt Count 351 368 Neut % (Auto) 80 81 H Lymph % (Auto) 14 13 [place] % (Auto) 5 5 Eos % (Auto) 0 0 Baso % (Auto) 0 0 Neut # (Auto) 11.8 H 10.8 H Lymph # (Auto) 2.1 1.7 [place] # (Auto) 0.7 0.6 Eos # (Auto) 0.0 0.0 Baso # (Auto) 0.0 0.0 Immature Gran # (Auto) 0.09 H 0.09 H Absolute Nucleated RBC 0.00 0.00 Immature Gran % 1 H 1 H Nucleated RBC % 0 0 Sodium 144 140 Potassium 3.3 L D 2.8 L D Chloride 105 103 Carbon Dioxide 26.0 27.3 Anion Gap 13 10 BUN 19 13 Creatinine 0.6 0.6 Estim Creat Clear Calc 67.0 64.0 eGFR > 60 > 60 BUN/Creatinine Ratio 32 H 22 H Glucose 91 117 H Calculated Osmolality 289 280 Calcium 7.5 L 8.2 L Corrected Calcium 8.7 9.3 Total Bilirubin 0.5 0.6 AST 21 < 10 ALT 7 L 7 L Alkaline Phosphatase 104 105 Total Protein 5.8 5.8 Albumin 2.5 L D 2.6 L Globulin 3.3 3.2 Albumin/Globulin Ratio 0.8 L 0.8 L Quality Measures Quality Measures sepsis Current suspected stage: ruled out Possible source: wound Blood cultures ordered: yes Antibiotic ordered: Yes Advance care planning discussed with:: patient Assessment & Plan Assessment Current Active Medications: Generic Name Dose Route Start Last Admin Trade Name Freq PRN Reason Stop Dose Admin Dextrose 25 ml 08/15/24 01:19 Dextrose 50%-Water Inj 50 Ml Syringe IV 09/14/24 01:18 Q15MIN PRN BG 50-70 responsive npo pt Dextrose 50 ml 08/15/24 01:19 Dextrose 50%-Water Inj 50 Ml Syringe IV 09/14/24 01:18 Q15MIN PRN BG <50 OR BG <70 & pt unresponsive Enoxaparin Sodium 40 mg 08/15/24 09:00 08/15/24 09:31 Enoxaparin Sod Inj 40 Mg/0.4 Ml Syringe SC 08/29/24 08:59 40 mg QDAY MARYSE Administration Glucagon 1 mg 08/15/24 01:19 Glucagon Inj 1 Mg Vial IM Q15MIN PRN BG <70, and no IV access Hydromorphone HCl 0.5 mg 08/14/24 23:45 08/15/24 00:06 Hydromorphone Inj 2 Mg/Ml Vial IVP 08/19/24 23:44 0.5 mg Q30MIN PRN Administration PAIN Insulin Human Lispro 0 unit 08/15/24 06:00 08/16/24 06:30 Insulin Lispro (Admelog) 1 Unit/0.01 Ml Unit SC 09/14/24 05:59 Not Given Q6HR MARYSE Protocol Morphine Sulfate 1 mg 08/15/24 01:15 08/15/24 04:18 Morphine Sulf Inj 10 Mg/Ml Vial IVP 08/20/24 01:14 1 mg Q2H PRN Administration PAIN SCALE 4-10(Mod-Sev Ondansetron HCl 4 mg 08/15/24 01:15 Ondansetron Inj 2 Mg/Ml Inj 2 Ml IVP 09/14/24 01:14 Q6H PRN NAUSEA OR VOMITING Protocol Plan The patient is a 74-year-old female with past medical history of hypertension, DM2, hyperlipidemia, and CVA with residual deficits was admitted to the hospital on 08/15/2024for failure to thrive requiring PEG tube placement. BP 145/73, K 2.8, WBC 13.3 improv, Hgb 10.1 #Failure to thrive Patient came in from home where she was discharged previously on hospice, but patient has been having ongoing deterioration with poor oral intake. Patient was previously recommended to have PEG tube placed, but family at this time was against PEG tube placement. Today patient's family decided that they would like to proceed with PEG tube placement to ensure patient's get proper nutrition. Plan: -IV fluids -N.p.o. -PEG tube placement pending -GI consulted, appreciate recommendations -Registered dietitian and speech therapy consulted, appreciate recs #Hx of DM2 Last A1c was 4.8 05/2024 Plan: -Blood glucose checks every 6 -ISS glucose checks and hypoglycemia protocol ordered Electrolyte abnormalities 08/16/2024 potassium 2.8, magnesium 1.3, phosphorus 1.5 ? Repleted ? Daily labs #Hx of hypertension #Hx of hyperlipidemia #Hx of CVA with residual deficits Patient at this time has been having issues with swallowing therefore is n.p.o. and cannot be given any medications Pending home medication reconciliation and PEG tube placement before starting any home medications. Plan: - will hold BP meds for now due to normal blood pressure Disposition: med surg Diet: NPO GI prophylaxis: not indicated DVT prophylaxis: lovenox Code: Full Case was discussed with attending physician and senior resident. Alysia Davies DO PGYI Attending Provider Attestation/Addendum I, Jennifer Novak DO, attest that I was physically present for the julio portions of the service and evaluated the patient with the resident and I reviewed and discussed the case with the resident and agree with the resident's findings and plans of care as documented above Patient seen and eval this a.m. She is scheduled for PEG tube placement today. Patient complaining of hunger. She is however, she is n.p.o. for endoscopy today. Pending speech evaluation for swallow evaluation so that patient can have pleasure feedings. Patient will be discharged to SNF on discharge. Will start patient on her feedings once cleared by GI. Advance feedings as per dietary recommendations. Patient appears to be at baseline mental status.No acute events overnight otherwise. Patient has been afebrile.
--- NOTE | 2024-08-16 07:55 | PC.NURSE ---
at 0755, this nurse spoke with the daughter (Cinthia) of the patient, regarding consent for the patients procedure of a peg tube placement, Cinthia was notified of the procedure and Cinthia verbally consented to the procedure via telephone with Dimple MAYA as a witness. Consent signed and is placed in Patient's paper chart.
[2024-08-16] MEDS: MORPHINE SULF INJ 10 MG/ML VIAL IVP (08:33)
[2024-08-16] MEDS: POTASSIUM CHL 10 mEq IVPB 10 MEQ/100 ML BAG 75 MEQ IV ×6 (08:38→17:58)
[2024-08-16 10:51] LABS: Magnesium 1.3 mg/dL (1.6-2.6); Phosphorous 1.5 mg/dL (2.4-5.1)
[2024-08-16] MEDS: Magnesium Sulfate 4 GM Ivpb 4 GM/50 ML BAG IV (14:41)
[2024-08-16] MEDS: ceFAZolin/D5W 1 GM IVPB 1 GM/50 ML BAG IV (16:14)
--- NOTE | 2024-08-16 17:10 | SUR.PHASEI ---
1710: abdominal binder placed at this time.
--- NOTE | 2024-08-16 17:28 | SUR.PHASEI ---
1728: pt transfer to room 377 via gurney. pt arousable but drifts back to sleep, per rn staff its her baseline. no s/s of resp. distress or discomfort. no s/s of pain or discomfort. peg tube in place clean, dry and intact. abdominal binder in place.
[2024-08-16] MEDS: NAPH,KPH MBDB 1 PACKET (1.5 GM) PO (17:57)
[2024-08-17] VITALS: BP 134/97; PULSE 85; RESP 18; TEMP 36.1; O2SAT 98
[2024-08-17] MEDS: POTASSIUM CHL 10 mEq IVPB 10 MEQ/100 ML BAG 100 MEQ IV ×2 (00:09→01:42)
[2024-08-17 04:00] VITALS: BP 126/63; PULSE 85; RESP 18; TEMP 37; O2SAT 97
[2024-08-17 05:58] LABS: Basophils % (Auto) 0 % (0-2.5); Eosinophils % (Auto) 0 % (0-10); Hemoglobin 9.5 g/dL (12.0-16.0); Immature Granulocytes % (Auto) 1 % (0-0); Lymphocytes # (Auto) 1.8 Thou/mm3 (1.0-4.8); Lymphocytes % (Auto) 11 % (10-50); Mean Corpuscular HGB Conc 35.2 g/dl (31.0-37.0); Mean Corpuscular Hemoglobin 30.4 pg (25.0-35.0); Mean Corpuscular Volume 86 fL (80-100); Monocytes # (Auto) 0.5 Thou/mm3 (0.0-0.8); Monocytes % (Auto) 3 % (0-12); Neutrophils % (Auto) 85 % (37-80); Nucleated Red Blood Cell % 0 /100 WBC (0); Platelet Count 320 Thou/mm3 (140-440); RDW Standard Deviation 49.3 fL (36.4-46.3); Red Blood Count 3.13 Miln/mm3 (4.00-5.20); White Blood Count 15.4 Thou/mm3 (3.6-11.0)
[2024-08-17 06:24] LABS: Alanine Aminotransferase < 7 U/L (10-49); Albumin, Serum 2.4 gm/dL (3.4-4.8); Albumin/Globulin Ratio 0.8 (1.2-2.2); Alkaline Phosphatase 101 U/L (46-116); Anion Gap 9 (7-16); BUN/Creatinine Ratio 25 Ratio (12-20); Bilirubin,Total 0.6 mg/dL (0.3-1.2); Blood Urea Nitrogen 10 mg/dL (9-23); Calcium (Corrected) 9.3 mg/dL (8.5-10.1); Carbon Dioxide 26.1 mMol/L (20.0-31.0); Chloride 103 mMol/L (98-107); Creatinine (Component) 0.4 mg/dL (0.6-1.3); Estimated Creatinine Clearance 95.9 mL/min (>60); Globulin 2.9 gm/dL (2.3-3.5); Glucose 80 mg/dL (74-106); Osmolality,Calculated 273 (275-295); Potassium 3.5 mMol/L (3.4-5.1); Sodium 138 mMol/L (136-145); Total Protein 5.3 gm/dL (5.7-8.2); eGFR > 60 See Note
[2024-08-17 08:00] VITALS: BP 128/65; PULSE 85; RESP 18; TEMP 36.1; O2SAT 100
[2024-08-17 09:01] VITALS: BMI 21.9
[2024-08-17] MEDS: ENOXAPARIN SOD INJ 40 MG/0.4 ML SYRINGE SC (09:51)
[2024-08-17] MEDS: THIAMINE INJ 100 MG/ML VIAL 2 ML IV (09:51)
[2024-08-17] MEDS: MORPHINE SULF INJ 10 MG/ML VIAL IVP ×2 (11:28→23:11)
[2024-08-17 11:52] VITALS: BP 127/75; PULSE 91; RESP 19; TEMP 36.6; O2SAT 97
--- NOTE | 2024-08-17 14:07 | ESPR_ITS ---
<Statement entered by Paolo Welsh MD - 08/18/24 11:58> Patient underwent PEG tube placement yesterday by Dr. Guillaume, has been restarted on tube feed. Patient requesting to eat by mouth, will see if able to tolerate pleasure feeding. Will advance feeding and d/c patient to SNF, anticipating discharge within 24-48 hours. I discussed with and supervised the director internal control physician involved in the care of this patient. Patient assessment and plan was discussed with entire medicine team, including my attending. I agree with the assessment and plan as documented by director internal control doctor. Patient care was discussed with my attending physician Dr. Scarlet Welsh, PGY-2 Documentation for date of: 08/17/24 Subjective Subjective Interval history: Patient was seen and examined by the bedside. No acute overnight events. Patient is asking for water, food. She was able to swallow pudding, water sips. She was started on tube feeds. Speech therapy recommended pleasure feedings, ice chip and water seeps as needed. Patient was started on thiamine due to the risk of refeeding syndrome. Pending SNF authorization. Exam Vital Signs Temp Pulse Resp BP Pulse Ox O2 Del Method O2 Flow Rate 97.9 F 91 19 127/75 97 Room Air 3 08/17/24 11:52 08/17/24 11:52 08/17/24 11:52 08/17/24 11:52 08/17/24 11:52 08/17/24 11:52 08/16/24 16:45 Narrative Exam Gen: Well-developed and well-nourished. HEENT: NCAT, PERRLA, EOMI, MMM, anicteric conjunctivae. CVS: normal S1 and S2. RRR. No M/R/G. Resp: CTA B/L. No rhonchi, rales, crackles or wheezing. Abd: soft, non-tender, non-distended. BS+ in all 4 quadrants. MSK: Good ROM in BUE & BLE. Two pressure ulcers located on the lateral aspect of the right foot measuring around 1 cm in circumference both. Pressure ulcer located on the right buttocks laterally measuring around 2 to 3 cm in circumference and coccygeal ulcer measuring around 4 to 5 m in circumference. Neuro: Right facial droop. Right hemiparesis. Able to follow commands. Alert and oriented x2. Psych: appropriate mood and affect. Objective Labs 08/18/24 08:15 08/18/24 08:15 Labs: Laboratory Results - last 24 hr 08/17/24 05:10 WBC 15.4 H RBC 3.13 L Hgb 9.5 L Hct 27.0 L MCV 86 MCH 30.4 MCHC 35.2 RDW Std Deviation 49.3 H Plt Count 320 D Neut % (Auto) 85 H Lymph % (Auto) 11 [place] % (Auto) 3 Eos % (Auto) 0 Baso % (Auto) 0 Neut # (Auto) 13.0 H Lymph # (Auto) 1.8 [place] # (Auto) 0.5 Eos # (Auto) 0.0 Baso # (Auto) 0.0 Immature Gran # (Auto) 0.10 H Absolute Nucleated RBC 0.00 Immature Gran % 1 H Nucleated RBC % 0 Sodium 138 Potassium 3.5 D Chloride 103 Carbon Dioxide 26.1 Anion Gap 9 BUN 10 Creatinine 0.4 L Estim Creat Clear Calc 95.9 eGFR > 60 BUN/Creatinine Ratio 25 H Glucose 80 Calculated Osmolality 273 L Calcium 8.0 L Corrected Calcium 9.3 Total Bilirubin 0.6 ALT < 7 L Alkaline Phosphatase 101 Total Protein 5.3 L Albumin 2.4 L Globulin 2.9 Albumin/Globulin Ratio 0.8 L Quality Measures Quality Measures sepsis Current suspected stage: ruled out Possible source: wound Blood cultures ordered: yes Antibiotic ordered: No Advance care planning discussed with:: patient and other Assessment & Plan Assessment Current Active Medications: Generic Name Dose Route Start Last Admin Trade Name Freq PRN Reason Stop Dose Admin Dextrose 25 ml 08/15/24 01:19 Dextrose 50%-Water Inj 50 Ml Syringe IV 09/14/24 01:18 Q15MIN PRN BG 50-70 responsive npo pt Dextrose 50 ml 08/15/24 01:19 Dextrose 50%-Water Inj 50 Ml Syringe IV 09/14/24 01:18 Q15MIN PRN BG <50 OR BG <70 & pt unresponsive Enoxaparin Sodium 40 mg 08/15/24 09:00 08/17/24 09:51 Enoxaparin Sod Inj 40 Mg/0.4 Ml Syringe SC 08/29/24 08:59 40 mg QDAY MARYSE Administration Glucagon 1 mg 08/15/24 01:19 Glucagon Inj 1 Mg Vial IM Q15MIN PRN BG <70, and no IV access Hydromorphone HCl 0.5 mg 08/14/24 23:45 08/15/24 00:06 Hydromorphone Inj 2 Mg/Ml Vial IVP 08/19/24 23:44 0.5 mg Q30MIN PRN Administration PAIN Insulin Human Lispro 0 unit 08/15/24 06:00 08/17/24 11:25 Insulin Lispro (Admelog) 1 Unit/0.01 Ml Unit SC 09/14/24 05:59 Not Given Q6HR MARYSE Protocol Morphine Sulfate 1 mg 08/15/24 01:15 08/17/24 11:28 Morphine Sulf Inj 10 Mg/Ml Vial IVP 08/20/24 01:14 1 mg Q2H PRN Administration PAIN SCALE 4-10(Mod-Sev Ondansetron HCl 4 mg 08/15/24 01:15 Ondansetron Inj 2 Mg/Ml Inj 2 Ml IVP 09/14/24 01:14 Q6H PRN NAUSEA OR VOMITING Protocol Thiamine HCl 100 mg 08/18/24 09:00 Thiamine Inj 100 Mg/Ml Vial 2 Ml IVP 09/17/24 08:59 QDAY MARYSE Plan The patient is a 74-year-old female with past medical history of hypertension, DM2, hyperlipidemia, and CVA with residual deficits was admitted to the hospital on 08/15/2024for failure to thrive requiring PEG tube placement. BP 145/73, K 2.8, WBC 13.3 improv, Hgb 10.1 #Failure to thrive Patient came in from home where she was discharged previously on hospice, but patient has been having ongoing deterioration with poor oral intake. Patient was previously recommended to have PEG tube placed, but family at this time was against PEG tube placement. Today patient's family decided that they would like to proceed with PEG tube placement to ensure patient's get proper nutrition. Plan: -PEG tube placed 08/16 -Glucerna 1.2 at 20 ml/hr x 24 hrs (do not advance) via PEG tube by pump. If no IV fluids, water flushes 30 ml/hr -GI consulted, appreciate recommendations -Registered dietitian and speech therapy consulted, appreciate recs #Hx of DM2 Last A1c was 4.8 05/2024 Plan: -Blood glucose checks every 6 -ISS glucose checks and hypoglycemia protocol ordered Electrolyte abnormalities 08/16/2024 potassium 2.8, magnesium 1.3, phosphorus 1.5 ? Repleted ? Daily labs #Hx of hypertension #Hx of hyperlipidemia #Hx of CVA with residual deficits Patient at this time has been having issues with swallowing therefore is n.p.o. and cannot be given any medications Pending home medication reconciliation and PEG tube placement before starting any home medications. Plan: - will hold BP meds for now due to normal blood pressure Disposition: med surg Diet: Glucerna 1.2 GI prophylaxis: not indicated DVT prophylaxis: lovenox Code: Full Plan of care discussed with attending Dr. Novak, PGY-[address] Welsh. Jolly Storm MD, PGY 1. Attending Provider Attestation/Addendum Jennifer Patel, , attest that I was physically present for the julio portions of the service and evaluated the patient with the resident and I reviewed and discussed the case with the resident and agree with the resident's findings and plans of care as documented above Patient seen and eval this a.m. No acute events overnight. Patient to start pur?ed diet for pleasure feeds and to start PEG tube feeding. Advance as per dietitian recommendations. Will monitor for any refeeding syndrome. Anticipate discharge in the next 24 to 48 hours if patient tolerates PEG tube feedings well.
[2024-08-17 16:00] VITALS: BP 126/70; PULSE 86; RESP 18; TEMP 36.4; O2SAT 96
--- NOTE | 2024-08-17 16:16 | PC.SS ---
SS spoke to [facility], , stated that she will check with team on Monday to ensure if pt is discharged they will be able to continue PEG food feeding; SS left message for [facility],
--- NOTE | 2024-08-17 16:55 | PD.IMPROG ---
Documentation for date of: 08/17/24 Subjective Subjective Interval history: PEG site looks good Enteral feeding started at 20 cc an hour Tolerating it Dressing changed Exam Vital Signs Temp Pulse Resp BP Pulse Ox O2 Del Method O2 Flow Rate 97.6 F 86 18 126/70 96 Room Air 3 08/17/24 16:00 08/17/24 16:00 08/17/24 16:00 08/17/24 16:00 08/17/24 16:00 08/17/24 16:00 08/16/24 16:45 Objective Labs 08/17/24 05:10 08/17/24 05:10 Labs: Laboratory Results - last 24 hr 08/17/24 05:10 WBC 15.4 H RBC 3.13 L Hgb 9.5 L Hct 27.0 L MCV 86 MCH 30.4 MCHC 35.2 RDW Std Deviation 49.3 H Plt Count 320 D Neut % (Auto) 85 H Lymph % (Auto) 11 [place] % (Auto) 3 Eos % (Auto) 0 Baso % (Auto) 0 Neut # (Auto) 13.0 H Lymph # (Auto) 1.8 [place] # (Auto) 0.5 Eos # (Auto) 0.0 Baso # (Auto) 0.0 Immature Gran # (Auto) 0.10 H Absolute Nucleated RBC 0.00 Immature Gran % 1 H Nucleated RBC % 0 Sodium 138 Potassium 3.5 D Chloride 103 Carbon Dioxide 26.1 Anion Gap 9 BUN 10 Creatinine 0.4 L Estim Creat Clear Calc 95.9 eGFR > 60 BUN/Creatinine Ratio 25 H Glucose 80 Calculated Osmolality 273 L Calcium 8.0 L Corrected Calcium 9.3 Total Bilirubin 0.6 ALT < 7 L Alkaline Phosphatase 101 Total Protein 5.3 L Albumin 2.4 L Globulin 2.9 Albumin/Globulin Ratio 0.8 L Impressions Impression: Failure to thrive PEG placement for enteral hyperalimentation Continue current rate and advance as tolerated Assessment & Plan A&P Narrative # Failure to thrive Consent will be obtained from the family for placement of a PEG tube via fiberoptic esophagogastroduodenoscopy under intravenous moderate sedation tentatively scheduled for tomorrow N.p.o. midnight tonight Ancef 1 g IV piggyback on-call to endoscopy for the procedure Please do not give the Ancef tonight Other medical problems include Essential hypertension Diabetes mellitus type 2 Hyperlipidemia CVA Thank you very much for the opportunity to participate in the care of this patient Time Spent With Patient Time: Total time spent is greater than 50% in coordination of care (as documented) at patient's floor/unit and/or counseling patient:
[2024-08-17 20:00] VITALS: BP 104/50; PULSE 83; PULSE 86; RESP 16; TEMP 36.6; O2SAT 97
[2024-08-18] VITALS: BP 110/50; PULSE 82; RESP 16; TEMP 36.4; O2SAT 98
[2024-08-18 04:00] VITALS: BP 124/66; PULSE 91; RESP 16; TEMP 36.7; O2SAT 98
[2024-08-18 07:43] VITALS: BP 151/96; PULSE 101; RESP 19; TEMP 37.2; O2SAT 98
[2024-08-18] MEDS: ENOXAPARIN SOD INJ 40 MG/0.4 ML SYRINGE SC (08:15)
[2024-08-18] MEDS: NAPH,KPH MBDB 1 PACKET (1.5 GM) GT ×2 (08:18→20:20)
[2024-08-18] MEDS: THIAMINE INJ 100 MG/ML VIAL 2 ML IVP (08:18)
[2024-08-18] MEDS: MORPHINE SULF INJ 10 MG/ML VIAL IVP (08:23)
[2024-08-18] MEDS: ACETAMINOPHEN 325 MG TABLET 650 MG PO (08:32)
[2024-08-18 08:33] LABS: Basophils % (Auto) 0 % (0-2.5); Eosinophils # (Auto) 0.2 Thou/mm3 (0.0-0.5); Eosinophils % (Auto) 1 % (0-10); Hematocrit 29.2 % (36.0-46.0); Immature Granulocytes % (Auto) 1 % (0-0); Immature Granulocytes Auto 0.11 Thou/mm3 (0.00-0.00); Lymphocytes # (Auto) 2.1 Thou/mm3 (1.0-4.8); Lymphocytes % (Auto) 17 % (10-50); Mean Corpuscular HGB Conc 34.2 g/dl (31.0-37.0); Mean Corpuscular Hemoglobin 30.4 pg (25.0-35.0); Mean Corpuscular Volume 89 fL (80-100); Monocytes # (Auto) 0.4 Thou/mm3 (0.0-0.8); Monocytes % (Auto) 3 % (0-12); Neutrophils # (Auto) 9.6 Thou/mm3 (1.8-7.7); Neutrophils % (Auto) 78 % (37-80); Nucleated Red Blood Cell % 0 /100 WBC (0); Platelet Count 359 Thou/mm3 (140-440); RDW Standard Deviation 51.4 fL (36.4-46.3); Red Blood Count 3.29 Miln/mm3 (4.00-5.20); White Blood Count 12.4 Thou/mm3 (3.6-11.0)
[2024-08-18 09:05] LABS: Alanine Aminotransferase < 7 U/L (10-49); Albumin, Serum 2.5 gm/dL (3.4-4.8); Albumin/Globulin Ratio 0.8 (1.2-2.2); Alkaline Phosphatase 108 U/L (46-116); Anion Gap 9 (7-16); BUN/Creatinine Ratio 24 Ratio (12-20); Bilirubin,Total 0.5 mg/dL (0.3-1.2); Blood Urea Nitrogen 12 mg/dL (9-23); Calcium 7.8 mg/dL (8.3-10.6); Carbon Dioxide 28.8 mMol/L (20.0-31.0); Chloride 102 mMol/L (98-107); Creatinine (Component) 0.5 mg/dL (0.6-1.3); Estimated Creatinine Clearance 76.7 mL/min (>60); Globulin 3.2 gm/dL (2.3-3.5); Glucose 89 mg/dL (74-106); Magnesium 1.9 mg/dL (1.6-2.6); Osmolality,Calculated 278 (275-295); Phosphorous 1.5 mg/dL (2.4-5.1); Potassium 3.7 mMol/L (3.4-5.1); Sodium 140 mMol/L (136-145); Total Protein 5.7 gm/dL (5.7-8.2); eGFR > 60 See Note
--- NOTE | 2024-08-18 10:35 | PD.RESPRO ---
Documentation for date of: 08/18/24 Subjective Subjective Interval history: Patient was seen and examined by the bedside. No acute overnight events. The plan is to continue advance the feeding, replete electrolytes and monitor for signs of refeeding syndrome. Anticipate DC in 24-48 hours. Exam Vital Signs Temp Pulse Resp BP Pulse Ox O2 Del Method O2 Flow Rate 98.9 F 101 H 19 151/96 H 98 Room Air 3 08/18/24 07:43 08/18/24 07:43 08/18/24 07:43 08/18/24 07:43 08/18/24 07:43 08/18/24 07:43 08/16/24 16:45 Narrative Exam Gen: Well-developed and well-nourished. HEENT: NCAT, PERRLA, EOMI, MMM, anicteric conjunctivae. CVS: normal S1 and S2. RRR. No M/R/G. Resp: CTA B/L. No rhonchi, rales, crackles or wheezing. Abd: soft, non-tender, non-distended. BS+ in all 4 quadrants. MSK: Good ROM in BUE & BLE. Two pressure ulcers located on the lateral aspect of the right foot measuring around 1 cm in circumference both. Pressure ulcer located on the right buttocks laterally measuring around 2 to 3 cm in circumference and coccygeal ulcer measuring around 4 to 5 m in circumference. Neuro: Right facial droop. Right hemiparesis. Able to follow commands. Alert and oriented x2. Psych: appropriate mood and affect. Objective Labs 08/19/24 04:52 08/19/24 04:52 Labs: Laboratory Results - last 24 hr 08/18/24 08:15 WBC 12.4 H RBC 3.29 L Hgb 10.0 L Hct 29.2 L MCV 89 MCH 30.4 MCHC 34.2 RDW Std Deviation 51.4 H Plt Count 359 D Neut % (Auto) 78 Lymph % (Auto) 17 [place] % (Auto) 3 Eos % (Auto) 1 Baso % (Auto) 0 Neut # (Auto) 9.6 H Lymph # (Auto) 2.1 [place] # (Auto) 0.4 Eos # (Auto) 0.2 Baso # (Auto) 0.0 Immature Gran # (Auto) 0.11 H Absolute Nucleated RBC 0.00 Immature Gran % 1 H Nucleated RBC % 0 Sodium 140 Potassium 3.7 Chloride 102 Carbon Dioxide 28.8 Anion Gap 9 BUN 12 Creatinine 0.5 L Estim Creat Clear Calc 76.7 eGFR > 60 BUN/Creatinine Ratio 24 H Glucose 89 Calculated Osmolality 278 Calcium 7.8 L Corrected Calcium 9.0 Phosphorus 1.5 L Magnesium 1.9 Total Bilirubin 0.5 ALT < 7 L Alkaline Phosphatase 108 Total Protein 5.7 Albumin 2.5 L Globulin 3.2 Albumin/Globulin Ratio 0.8 L Quality Measures Quality Measures sepsis Current suspected stage: ruled out Possible source: wound Blood cultures ordered: yes Antibiotic ordered: No Advance care planning discussed with:: other Assessment & Plan Assessment Current Active Medications: Generic Name Dose Route Start Last Admin Trade Name Freq PRN Reason Stop Dose Admin Acetaminophen 650 mg 08/17/24 16:46 08/18/24 08:32 Acetaminophen 325 Mg Tablet PO 09/16/24 16:45 650 mg Q6HR PRN Administration Fever >100.3 or pain Dextrose 25 ml 08/15/24 01:19 Dextrose 50%-Water Inj 50 Ml Syringe IV 09/14/24 01:18 Q15MIN PRN BG 50-70 responsive npo pt Dextrose 50 ml 08/15/24 01:19 Dextrose 50%-Water Inj 50 Ml Syringe IV 09/14/24 01:18 Q15MIN PRN BG <50 OR BG <70 & pt unresponsive Enoxaparin Sodium 40 mg 08/15/24 09:00 08/18/24 08:15 Enoxaparin Sod Inj 40 Mg/0.4 Ml Syringe SC 08/29/24 08:59 40 mg QDAY MARYSE Administration Glucagon 1 mg 08/15/24 01:19 Glucagon Inj 1 Mg Vial IM Q15MIN PRN BG <70, and no IV access Insulin Human Lispro 0 unit 08/15/24 06:00 08/18/24 06:03 Insulin Lispro (Admelog) 1 Unit/0.01 Ml Unit SC 09/14/24 05:59 Not Given Q6HR [facility] Protocol Morphine Sulfate 2 mg 08/18/24 09:18 Morphine Sulf Inj 10 Mg/Ml Vial IVP 08/20/24 01:14 Q6HR PRN PAIN SCALE 4-10(Mod-Sev Ondansetron HCl 4 mg 08/15/24 01:15 Ondansetron Inj 2 Mg/Ml Inj 2 Ml IVP 09/14/24 01:14 Q6H PRN NAUSEA OR VOMITING Protocol Potassium Phos/Sodium Phos 1 packet 08/18/24 09:00 08/18/24 08:18 [facility] 1 Packet (1.5 Gm) GT 08/21/24 08:59 1 packet BID MARYSE Administration Thiamine HCl 100 mg 08/18/24 09:00 08/18/24 08:18 Thiamine Inj 100 Mg/Ml Vial 2 Ml IVP 09/17/24 08:59 100 mg QDAY MARYSE Administration Plan The patient is a 74-year-old female with past medical history of hypertension, DM2, hyperlipidemia, and CVA with residual deficits was admitted to the hospital on 08/15/2024for failure to thrive requiring PEG tube placement. #Failure to thrive Patient came in from home where she was discharged previously on hospice, but patient has been having ongoing deterioration with poor oral intake. Patient was previously recommended to have PEG tube placed, but family at this time was against PEG tube placement. Today patient's family decided that they would like to proceed with PEG tube placement to ensure patient's get proper nutrition. Plan: -PEG tube placed 08/16 -Glucerna 1.2 at 20 ml/hr x 24 hrs via PEG tube by pump, advancing by 10 ml every 12 hours, goal is 55 ml/hr x24. -GI consulted, appreciate recommendations -Registered dietitian and speech therapy consulted, appreciate recs #Hx of DM2 Last A1c was 4.8 05/2024 Plan: -Blood glucose checks every 6 -ISS glucose checks and hypoglycemia protocol ordered #Electrolyte abnormalities 08/16/2024 potassium 2.8, magnesium 1.3, phosphorus 1.5 ? Repleted ? Daily labs #Hx of hypertension #Hx of hyperlipidemia #Hx of CVA with residual deficits Patient at this time has been having issues with swallowing therefore is n.p.o. and cannot be given any medications Pending home medication reconciliation and PEG tube placement before starting any home medications. Plan: - will hold BP meds for now due to normal blood pressure Disposition: med surg Diet: Glucerna 1.2 GI prophylaxis: not indicated DVT prophylaxis: lovenox Code: Full Plan of care discussed with attending Dr. Novak. Jolly Storm MD, PGY 1. Attending Provider Attestation/Addendum I, Jennifer Novak DO, attest that I was physically present for the julio portions of the service and evaluated the patient with the resident and I reviewed and discussed the case with the resident and agree with the resident's findings and plans of care as documented above Patient seen and evaluated this AM. She states she is feeling well. However, she has been tachycardic with hypophosphatemia and mild hypokalemia, concerning for refeeding syndrome. Will replete electrolytes and slowly advance diet. Monitor electrolytes. If patient remains stable in AM, anticipate DC to SNF.
[2024-08-18] MEDS: POTASSIUM CHLORIDE 10% 20 MEQ/15 ML UDC 40 MEQ GT (10:37)
[2024-08-18 11:28] VITALS: BP 124/64; PULSE 93; RESP 15; TEMP 36.7; O2SAT 98
[2024-08-18] MEDS: MORPHINE SULF INJ 10 MG/ML VIAL 2 MG IVP (15:22)
[2024-08-18 15:59] VITALS: BP 129/62; PULSE 84; RESP 16; TEMP 37.2; O2SAT 96
[2024-08-18 20:00] VITALS: BP 97/50; PULSE 81; RESP 16; TEMP 36.8; O2SAT 99
--- NOTE | 2024-08-18 20:19 | PD.IMPROG ---
Documentation for date of: 08/18/24 Subjective Subjective Interval history: Patient evaluated PEG site looks clean Continue enteral hyperalimentation Exam Vital Signs Temp Pulse Resp BP Pulse Ox O2 Del Method O2 Flow Rate 98.9 F 84 16 129/62 96 Room Air 3 08/18/24 15:59 08/18/24 15:59 08/18/24 15:59 08/18/24 15:59 08/18/24 15:59 08/18/24 07:43 08/16/24 16:45 Objective Labs 08/18/24 08:15 08/18/24 08:15 Labs: Laboratory Results - last 24 hr 08/18/24 08:15 WBC 12.4 H RBC 3.29 L Hgb 10.0 L Hct 29.2 L MCV 89 MCH 30.4 MCHC 34.2 RDW Std Deviation 51.4 H Plt Count 359 D Neut % (Auto) 78 Lymph % (Auto) 17 [place] % (Auto) 3 Eos % (Auto) 1 Baso % (Auto) 0 Neut # (Auto) 9.6 H Lymph # (Auto) 2.1 [place] # (Auto) 0.4 Eos # (Auto) 0.2 Baso # (Auto) 0.0 Immature Gran # (Auto) 0.11 H Absolute Nucleated RBC 0.00 Immature Gran % 1 H Nucleated RBC % 0 Sodium 140 Potassium 3.7 Chloride 102 Carbon Dioxide 28.8 Anion Gap 9 BUN 12 Creatinine 0.5 L Estim Creat Clear Calc 76.7 eGFR > 60 BUN/Creatinine Ratio 24 H Glucose 89 Calculated Osmolality 278 Calcium 7.8 L Corrected Calcium 9.0 Phosphorus 1.5 L Magnesium 1.9 Total Bilirubin 0.5 ALT < 7 L Alkaline Phosphatase 108 Total Protein 5.7 Albumin 2.5 L Globulin 3.2 Albumin/Globulin Ratio 0.8 L Impressions Impression: Failure to thrive Enteral hyperalimentation via the newly placed PEG tube to continue Assessment & Plan A&P Narrative # Failure to thrive Consent will be obtained from the family for placement of a PEG tube via fiberoptic esophagogastroduodenoscopy under intravenous moderate sedation tentatively scheduled for tomorrow N.p.o. midnight tonight Ancef 1 g IV piggyback on-call to endoscopy for the procedure Please do not give the Ancef tonight Other medical problems include Essential hypertension Diabetes mellitus type 2 Hyperlipidemia CVA Thank you very much for the opportunity to participate in the care of this patient Time Spent With Patient Time: Total time spent is greater than 50% in coordination of care (as documented) at patient's floor/unit and/or counseling patient:
[2024-08-19] VITALS: BP 136/70; PULSE 90; RESP 16; TEMP 36.9; O2SAT 95
[2024-08-19 04:00] VITALS: BP 141/66; PULSE 92; RESP 16; TEMP 36.8; O2SAT 97
[2024-08-19 05:40] LABS: Basophils % (Auto) 0 % (0-2.5); Eosinophils # (Auto) 0.2 Thou/mm3 (0.0-0.5); Eosinophils % (Auto) 1 % (0-10); Hematocrit 29.1 % (36.0-46.0); Hemoglobin 9.7 g/dL (12.0-16.0); Immature Granulocytes % (Auto) 1 % (0-0); Immature Granulocytes Auto 0.11 Thou/mm3 (0.00-0.00); Lymphocytes # (Auto) 1.7 Thou/mm3 (1.0-4.8); Lymphocytes % (Auto) 12 % (10-50); Mean Corpuscular HGB Conc 33.3 g/dl (31.0-37.0); Mean Corpuscular Hemoglobin 30.1 pg (25.0-35.0); Mean Corpuscular Volume 90 fL (80-100); Monocytes # (Auto) 0.5 Thou/mm3 (0.0-0.8); Monocytes % (Auto) 4 % (0-12); Neutrophils # (Auto) 11.9 Thou/mm3 (1.8-7.7); Neutrophils % (Auto) 82 % (37-80); Nucleated Red Blood Cell % 0 /100 WBC (0); Platelet Count 363 Thou/mm3 (140-440); RDW Standard Deviation 52.6 fL (36.4-46.3); Red Blood Count 3.22 Miln/mm3 (4.00-5.20); White Blood Count 14.5 Thou/mm3 (3.6-11.0)
[2024-08-19] MEDS: MORPHINE SULF INJ 10 MG/ML VIAL 2 MG IVP (06:24)
[2024-08-19 06:25] LABS: Alanine Aminotransferase < 7 U/L (10-49); Albumin, Serum 2.3 gm/dL (3.4-4.8); Albumin/Globulin Ratio 0.7 (1.2-2.2); Alkaline Phosphatase 115 U/L (46-116); Anion Gap 9 (7-16); BUN/Creatinine Ratio 22 Ratio (12-20); Bilirubin,Total 0.3 mg/dL (0.3-1.2); Blood Urea Nitrogen 11 mg/dL (9-23); Calcium 7.6 mg/dL (8.3-10.6); Carbon Dioxide 27.6 mMol/L (20.0-31.0); Chloride 101 mMol/L (98-107); Creatinine (Component) 0.5 mg/dL (0.6-1.3); Estimated Creatinine Clearance 76.7 mL/min (>60); Globulin 3.1 gm/dL (2.3-3.5); Glucose 97 mg/dL (74-106); Magnesium 1.7 mg/dL (1.6-2.6); Osmolality,Calculated 275 (275-295); Phosphorous 1.8 mg/dL (2.4-5.1); Potassium 4.3 mMol/L (3.4-5.1); Sodium 138 mMol/L (136-145); Total Protein 5.4 gm/dL (5.7-8.2); eGFR > 60 See Note
[2024-08-19 08:00] VITALS: BP 145/69; PULSE 94; RESP 19; TEMP 36.9; O2SAT 100
[2024-08-19] MEDS: ENOXAPARIN SOD INJ 40 MG/0.4 ML SYRINGE SC (09:06)
[2024-08-19] MEDS: THIAMINE 100 MG TABLET PO (09:07)
[2024-08-19] MEDS: NAPH,KPH MBDB 1 PACKET (1.5 GM) GT (09:07)
--- NOTE | 2024-08-19 10:18 | PC.SS ---
BUSINESS INTELLIGENCE CONSULTANT informed by [facility] staff that patient is aligned with [facility] services. Per [facility] staff, lineman apprentice would like patient to transition to [facility] at the time of discharge. BUSINESS INTELLIGENCE CONSULTANT provided update to search planner.
[2024-08-19 12:00] VITALS: BP 130/68; PULSE 96; RESP 16; TEMP 37.4; O2SAT 96
--- NOTE | 2024-08-19 13:36 | ESDS_ITS ---
<Statement entered by Jennifer Novak DO - 08/19/24 16:42> I, Jennifer Novak DO, attest that I was physically present for the julio portions of the service and evaluated the patient with the resident and I reviewed and discussed the case with the resident and agree with the resident's findings and plans of care as documented above <Statement entered by Paolo Welsh MD - 08/19/24 14:17> I discussed with and supervised the intern architect physician involved in the care of this patient. Patient assessment and plan was discussed with entire medicine team, including my attending. I agree with the assessment and plan as documented by intern architect doctor. Patient care was discussed with my attending physician Dr. Scarlet Welsh, PGY-2 Planned Discharge Date 08/19/24 DS: Providers Provider Date of admission: 08/15/24 01:29 Primary care physician: Physician Panda Primary/Family Admitting Provider: Jennifer Novak DO Attending Provider on Admission: Jennifer Novak DO Consults: 08/15/24 01:29 Consult to Gastroenterology Routine Comment: Consulting Provider: Corinne Guillaume 08/15/24 01:32 Referral Registered Dietitian Routine Comment: Referral Speech Therapy Routine Comment: 08/15/24 07:38 Referral Wound Care Urgent Comment: 08/16/24 16:41 Referral Registered Dietitian Urgent Comment: 08/18/24 09:23 Referral Hospice Routine Comment: Attending Provider on DC: Jolly Storm MD Discharging Provider: Jolly Storm MD DS: Diagnosis Problem List Completed Was Problem List Reviewed/Reconciled?: Yes Hospital Course Hospital Course Hospital course: The patient is a 74-year-old female with a previous medical history of hypertension, type 2 diabetes mellitus, hyperlipidemia, CVA with residual deficit who was admitted to the hospital on 08/15/2024 due to buttock pain and decreased oral intake. Patient is AAO x 2 on the baseline. Previously she was admitted to the hospital due to failure to thrive and was discharged to home with hospice. Patient's statistical machine mechanic, Cinthia reported that she is experiencing difficulties taking care of the patient and would like for the patient to be placed in the SNF. In the ED patient had high blood pressure, was tachycardic and not febrile. Labs were showing mild leukocytosis, elevated lactate hydrogenous. U tox was positive for opiates. Chest x-ray was unremarkable. She was admitted for failure to thrive treatment and management. After discussion with the family and the patient it was decided to proceed with PEG tube placement. GI specialist Dr. Guillaume was consulted for PEG tube placement. After successful placement of PEG tube, patient was gradually started on the tube feeds and was monitored for signs of refeeding syndromes. Electrolytes were repleted as needed, rate of goal feeds was advanced successfully. Family decided not to proceed with hospice and chose to discharge patient to the SNF. Patient was seen and examined by the bedside and was medically cleared for discharge to SNF on 08/19/2024. Hospital diagnoses: #Failure to thrive #Hx of DM2 #Electrolyte abnormalities #Hx of hypertension #Hx of hyperlipidemia #Hx of CVA with residual deficits Discharge recommendations: - Follow-up with your PCP in 1 week - Take amlodipine 5 mg daily - Take atorvastatin 40 mg daily - Take hydrocodone-acetaminophen 5/325 mg for pain as needed every 6 hours - Take Plavix 75 mg daily - Stop taking Morphine 5 mg as needed - Stop taking lorazepam 0.5 mg as needed - Glucerna 1.2 at initial rate 20 mL/hour x24 hours, advance to 10 mL every 12 hours to goal rate of 55 mL/hour x 24 hours. Water flushes 30 mL/h (or per MD) - Russ 1 packet unflavored twice daily mixed with 6-8 oz of water via PEG tube - Recreational/pleasure feeds?dysphagia pur?e/extremely thick liquids, ice chips and water sips. - Aspiration precautions. Plan of care discussed with attending Dr. Novak, PGY-[address] Welsh. Jolly Storm MD, PGY 1. Time Spent with Patient Time attestation: Total time spent providing and/or coordinating discharge services: Time spent: Greater than 30 minutes Exam Vital Signs Temp Pulse Resp BP Pulse Ox O2 Del Method O2 Flow Rate 99.4 F 96 16 130/68 96 Room Air 3 08/19/24 12:00 08/19/24 12:08/19/24 12:08/19/24 12:00 08/19/24 12:08/19/24 08:08/16/24 16:45 Narrative Exam Gen: Well-developed and well-nourished. HEENT: NCAT, PERRLA, EOMI, MMM, anicteric conjunctivae. CVS: normal S1 and S2. RRR. No M/R/G. Resp: CTA B/L. No rhonchi, rales, crackles or wheezing. Abd: soft, non-tender, non-distended. BS+ in all 4 quadrants. MSK: Good ROM in BUE & BLE. Two pressure ulcers located on the lateral aspect of the right foot measuring around 1 cm in circumference both. Pressure ulcer located on the right buttocks laterally measuring around 2 to 3 cm in circumference and coccygeal ulcer measuring around 4 to 5 m in circumference. Neuro: Right facial droop. Right hemiparesis. Able to follow commands. Alert and oriented x2. Psych: appropriate mood and affect. Discharge Plan Plan Patient Disposition: Xfer Skilled [facility] (SNF) Disposition Comment: [facility] Patient condition on transfer: Stable Care Plan Goals: Discharge recommendations: - Follow-up with your PCP in 1 week - Take amlodipine 5 mg daily - Take atorvastatin 40 mg daily - Take hydrocodone-acetaminophen 5/325 mg for pain as needed every 6 hours - Take Plavix 75 mg daily - Stop taking Morphine 5 mg as needed - Stop taking lorazepam 0.5 mg as needed - Glucerna 1.2 at initial rate 20 mL/hour x24 hours, advance to 10 mL every 12 hours to goal rate of 55 mL/hour x 24 hours. Water flushes 30 mL/h (or per MD) - Russ 1 packet unflavored twice daily mixed with 6-8 oz of water via PEG tube - Recreational/pleasure feeds?dysphagia pur?e/extremely thick liquids, ice chips and water sips. - Aspiration precautions. Prescriptions/Referrals Prescriptions/Med Rec: New hydrocodone-acetaminophen 5-325 mg Tablet 1 tab PO Q6HR MDD 4 PRN (Reason: Pain) Qty: 7 0RF amlodipine 5 mg tablet 5 mg feeding tube QDAY 30 Days Qty: 30 0RF Rx Instructions: Take one tablet every day via feeding tube Changed atorvastatin 40 mg tablet 40 mg feeding tube HS 30 Days Qty: 30 0RF Patient Comments: TAKE 1 TABLET BY MOUTH EVERY EVENING FOR HYPERLIPIDEMIA Rx Instructions: Take one tablet every day via feeding tube clopidogrel 75 mg tablet 75 mg feeding tube QDAY 30 Days Qty: 30 0RF Rx Instructions: Take one tablet every day via feeding tube Discontinued morphine concentrate 100 mg/5 mL (20 mg/mL) solution 5 mg PO Q4H PRN (Reason: pain) Patient Comments: give sublingual as needed 5mg every 4 hrs for mild,10mg every 4 hrs for mod & 20mg every 2 hrs for severe pain/sob lorazepam [Lorazepam Intensol] 2 mg/mL concentrate 0.5 mg PO Q4H PRN (Reason: anxiety) Patient Comments: TAKE 0.25ML (0.5MG) UNDER THE TONGUE EVERY 4 HOURS NEEDED FOR ANXIETY, AGITATION, OR RESTLESSNESS FOR NAUSEA AND VOMITING OR SHORTNESS OF BREATH No Action potassium chloride 10 mEq packet 10 meq PO QDAY Qty: 30 0RF Referrals: No Primary/Family,Physician [Primary Care Provider] - Patient/Caregiver Discharge Instructions Education Materials: Understanding PEG Tube Feeding Print Language: Welsh Stand Alone Forms: [employer] Award Info., Patient Portal Info Letter Discharge Order Discharge Orders: Discharge (Routine); Ordered 08/19/24 Ordered By: Jolly Storm Quality Discharge Quality Measures VTE prophylaxis
[2024-08-19 16:00] VITALS: BP 136/82; PULSE 96; RESP 16; TEMP 36.4; O2SAT 97
--- NOTE | 2024-08-19 22:59 | ESPR_ITS ---
Documentation for date of: 08/19/24 Subjective Subjective Interval history: Late entry for the note PEG site checked No drainage Tolerating enteral feeding Exam Vital Signs Temp Pulse Resp BP Pulse Ox O2 Del Method O2 Flow Rate 97.6 F 96 16 136/82 H 97 Room Air 3 08/19/24 16:00 08/19/24 16:00 08/19/24 16:00 08/19/24 16:00 08/19/24 16:00 08/19/24 08:00 08/16/24 16:45 Objective Labs 08/19/24 04:52 08/19/24 04:52 Labs: Laboratory Results - last 24 hr 08/19/24 04:52 WBC 14.5 H RBC 3.22 L Hgb 9.7 L Hct 29.1 L MCV 90 MCH 30.1 MCHC 33.3 RDW Std Deviation 52.6 H Plt Count 363 Neut % (Auto) 82 H Lymph % (Auto) 12 Thurston % (Auto) 4 Eos % (Auto) 1 Baso % (Auto) 0 Neut # (Auto) 11.9 H Lymph # (Auto) 1.7 Thurston # (Auto) 0.5 Eos # (Auto) 0.2 Baso # (Auto) 0.0 Immature Gran # (Auto) 0.11 H Absolute Nucleated RBC 0.00 Immature Gran % 1 H Nucleated RBC % 0 Sodium 138 Potassium 4.3 D Chloride 101 Carbon Dioxide 27.6 Anion Gap 9 BUN 11 Creatinine 0.5 L Estim Creat Clear Calc 76.7 eGFR > 60 BUN/Creatinine Ratio 22 H Glucose 97 Calculated Osmolality 275 Calcium 7.6 L Corrected Calcium 9.0 Phosphorus 1.8 L Magnesium 1.7 Total Bilirubin 0.3 ALT < 7 L Alkaline Phosphatase 115 Total Protein 5.4 L Albumin 2.3 L Globulin 3.1 Albumin/Globulin Ratio 0.7 L Impressions Impression: Failure to thrive PEG placement for enteral feeding Okay to discharge patient Assessment & Plan A&P Narrative # Failure to thrive Consent will be obtained from the family for placement of a PEG tube via fiberoptic esophagogastroduodenoscopy under intravenous moderate sedation tentatively scheduled for tomorrow N.p.o. midnight tonight Ancef 1 g IV piggyback on-call to endoscopy for the procedure Please do not give the Ancef tonight Other medical problems include Essential hypertension Diabetes mellitus type 2 Hyperlipidemia CVA Thank you very much for the opportunity to participate in the care of this patient Time Spent With Patient Time: Total time spent is greater than 50% in coordination of care (as documented) at patient's floor/unit and/or counseling patient:
== END 2024-08-19 17:08 | disposition skilled nursing facility (03) | DRG 641 ==
LOC: SERX 08-15 00:27 → SERHOLD 08-15 01:47 → S3SX 08-15 03:42
PROVIDERS: Physician Assistant; Specialist; Admitting Provider Internal Medicine; Emergency Provider Emergency Medicine; Visit Provider Internal Medicine
PROC: 0DH63UZ Insertion of Feeding Device into Stomach, Percutaneous Approach (ICD-10-PCS; CPT 43246; principal; 2024-08-16 15:30)
DX: R62.7 Adult failure to thrive (principal); I69.354 Hemiplegia and hemiparesis following cerebral infarction affecting left non-dominant side; E87.20 Acidosis, unspecified; Z68.21 Body mass index [BMI] 21.0-21.9, adult; E11.9 Type 2 diabetes mellitus without complications; I10 Essential (primary) hypertension; E78.5 Hyperlipidemia, unspecified; L89.212 Pressure ulcer of right hip, stage 2; E86.0 Dehydration; L89.109 Pressure ulcer of unspecified part of back, unspecified stage; M85.80 Other specified disorders of bone density and structure, unspecified site; E83.39 Other disorders of phosphorus metabolism; E87.6 Hypokalemia; Z51.5 Encounter for palliative care; Z66 Do not resuscitate; Z93.1 Gastrostomy status
CPT/HCPCS: 36415; 71045; 80053; 80307; 81001; 83605; 83615; 83735; 83880; 84100; 84145; 84484; 85025; 85610; 85730; 86140; 87040; 87086; 92526; 92610; 93005; 96361; 96365; 96367; 96375; 99285; A4649; J0689; J1171; J1650; J2250; J2270; J2405; J2543; J3010; J3411; J3475; J3480; J3490; J7030; J7121; A9270